=== PATIENT | female | born 1995 | race African-American/Black ===

== ENCOUNTER 2016-06-29 06:36 | Day surgery (SDC) | payer MEDICAID ==
[2016-06-29] MEDS ORDERED: Propofol 200 MG/20 ML SDV ONE (07:19)
[2016-06-29] MEDS ORDERED: Midazolam 1 MG/ML 2 ML SDV ONE (07:19)
[2016-06-29] MEDS: Lactated Ringers 1,000 ML IV SCH ×2 (07:19→08:48)
[2016-06-29] MEDS ORDERED: Dexamethasone 4 MG/ML 5 ML MDV ONE (07:19)
[2016-06-29] MEDS ORDERED: fentaNYL 100 MCG/2 ML SDV ONE (07:19)
[2016-06-29] MEDS ORDERED: Ondansetron 4 MG/2 ML SDV ONE (07:19)
--- NOTE | 2016-06-29 07:19 | PCM.PREANE ---
Preanesthetic Assessment - Anesthesia/Transfusion/Family Hx Anesthesia History: No Prior Anesthesia Family History of Anesthesia Reaction: No Transfusion History: No Prior Transfusion(s) - Review of Systems General: No Symptoms Pulmonary: No Symptoms Cardiovascular: No Symptoms Gastrointestinal: No symptoms Neurological: No Symptoms Other: Reports: None - Physical Assessment NPO Status Date: 06/28/16 Height: 1.6 m Weight: 57.153 kg ASA Class: 2 Mental Status: Alert & Oriented x3 Airway Class: Mallampati = 1 Dentition: Reports: Normal Dentition ROM/Head Extension: Full Lungs: Clear to auscultation, Normal respiratory effort Cardiovascular: Regular Rate, Regular Rhythm - Lab Values: Laboratory Last Values WBC 6.67 K/uL (4.0-11.0) 06/29/16 06:49 RBC 4.51 M/uL (4.30-5.90) 06/29/16 06:49 Hgb 13.4 g/dL (12.0-16.0) 06/29/16 06:49 Hct 38.4 % (36.0-46.0) 06/29/16 06:49 MCV 85.1 fL (80.0-98.0) 06/29/16 06:49 MCH 29.7 pg (27.0-32.0) 06/29/16 06:49 MCHC 34.9 g/dL (31.0-37.0) 06/29/16 06:49 RDW Std Deviation 38.3 fl (28.0-62.0) 06/29/16 06:49 RDW Coeff of Dionne 12 % (11.0-15.0) 06/29/16 06:49 Plt Count 194 K/uL (150-400) 06/29/16 06:49 MPV 10.40 fL (7.40-12.00) 06/29/16 06:49 Nucleated RBC % 0.0 /100WBC 06/29/16 06:49 Nucleated RBCs # 0 K/uL 06/29/16 06:49 - Allergies Allergies/Adverse Reactions: Allergies Allergy/AdvReac Type Severity Reaction Status Date / Time No Known Allergies Allergy Verified 12/28/15 18:56 - Anesthesia Plan Pre-Op Medication Ordered: None - Acknowledgements Anesthesia Type Planned: General Anesthesia Pt an Appropriate Candidate for the Planned Anesthesia: Yes Alternatives and Risks of Anesthesia Discussed w Pt/Guardian: Yes Pt/Guardian Understands and Agrees with Anesthesia Plan: Yes PreAnesthesia Questionnaire - Past Health History Medical/Surgical History: Denies Medical/Surgical History Gastrointestinal History: Reports: Other (see below) Other Gastrointestinal History: occasional heartburn LAB SUPPORT TECH History: Reports: Other (see below) Other OB/BYN History: missed AB at present Musculoskeletal History: Reports: Other (see below) Other Musculoskeletal History: scoliosis - Past Surgical History Head Surgeries/Procedures: Reports: None - SUBSTANCE USE Smoking Status *Q: Never Smoker Recreational Drug Use History: No - HOME MEDS Home Medications: Home Meds . [No Known Home Meds] 12/28/15 [History] - CURRENT (IN HOUSE) MEDS Current Meds: Current Medications Lactated Ringer's (Ringers, Lactated) 1,000 mls @ 125 mls/hr IV ASDIRECTED [facility] Preanesthetic Assessment - ANESTHESIA/TRANSFUSION/FAMILY HX Family History of Anesthesia Reaction: No - PHYSICAL ASSESSMENT Height: 1.6 m Weight: 57.153 kg - LAB Values: Laboratory Last Values WBC 6.67 K/uL (4.0-11.0) 06/29/16 06:49 RBC 4.51 M/uL (4.30-5.90) 06/29/16 06:49 Hgb 13.4 g/dL (12.0-16.0) 06/29/16 06:49 Hct 38.4 % (36.0-46.0) 06/29/16 06:49 MCV 85.1 fL (80.0-98.0) 06/29/16 06:49 MCH 29.7 pg (27.0-32.0) 06/29/16 06:49 MCHC 34.9 g/dL (31.0-37.0) 06/29/16 06:49 RDW Std Deviation 38.3 fl (28.0-62.0) 06/29/16 06:49 RDW Coeff of Dionne 12 % (11.0-15.0) 06/29/16 06:49 Plt Count 194 K/uL (150-400) 06/29/16 06:49 MPV 10.40 fL (7.40-12.00) 06/29/16 06:49 Nucleated RBC % 0.0 /100WBC 06/29/16 06:49 Nucleated RBCs # 0 K/uL 06/29/16 06:49 - ALLERGIES Allergies/Adverse Reactions: Allergies Allergy/AdvReac Type Severity Reaction Status Date / Time No Known Allergies Allergy Verified 12/28/15 18:56
[2016-06-29] MEDS ORDERED: Misoprostol 200 MCG Tab ONE (07:27)
[2016-06-29] MEDS ORDERED: Methylergonovine 0.2 MG/1 ML Amp ONE (08:14)
[2016-06-29] MEDS ORDERED: Ketorolac 30 MG/ML SDV ONE (08:21)
[2016-06-29] MEDS ORDERED: Acetaminophen/oxyCODONE 325-5 MG Tab PO PRN (08:29)
--- NOTE | 2016-06-29 08:36 | PCM.OPNOTE ---
- General Post-Op/Procedure Note Date of Surgery/Procedure: 06/29/16 Operative Procedure(s): Suction dilatiation and curettage Findings: 7 weeks sized anteverted uterus, mobile, cervix open with product of conception at external os, moderate bleeding. No adnexal masses. Pre Op Diagnosis: Missed Post-Op Diagnosis: Same Anesthesia Technique: General LMA Primary Surgeon: Leigha Caraballo Pathology: Products of conception Fluid Replacement, Intraop: 1,000 EBL in mLs: 50 Complications: None Condition: Good
--- NOTE | 2016-06-29 08:56 | PCM.POSTAN ---
POST ANESTHESIA ASSESSMENT - MENTAL STATUS Mental Status: oriented, somnolent - RESPIRATORY Respiratory Status: respiratory rate WNL, airway patent, O2 saturation stable - CARDIOVASCULAR CV Status: pulse rate WNL, blood pressure stable - GASTROINTESTINAL GI Status: no symptoms - POST OP HYDRATION Hydration Status: adequate & stable
--- NOTE | 2016-06-29 10:39 | PCM48HPAN ---
Post Anesthesia Note - EVALUATION WITHIN 48HRS OF ANESTHETIC Vital Signs in Normal Range: Yes Patient Participated in Evaluation: Yes Respiratory Function Stable: Yes Airway Patent: Yes Cardiovascular Function Stable: Yes Hydration Status Stable: Yes Pain Control Satisfactory: Yes Nausea and Vomiting Control Satisfactory: Yes Mental Status Recovered: Yes
[2016-06-29 12:04] VITALS: BP 106/68
--- NOTE | 2016-06-29 12:49 | OR ---
SURGEON: Leigha Caraballo MD DATE OF PROCEDURE: 06/29/2016 PREOPERATIVE DIAGNOSIS: Missed . POSTOPERATIVE DIAGNOSIS: Missed . PROCEDURE: Suction dilatation and curettage. ANESTHESIA: General LMA. ESTIMATED BLOOD LOSS: 100 mL. COMPLICATIONS: None. DISPOSITION: Stable to recovery room. PATHOLOGY: Products of conception. FINDINGS: Examination under anesthesia revealed an open cervical os with products of conception at the external os, Uterus, anteverted approximately 7-week size, mobile with no adnexal masses palpable. Moderate amount of bleeding. BRIEF HISTORY: The patient is a 21-year-old primigravida, who was diagnosed with missed on her initial OB visit 2 weeks ago. The patient opted to have a follow sonogram to confirm the diagnosis before making management decision, this was performed a week later confirming the diagnosis of a missed , gestational sac of approximately 7 weeks with no embryo. Management options were then discussed with the patient, and she opted to proceed with a surgical management. Risks were reviewed including, but not limited to infection, bleeding, uterine perforation, and possibility of Asherman syndrome. Understanding these risks, she signed the consent to proceed. She received 200 mcg of Cytotec orally last night to enable ease of cervical dilatation during the procedure. PROCEDURE IN DETAIL: The patient was taken to the operating room, where she received general anesthesia without difficulty. After adequate level of anesthesia, she was placed in the dorsal lithotomy position, prepped and draped in a normal sterile fashion. The bladder was emptied. Examination under anesthesia revealed the aforementioned findings. A bivalve speculum was placed into the vagina and the anterior lip of the cervix was grasped with an Allis clamp. Moderate amount of products of conception were removed from the cervical os with ovum forceps. The external cervical os was opened. Using a size 8 curved cannula, suction evacuation of the uterus was performed, with minimal amount of products of conception were retrieved. Thereafter, gentle sharp curettage were performed with a large curette until uterine grittiness was felt. After these procedures, the bleeding reduced drastically. Intraoperative sonogram was performed by ne and a thin endometrium lining was noted. The Allis clamp was removed from the anterior lip of the cervix. The area was found to be hemostatic. All the other instruments were removed from the vagina. Sponge, lap, and instrument counts were correct at the end of the procedure. The patient tolerated the procedure well and was taken to the recovery room in a stable condition. ADRY / CHA /[id number] ALLISON
== END 2016-06-29 10:20 | disposition home or self-care (01) ==
LOC: MW.SDS 06:36
PROVIDERS: ATTEND Obstetrics & Gynecology
DX: O02.1 Missed abortion (principal); Z79.899 Other long term (current) drug therapy
CPT/HCPCS: 36415; 59820; 85027; A9270; J1100; J1885; J2250; J2405; J3010; J7120; 01965; 88305; J2210; J2704

== ENCOUNTER 2017-01-30 22:56 | Observation (INO) | payer MEDICAID ==
[2017-01-30] MEDS ORDERED: Sodium Chloride 0.9% 1,000 ML IV ONE (23:00)
--- NOTE | 2017-01-30 23:02 | EDM.PDOC ---
ED HPI GENERAL MEDICAL PROBLEM - General Chief Complaint: ARTISTIC DIRECTOR Problem Stated Complaint: DIZZY Time Seen by Provider: 01/30/17 23:00 - History of Present Illness INITIAL COMMENTS - FREE TEXT/NARRATIVE: HISTORY AND PHYSICAL: History of present illness: Patient's 21-year-old female presents with a concern of menorrhagia she's had heavy menses with clots and felt slightly dizzy she's unsure of she's had no abdominal pain she does describe some mild cramping consistent with her menses she denies chest pain shortness breath or palpitations Review of systems: As per history of present illness and below otherwise all systems reviewed and negative. Past medical history: As per history of present illness and as reviewed below otherwise noncontributory. Surgical history: As per history of present illness and as reviewed below otherwise noncontributory. Social history: No reported history of drug or alcohol abuse. Family history: As per history of present illness and as reviewed below otherwise noncontributory. Physical exam: HEENT: Atraumatic, normocephalic, pupils reactive, negative for conjunctival pallor or scleral icterus, mucous membranes moist, throat clear, neck supple, nontender, trachea midline. Lungs: Clear to auscultation, breath sounds equal bilaterally, chest nontender. Heart: S1S2, regular, negative for clicks, rubs, or JVD. Abdomen: Soft, nondistended, nontender. Negative for masses or hepatosplenomegaly. Negative for costovertebral tenderness. Pelvis: Stable nontender. Genitourinary: Deferred. Rectal: Deferred. Extremities: Atraumatic, negative for cords or calf pain. Neurovascular unremarkable. Neuro: Awake, alert, oriented. Cranial nerves II through XII unremarkable. Cerebellum unremarkable. Motor and sensory unremarkable throughout. Exam nonfocal. Diagnostics: CBC CMP hCG Therapeutics: Normal saline 1 L bolus Impression: #1 Menorrhagia Definitive disposition and diagnosis as appropriate pending reevaluation and review of above. - Related Data Allergies Allergy/AdvReac Type Severity Reaction Status Date / Time No Known Allergies Allergy Verified 01/30/17 23:05 Home Meds: Home Meds . [No Known Home Meds] 12/28/15 [History] Past Medical History - Past Health History Medical/Surgical History: Denies Medical/Surgical History Gastrointestinal History: Reports: Other (See Below) Other Gastrointestinal History: occasional heartburn ARTISTIC DIRECTOR History: Reports: Other (See Below) Other OB/BYN History: missed AB at present Musculoskeletal History: Reports: Other (See Below) Other Musculoskeletal History: scoliosis - Past Surgical History Head Surgeries/Procedures: Reports: None Social & Family History - Tobacco Use Smoking Status *Q: Never Smoker - Caffeine Use Caffeine Use: Reports: Soda - Recreational Drug Use Recreational Drug Use: No ED ROS GENERAL - Review of Systems Review Of Systems: ROS reveals no pertinent complaints other than HPI. ED EXAM, GENERAL - Physical Exam Exam: See Below (See dictation) Course - Vital Signs Text/Narrative:: Case was discussed with MANAGER INTERFACE on-call who agrees to consult patient will be admitted to hospital as per ARTISTIC DIRECTOR a request case was discussed with Dr. Almanza who graciously accepted the patient will be admitted to telemetry with diagnosis of menorrhagia and symptomatic anemia Last Recorded V/S: Last Vital Signs Temp 36.0 C 01/30/17 23:00 Pulse 119 H 01/30/17 23:00 Resp 18 01/30/17 23:00 BP 124/87 01/30/17 23:00 Pulse Ox 100 01/30/17 23:00 - Orders/Labs/Meds Orders: Active Orders 24 hr Category Date Time Status INR,PT,PROTHROMBIN TIME [COAG] Stat Lab 01/31/17 00:24 Ordered TYPE AND SCREEN [BBK] Stat Lab 01/31/17 00:24 Ordered Labs: Laboratory Tests 01/30/17 01/30/17 01/30/17 Range/Units 23:05 23:05 23:05 WBC 6.58 (4.0-11.0) K/uL RBC 2.52 L (4.30-5.90) M/uL Hgb 6.6 L (12.0-16.0) g/dL Hct 19.9 L (36.0-46.0) % MCV 79.0 L (80.0-98.0) fL MCH 26.2 L (27.0-32.0) pg MCHC 33.2 (31.0-37.0) g/dL RDW Std Deviation 38.1 (28.0-62.0) fl RDW Coeff of Dionne 13 (11.0-15.0) % Plt Count 382 (150-400) K/uL MPV 9.90 (7.40-12.00) fL Neut % (Auto) 58.0 (48.0-80.0) % Lymph % (Auto) 32.4 (16.0-40.0) % [place] % (Auto) 8.8 (0.0-15.0) % Eos % (Auto) 0.3 (0.0-7.0) % Baso % (Auto) 0.5 (0.0-1.5) % Neut # (Auto) 3.8 (1.4-5.7) K/uL Lymph # (Auto) 2.1 (0.6-2.4) K/uL [place] # (Auto) 0.6 (0.0-0.8) K/uL Eos # (Auto) 0.0 (0.0-0.7) K/uL Baso # (Auto) 0.0 (0.0-0.1) K/uL Nucleated RBC % 0.0 /100WBC Nucleated RBCs # 0 K/uL Sodium 139 (136-146) mmol/L Potassium 3.8 (3.5-5.1) mmol/L Chloride 107 (98-110) mmol/L Carbon Dioxide 24 (21-31) mmol/L BUN 14 (6.0-23.0) mg/dL Creatinine 0.8 (0.6-1.5) mg/dL Est Cr Clr Drug Dosing 92.79 mL/min Estimated GFR (MDRD) > 60.0 ml/min Glucose 89 (60-110) mg/dL Calcium 9.1 (8.8-10.8) mg/dL Total Bilirubin 0.9 (0.1-1.5) mg/dL AST 15 (5-40) IU/L ALT 12 (8-54) IU/L Alkaline Phosphatase 33 L (40-150) Total Protein 6.9 (6.0-8.0) g/dL Albumin 4.2 (3.5-5.0) g/dL Globulin 2.7 (2.0-3.5) g/dL Albumin/Globulin Ratio 1.6 (1.3-2.8) HCG, Qual NEGATIVE (NEG) Meds: Medications Discontinued Medications Generic Name Dose Route Start Last Admin Trade Name Freq PRN Reason Stop Dose Admin Sodium Chloride 1,000 mls @ 999 mls/hr 01/30/17 23:00 01/30/17 23:08 Normal Saline IV 01/31/17 00:00 999 mls/hr .Bolus ONE Administration Departure - Departure Time of Disposition: 00:30 Disposition: Refer to Observation Condition: Fair Clinical Impression: Anemia, Menorrhagia - Discharge Information Forms: ED Department Discharge - My Orders Last 24 Hours: My Active Orders 01/31/17 00:24 INR,PT,PROTHROMBIN TIME [COAG] Stat TYPE AND SCREEN [BBK] Stat - Assessment/Plan Last 24 Hours: My Active Orders 01/31/17 00:24 INR,PT,PROTHROMBIN TIME [COAG] Stat TYPE AND SCREEN [BBK] Stat
[2017-01-30 23:33] LABS: CHLORIDE,CL 107 mmol/L (98-110); SODIUM,NA 139 mmol/L (136-146)
[2017-01-31] MEDS ORDERED: Docusate Sodium 100 MG Cap PO PRN (00:50)
[2017-01-31] MEDS ORDERED: Temazepam 15 MG Cap PO PRN (00:50)
[2017-01-31] MEDS ORDERED: Ondansetron 4 MG Tab.DIS PO PRN (00:50)
[2017-01-31] MEDS ORDERED: oxyCODONE 5 MG Tab PO PRN (00:50)
[2017-01-31] MEDS ORDERED: Morphine 2 MG/ML Syringe IVPUSH PRN (00:50)
[2017-01-31] MEDS ORDERED: diphenhydrAMINE 50 MG Cap PO ONE ×2 (01:28→01:45)
[2017-01-31] MEDS ORDERED: Tranexamic Acid 1,000 MG in Sodium Chloride 0.9% 100 ML IV ONE (02:46)
[2017-01-31] MEDS: Acetaminophen 325 MG Tab PO PRN ×2 (03:34→13:09)
--- NOTE | 2017-01-31 05:25 | PCM.CONS ---
H&P History of Present Illness - General Date of Service: 01/31/17 Admit Problem/Dx: Admission Diagnosis/Problem Admission Diagnosis/Problem Anemia due to chronic blood loss 21 yo P0 menometrorrhagia ,Symptomatic anemia Source of Information: Patient History Limitations: Reports: No Limitations - History of Present Illness Initial Comments - Free Text/Narative: 21 yo P0010 LMP 01/10 , complaining of heavy vaginal bleeding from december. she cannot quantify the amount of pads or tampoons. her bleeding is associated with passage of clots. She works as a TRAINING DEVELOPER in a senior living. she present to the ER with dizziness and fatigue. She gives a hx of irregular periods. she has not had a period 2 months prior to this period. test done in ER is negative. she denies cramping or lower abdominal pain. Patient had SAB in june which she did a D & C . PMH;- Nil PSH: D & C FSH ;- Non contributory , denies X 3 Allergy nil Lower Abdomen Pain Score (Numeric/FACES): 5 - Related Data Allergies/Adverse Reactions: Allergies Allergy/AdvReac Type Severity Reaction Status Date / Time No Known Allergies Allergy Verified 01/30/17 23:05 Home Medications: Home Meds . [No Known Home Meds] 12/28/15 [History] Past Medical History - Past Health History Medical/Surgical History: Denies Medical/Surgical History Gastrointestinal History: Reports: Other (See Below) Other Gastrointestinal History: occasional heartburn Genitourinary History: Reports: None SHEET LAYER History: Reports: Other (See Below) Other OB/BYN History: missed AB June 2016 Musculoskeletal History: Reports: Other (See Below) Other Musculoskeletal History: scoliosis - Infectious Disease History Infectious Disease History: Reports: None - Past Surgical History Head Surgeries/Procedures: Reports: None Female Surgical History: Reports: D&C Social & Family History - Family History Family Medical History: Noncontributory - Tobacco Use Smoking Status *Q: Never Smoker - Caffeine Use Caffeine Use: Reports: Coffee, Soda - Recreational Drug Use Recreational Drug Use: No H&P Review of Systems - Review of Systems: Review Of Systems: See Below General: Reports: No Symptoms, Malaise, Weakness, Fatigue HEENT: Reports: No Symptoms Pulmonary: Reports: No Symptoms Cardiovascular: Reports: No Symptoms Gastrointestinal: Reports: No Symptoms Genitourinary: Reports: No Symptoms Musculoskeletal: Reports: No Symptoms, Muscle Pain Skin: Reports: No Symptoms Psychiatric: Reports: No Symptoms Neurological: Reports: No Symptoms Hematologic/Lymphatic: Reports: No Symptoms Immunologic: Reports: No Symptoms Exam - Exam Exam: See Below - Vital Signs Vital Signs: Last Vital Signs Temp 36.6 C 01/31/17 04:09 Pulse 97 01/31/17 04:09 Resp 16 01/31/17 04:09 BP 108/58 L 01/31/17 04:09 Pulse Ox 100 01/31/17 04:09 Weight: 53 kg - Exam General: Alert, Oriented Neck: Supple Lungs: Clear to Auscultation Cardiovascular: Regular Rate, Regular Rhythm GI/Abdominal Exam: Normal Bowel Sounds (Female) Exam: Normal Speculum Exam (Normal external genitalia , normal urethra, minimal blood noted posterior fornix ) Rectal (Female) Exam: Normal Exam Back Exam: Normal Inspection - Patient Data Lab Results Last 24 hrs: Laboratory Results - last 24 hr 01/31/17 01/31/17 01/31/17 Range/Units 00:51 00:51 00:51 INR (0.86-1.11) APTT (18.6-31.3) SEC Fibrinogen (215-411) mg/dL Iron 12 L 12 L (50-170) ug/dL TIBC 484 H (273-456) ug/dL % Saturation 2.48 L (20-55) % Blood Type A POSITIVE Antibody Screen NEGATIVE Crossmatch See Detail 01/31/17 01/31/17 01/31/17 Range/Units 03:11 03:11 03:11 INR 1.23 H (0.86-1.11) APTT 23.1 (18.6-31.3) SEC Fibrinogen 155 L (215-411) mg/dL Iron (50-170) ug/dL TIBC (273-456) ug/dL % Saturation (20-55) % Blood Type Antibody Screen Crossmatch Result Diagrams: 01/30/17 23:05 01/30/17 23:05 Consult PN Assessment/Plan Procedures: Procedures ASSAY OF AMYLASE (12/28/15) ASSAY OF LIPASE (12/28/15) BLOOD TYPING SEROLOGIC ABO (06/11/16) BLOOD TYPING SEROLOGIC RH(D) (06/11/16) CARE OF MISCARRIAGE (06/29/16) CHORIONIC GONADOTROPIN ASSAY (12/28/15) CHORIONIC GONADOTROPIN TEST (06/21/16) COMPLETE CBC AUTOMATED (06/29/16) COMPLETE CBC W/AUTO DIFF WBC (12/28/15) COMPREHEN METABOLIC PANEL (12/28/15) CT ABD & PELVIS W/O CONTRAST (12/28/15) EMERGENCY DEPT VISIT (12/28/15) RBC ANTIBODY SCREEN (06/11/16) ROUTINE VENIPUNCTURE (06/29/16) URINALYSIS AUTO W/SCOPE (12/28/15) URINE CULTURE/COLONY COUNT (06/04/16) (1) Menorrhagia SNOMED Code(s): 175971419 Code(s): N92.0 - EXCESSIVE AND FREQUENT MENSTRUATION WITH REGULAR CYCLE Current Visit: Yes Qualifiers: Menorrahagia type: with irregular cycle Qualified Code(s): N92.1 - Excessive and frequent menstruation with irregular cycle Problem List Initiated/Reviewed/Updated: Yes My Orders Last 24 Hours: My Active Orders 01/31/17 03:11 VON [facility] FACTOR ACTIVITY Stat Plan: Labs reviewed. Severe aneamia , with Increased INR , Low Fibrinogen Assessment; 21 Yo P0 with Menometrorrhagia , Severe Anemia and Derranged coagulation panel Plan Agree with Blood transfusion ( recommend at least 3 units) IV transexamic acid 1000mg given Pelvic sonogram VWF factor, coags - jenny ling Recommend OCPs to regulate period Follow up with Dr Caraballo [facility] in 1 week to discuss treatment options
[2017-01-31] MEDS ORDERED: Furosemide 20 MG/2 ML VIAL IVPUSH ONE (06:39)
[2017-01-31] MEDS: Sodium Chloride 0.9% 1,000 ML IV SCH (07:43)
[2017-01-31 08:05] LABS: CHLORIDE,CL 110 mmol/L (98-110); SODIUM,NA 138 mmol/L (136-146)
--- NOTE | 2017-01-31 11:36 | PCM.HP ---
<Keanu Araujo - Last Filed: 01/31/17 11:30> H&P History of Present Illness - General Date of Service: 01/31/17 Admit Problem/Dx: Admission Diagnosis/Problem Admission Diagnosis/Problem Anemia due to chronic blood loss 21 yo P0 menometrorrhagia ,Symptomatic anemia Source of Information: Patient History Limitations: Reports: No Limitations - History of Present Illness Initial Comments - Free Text/Narative: This is a 21-year-old female with a history of spontaneous , , that presents to the emergency room complaining of lightheadedness and mild nausea. As per the patient, she has been having heavy periods for the past 3 weeks now and is also passing clots. She says that her dizziness has been progressing. She denies any fevers, chills, chest pain or shortness of breath. ER course: CBC indicates a significant anemia with a hemoglobin of 6.6 Beta hCG obtained which was negative Patient was mildly hypotensive Admitted for observation and blood transfusion. MANAGER WILLOW consult was placed IV normal saline bolus 1 Lower Abdomen Pain Score (Numeric/FACES): 0 - Related Data Allergies/Adverse Reactions: Allergies Allergy/AdvReac Type Severity Reaction Status Date / Time No Known Allergies Allergy Verified 01/30/17 23:05 Home Medications: Home Meds . [No Known Home Meds] 12/28/15 [History] Past Medical History - Past Health History Medical/Surgical History: Denies Medical/Surgical History Gastrointestinal History: Reports: Other (See Below) Other Gastrointestinal History: occasional heartburn Genitourinary History: Reports: None MANAGER WILLOW History: Reports: Other (See Below) Other OB/BYN History: missed AB June 2016 Musculoskeletal History: Reports: Other (See Below) Other Musculoskeletal History: scoliosis - Infectious Disease History Infectious Disease History: Reports: None - Past Surgical History Head Surgeries/Procedures: Reports: None Female Surgical History: Reports: D&C Social & Family History - Family History Family Medical History: Noncontributory - Tobacco Use Smoking Status *Q: Never Smoker - Caffeine Use Caffeine Use: Reports: Coffee, Soda - Recreational Drug Use Recreational Drug Use: No H&P Review of Systems - Review of Systems: Review Of Systems: See Below General: Reports: Weakness, Fatigue HEENT: Reports: No Symptoms Pulmonary: Reports: No Symptoms Cardiovascular: Reports: Lightheadedness. Denies: Syncope Gastrointestinal: Reports: No Symptoms Genitourinary: Reports: Abnormal Menses, Dysmenorrhea Musculoskeletal: Reports: No Symptoms Skin: Reports: No Symptoms Psychiatric: Reports: No Symptoms Neurological: Reports: No Symptoms Hematologic/Lymphatic: Reports: Anemia Immunologic: Reports: No Symptoms Exam - Exam Exam: See Below - Vital Signs Vital Signs: Last Vital Signs Temp 36.8 C 01/31/17 11:28 Pulse 97 01/31/17 11:28 Resp 16 01/31/17 11:28 BP 91/53 L 01/31/17 11:28 Pulse Ox 99 01/31/17 11:28 Weight: 53 kg - Exam Quality Assessment: DVT Prophylaxis General: Alert, Oriented HEENT: Conjunctiva Clear Neck: Supple, Trachea Midline, JVD Lungs: Clear to Auscultation, Normal Respiratory Effort Cardiovascular: Regular Rate, Regular Rhythm, Normal S1, Normal S2 GI/Abdominal Exam: Normal Bowel Sounds, Soft, Non-Tender, No Organomegaly Rectal (Female) Exam: Normal Exam, Normal Rectal Tone Back Exam: Normal Inspection, Full Range of Motion. No: CVA Tenderness (L), CVA Tenderness (R) Extremities: Normal Inspection, No Pedal Edema, Normal Capillary Refill Neuro Extensive - Motor, Sensory, Reflexes: CN II-XII Intact - Patient Data Lab Results Last 24 hrs: Laboratory Results - last 24 hr 01/31/17 01/31/17 01/31/17 Range/Units 00:51 00:51 00:51 WBC (4.0-11.0) K/uL RBC (4.30-5.90) M/uL Hgb (12.0-16.0) g/dL Hct (36.0-46.0) % MCV (80.0-98.0) fL MCH (27.0-32.0) pg MCHC (31.0-37.0) g/dL RDW Std Deviation (28.0-62.0) fl RDW Coeff of Dionne (11.0-15.0) % Plt Count (150-400) K/uL MPV (7.40-12.00) fL Neut % (Auto) (48.0-80.0) % Lymph % (Auto) (16.0-40.0) % [place] % (Auto) (0.0-15.0) % Eos % (Auto) (0.0-7.0) % Baso % (Auto) (0.0-1.5) % Neut # (Auto) (1.4-5.7) K/uL Lymph # (Auto) (0.6-2.4) K/uL [place] # (Auto) (0.0-0.8) K/uL Eos # (Auto) (0.0-0.7) K/uL Baso # (Auto) (0.0-0.1) K/uL Nucleated RBC % /100WBC Nucleated RBCs # K/uL INR (0.86-1.11) APTT (18.6-31.3) SEC Fibrinogen (215-411) mg/dL Sodium (136-146) mmol/L Potassium (3.5-5.1) mmol/L Chloride (98-110) mmol/L Carbon Dioxide (21-31) mmol/L BUN (6.0-23.0) mg/dL Creatinine (0.6-1.5) mg/dL Est Cr Clr Drug Dosing mL/min Estimated GFR (MDRD) ml/min Glucose (60-110) mg/dL Calcium (8.8-10.8) mg/dL Iron 12 L 12 L (50-170) ug/dL TIBC 484 H (273-456) ug/dL % Saturation 2.48 L (20-55) % Total Bilirubin (0.1-1.5) mg/dL AST (5-40) IU/L ALT (8-54) IU/L Alkaline Phosphatase (40-150) Total Protein (6.0-8.0) g/dL Albumin (3.5-5.0) g/dL Globulin (2.0-3.5) g/dL Albumin/Globulin Ratio (1.3-2.8) Blood Type A POSITIVE Antibody Screen NEGATIVE Crossmatch See Detail 01/31/17 01/31/17 01/31/17 Range/Units 03:11 03:11 03:11 WBC (4.0-11.0) K/uL RBC (4.30-5.90) M/uL Hgb (12.0-16.0) g/dL Hct (36.0-46.0) % MCV (80.0-98.0) fL MCH (27.0-32.0) pg MCHC (31.0-37.0) g/dL RDW Std Deviation (28.0-62.0) fl RDW Coeff of Dionne (11.0-15.0) % Plt Count (150-400) K/uL MPV (7.40-12.00) fL Neut % (Auto) (48.0-80.0) % Lymph % (Auto) (16.0-40.0) % [place] % (Auto) (0.0-15.0) % Eos % (Auto) (0.0-7.0) % Baso % (Auto) (0.0-1.5) % Neut # (Auto) (1.4-5.7) K/uL Lymph # (Auto) (0.6-2.4) K/uL [place] # (Auto) (0.0-0.8) K/uL Eos # (Auto) (0.0-0.7) K/uL Baso # (Auto) (0.0-0.1) K/uL Nucleated RBC % /100WBC Nucleated RBCs # K/uL INR 1.23 H (0.86-1.11) APTT 23.1 (18.6-31.3) SEC Fibrinogen 155 L (215-411) mg/dL Sodium (136-146) mmol/L Potassium (3.5-5.1) mmol/L Chloride (98-110) mmol/L Carbon Dioxide (21-31) mmol/L BUN (6.0-23.0) mg/dL Creatinine (0.6-1.5) mg/dL Est Cr Clr Drug Dosing mL/min Estimated GFR (MDRD) ml/min Glucose (60-110) mg/dL Calcium (8.8-10.8) mg/dL Iron (50-170) ug/dL TIBC (273-456) ug/dL % Saturation (20-55) % Total Bilirubin (0.1-1.5) mg/dL AST (5-40) IU/L ALT (8-54) IU/L Alkaline Phosphatase (40-150) Total Protein (6.0-8.0) g/dL Albumin (3.5-5.0) g/dL Globulin (2.0-3.5) g/dL Albumin/Globulin Ratio (1.3-2.8) Blood Type Antibody Screen Crossmatch 01/31/17 01/31/17 Range/Units 07:35 07:35 WBC 5.31 (4.0-11.0) K/uL RBC 2.79 L (4.30-5.90) M/uL Hgb 7.4 L (12.0-16.0) g/dL Hct 22.3 L (36.0-46.0) % MCV 79.9 L (80.0-98.0) fL MCH 26.5 L (27.0-32.0) pg MCHC 33.2 (31.0-37.0) g/dL RDW Std Deviation 38.4 (28.0-62.0) fl RDW Coeff of Dionne 13 (11.0-15.0) % Plt Count 273 (150-400) K/uL MPV 9.50 (7.40-12.00) fL Neut % (Auto) 41.7 L (48.0-80.0) % Lymph % (Auto) 45.2 H (16.0-40.0) % [place] % (Auto) 12.1 (0.0-15.0) % Eos % (Auto) 0.4 (0.0-7.0) % Baso % (Auto) 0.6 (0.0-1.5) % Neut # (Auto) 2.2 (1.4-5.7) K/uL Lymph # (Auto) 2.4 (0.6-2.4) K/uL [place] # (Auto) 0.6 (0.0-0.8) K/uL Eos # (Auto) 0.0 (0.0-0.7) K/uL Baso # (Auto) 0.0 (0.0-0.1) K/uL Nucleated RBC % 0.0 /100WBC Nucleated RBCs # 0 K/uL INR (0.86-1.11) APTT (18.6-31.3) SEC Fibrinogen (215-411) mg/dL Sodium 138 (136-146) mmol/L Potassium 3.4 L (3.5-5.1) mmol/L Chloride 110 (98-110) mmol/L Carbon Dioxide 23 (21-31) mmol/L BUN 11 (6.0-23.0) mg/dL Creatinine 0.7 (0.6-1.5) mg/dL Est Cr Clr Drug Dosing 106.01 mL/min Estimated GFR (MDRD) > 60.0 ml/min Glucose 93 (60-110) mg/dL Calcium 8.2 L (8.8-10.8) mg/dL Iron (50-170) ug/dL TIBC (273-456) ug/dL % Saturation (20-55) % Total Bilirubin 1.1 (0.1-1.5) mg/dL AST 12 (5-40) IU/L ALT 9 (8-54) IU/L Alkaline Phosphatase 28 L (40-150) Total Protein 5.3 L (6.0-8.0) g/dL Albumin 3.3 L (3.5-5.0) g/dL Globulin 2.0 (2.0-3.5) g/dL Albumin/Globulin Ratio 1.7 (1.3-2.8) Blood Type Antibody Screen Crossmatch Result Diagrams: 01/31/17 07:35 01/31/17 07:35 *Q Meaningful Use (ADM) - VTE *Q VTE Criteria *Q: VTE Pharmacological Contraindications *Q: Patient has Severe Anemia - Stroke *Q Stroke Criteria *Q: - AMI *Q AMI Criteria *Q: Problem List Initiated/Reviewed/Updated: Yes Orders Last 24hrs: Active Orders 24 hr Category Date Time Status Patient Status [ADT] Routine ADT 01/31/17 00:50 Active Ambulate [RC] ASDIRECTED Care 01/31/17 00:50 Active Antiembolic Devices [RC] PER UNIT ROUTINE Care 01/31/17 00:54 Active Cardiac Monitoring [RC] Q8H Care 01/31/17 00:52 Active Notify Provider Consults [RC] ASDIRECTED Care 01/31/17 00:56 Active Oxygen Therapy [RC] PRN Care 01/31/17 00:50 Active Telemetry Monitoring [Cardiac Monitoring] [RC] . Care 01/31/17 00:48 Active DIRECTED Up ad Jessica [RC] ASDIRECTED Care 01/31/17 00:50 Active VTE/DVT Education [RC] PER UNIT ROUTINE Care 01/31/17 00:50 Active Verify Patient Consent Obtain [RC] ASDIRECTED Care 01/31/17 01:01 Active Vital Signs [RC] Q4H Care 01/31/17 00:50 Active Consult to Physician [CONS] Routine Cons 01/31/17 00:50 Active Regular Diet [DIET] Diet 01/31/17 Breakfast Active Pelvis Non OB Comp [US] Routine Exams 01/31/17 11:27 Ordered CBC WITH AUTO DIFF [HEME] AM Lab 02/01/17 05:11 Ordered FERRITIN [REF] Routine Lab 01/31/17 00:51 Received RED BLOOD CELLS LP [BBK] Stat Lab 01/31/17 00:51 Results VON WILLEBRAND FACTOR ACTIVITY Stat Lab 01/31/17 03:11 Received Acetaminophen [Tylenol] Med 01/31/17 00:50 Active 650 mg PO Q4H PRN Docusate Sodium [Colace] Med 01/31/17 00:50 Active 100 mg PO BID PRN Furosemide [Lasix] Med 01/31/17 09:56 Active 20 mg IV ASDIRECTED PRN Morphine Med 01/31/17 00:50 Active 2 mg IVPUSH Q2H PRN Ondansetron [Zofran ODT] Med 01/31/17 00:50 Active 4 mg PO Q6H PRN Sodium Chloride 0.9% [Normal Saline] 1,000 ml Med 01/31/17 01:00 Active IV ASDIRECTED Temazepam [Restoril] Med 01/31/17 00:50 Active 15 mg PO BEDTIME PRN oxyCODONE Med 01/31/17 00:50 Active 5 mg PO Q4H PRN Sequential Compression Device [OM.PC] Per Unit Routine Oth 01/31/17 00:53 Ordered Transfuse Red Blood Cells [COMM] Stat Oth 01/31/17 00:57 Ordered VTE Pharmacological Contraindications [AST] Per Unit Oth 01/31/17 00:50 Ordered Routine Resuscitation Status Routine Resus Stat 01/31/17 00:50 Ordered Medication Orders Acetaminophen (Tylenol) 650 mg PO Q4H PRN PRN Reason: Pain (Mild 1-3)/fever Last Admin: 01/31/17 03:34 Dose: 650 mg Docusate Sodium (Colace) 100 mg PO BID PRN PRN Reason: Constipation Furosemide (Lasix) 20 mg IV ASDIRECTED PRN PRN Reason: IN BETWEEN EACH UNIT OF BLOOD Sodium Chloride (Normal Saline) 1,000 mls @ 75 mls/hr IV ASDIRECTED JOSI Last Admin: 01/31/17 07:43 Dose: 75 mls/hr Morphine Sulfate (Morphine) 2 mg IVPUSH Q2H PRN PRN Reason: Pain (severe 7-10) Stop: 02/01/17 00:55 Ondansetron HCl (Zofran Odt) 4 mg PO Q6H PRN PRN Reason: nausea, able to take PO Oxycodone HCl (Oxycodone) 5 mg PO Q4H PRN PRN Reason: Pain (moderate 4-6) Temazepam (Restoril) 15 mg PO BEDTIME PRN PRN Reason: Sleep Assessment/Plan Comment:: Assessment #1. Severe anemia secondary to likely menorrhagia 2. Elevated INR, low fibrinogen #2. History of menorrhagia, D&C secondary to an Plan #1. Admit to the floor for observation #2. 4 units of packed red blood cells. Will recheck CBC in the evening and again tomorrow morning. Von Willebrand factor level ordered #3. Pelvic ultrasound as per MANAGER WILLOW recommendations. We appreciate the recommendations. #4. Lasix in between transfusion <Marin Almanza - Last Filed: 01/31/17 15:45> H&P History of Present Illness - General Admit Problem/Dx: Admission Diagnosis/Problem Admission Diagnosis/Problem Anemia due to chronic blood loss I performed a history and physical examination of the patient and I have discussed the management with the resident. I have reviewed the residents note and agree with the documented findings and plan of care Exam - Vital Signs Vital Signs: Last Vital Signs Temp 36.3 C 01/31/17 13:05 Pulse 99 01/31/17 13:05 Resp 17 01/31/17 13:05 BP 107/72 01/31/17 13:05 Pulse Ox 99 01/31/17 13:05 - Patient Data Lab Results Last 24 hrs: Laboratory Results - last 24 hr 01/31/17 01/31/17 01/31/17 Range/Units 00:51 00:51 00:51 WBC (4.0-11.0) K/uL RBC (4.30-5.90) M/uL Hgb (12.0-16.0) g/dL Hct (36.0-46.0) % MCV (80.0-98.0) fL MCH (27.0-32.0) pg MCHC (31.0-37.0) g/dL RDW Std Deviation (28.0-62.0) fl RDW Coeff of Dionne (11.0-15.0) % Plt Count (150-400) K/uL MPV (7.40-12.00) fL Neut % (Auto) (48.0-80.0) % Lymph % (Auto) (16.0-40.0) % [place] % (Auto) (0.0-15.0) % Eos % (Auto) (0.0-7.0) % Baso % (Auto) (0.0-1.5) % Neut # (Auto) (1.4-5.7) K/uL Lymph # (Auto) (0.6-2.4) K/uL [place] # (Auto) (0.0-0.8) K/uL Eos # (Auto) (0.0-0.7) K/uL Baso # (Auto) (0.0-0.1) K/uL Nucleated RBC % /100WBC Nucleated RBCs # K/uL INR (0.86-1.11) APTT (18.6-31.3) SEC Fibrinogen (215-411) mg/dL Sodium (136-146) mmol/L Potassium (3.5-5.1) mmol/L Chloride (98-110) mmol/L Carbon Dioxide (21-31) mmol/L BUN (6.0-23.0) mg/dL Creatinine (0.6-1.5) mg/dL Est Cr Clr Drug Dosing mL/min Estimated GFR (MDRD) ml/min Glucose (60-110) mg/dL Calcium (8.8-10.8) mg/dL Iron 12 L 12 L (50-170) ug/dL TIBC 484 H (273-456) ug/dL % Saturation 2.48 L (20-55) % Total Bilirubin (0.1-1.5) mg/dL AST (5-40) IU/L ALT (8-54) IU/L Alkaline Phosphatase (40-150) Total Protein (6.0-8.0) g/dL Albumin (3.5-5.0) g/dL Globulin (2.0-3.5) g/dL Albumin/Globulin Ratio (1.3-2.8) Blood Type A POSITIVE Antibody Screen NEGATIVE Crossmatch See Detail 01/31/17 01/31/17 01/31/17 Range/Units 03:11 03:11 03:11 WBC (4.0-11.0) K/uL RBC (4.30-5.90) M/uL Hgb (12.0-16.0) g/dL Hct (36.0-46.0) % MCV (80.0-98.0) fL MCH (27.0-32.0) pg MCHC (31.0-37.0) g/dL RDW Std Deviation (28.0-62.0) fl RDW Coeff of Dionne (11.0-15.0) % Plt Count (150-400) K/uL MPV (7.40-12.00) fL Neut % (Auto) (48.0-80.0) % Lymph % (Auto) (16.0-40.0) % [place] % (Auto) (0.0-15.0) % Eos % (Auto) (0.0-7.0) % Baso % (Auto) (0.0-1.5) % Neut # (Auto) (1.4-5.7) K/uL Lymph # (Auto) (0.6-2.4) K/uL [place] # (Auto) (0.0-0.8) K/uL Eos # (Auto) (0.0-0.7) K/uL Baso # (Auto) (0.0-0.1) K/uL Nucleated RBC % /100WBC Nucleated RBCs # K/uL INR 1.23 H (0.86-1.11) APTT 23.1 (18.6-31.3) SEC Fibrinogen 155 L (215-411) mg/dL Sodium (136-146) mmol/L Potassium (3.5-5.1) mmol/L Chloride (98-110) mmol/L Carbon Dioxide (21-31) mmol/L BUN (6.0-23.0) mg/dL Creatinine (0.6-1.5) mg/dL Est Cr Clr Drug Dosing mL/min Estimated GFR (MDRD) ml/min Glucose (60-110) mg/dL Calcium (8.8-10.8) mg/dL Iron (50-170) ug/dL TIBC (273-456) ug/dL % Saturation (20-55) % Total Bilirubin (0.1-1.5) mg/dL AST (5-40) IU/L ALT (8-54) IU/L Alkaline Phosphatase (40-150) Total Protein (6.0-8.0) g/dL Albumin (3.5-5.0) g/dL Globulin (2.0-3.5) g/dL Albumin/Globulin Ratio (1.3-2.8) Blood Type Antibody Screen Crossmatch 01/31/17 01/31/17 Range/Units 07:35 07:35 WBC 5.31 (4.0-11.0) K/uL RBC 2.79 L (4.30-5.90) M/uL Hgb 7.4 L (12.0-16.0) g/dL Hct 22.3 L (36.0-46.0) % MCV 79.9 L (80.0-98.0) fL MCH 26.5 L (27.0-32.0) pg MCHC 33.2 (31.0-37.0) g/dL RDW Std Deviation 38.4 (28.0-62.0) fl RDW Coeff of Dionne 13 (11.0-15.0) % Plt Count 273 (150-400) K/uL MPV 9.50 (7.40-12.00) fL Neut % (Auto) 41.7 L (48.0-80.0) % Lymph % (Auto) 45.2 H (16.0-40.0) % [place] % (Auto) 12.1 (0.0-15.0) % Eos % (Auto) 0.4 (0.0-7.0) % Baso % (Auto) 0.6 (0.0-1.5) % Neut # (Auto) 2.2 (1.4-5.7) K/uL Lymph # (Auto) 2.4 (0.6-2.4) K/uL [place] # (Auto) 0.6 (0.0-0.8) K/uL Eos # (Auto) 0.0 (0.0-0.7) K/uL Baso # (Auto) 0.0 (0.0-0.1) K/uL Nucleated RBC % 0.0 /100WBC Nucleated RBCs # 0 K/uL INR (0.86-1.11) APTT (18.6-31.3) SEC Fibrinogen (215-411) mg/dL Sodium 138 (136-146) mmol/L Potassium 3.4 L (3.5-5.1) mmol/L Chloride 110 (98-110) mmol/L Carbon Dioxide 23 (21-31) mmol/L BUN 11 (6.0-23.0) mg/dL Creatinine 0.7 (0.6-1.5) mg/dL Est Cr Clr Drug Dosing 106.01 mL/min Estimated GFR (MDRD) > 60.0 ml/min Glucose 93 (60-110) mg/dL Calcium 8.2 L (8.8-10.8) mg/dL Iron (50-170) ug/dL TIBC (273-456) ug/dL % Saturation (20-55) % Total Bilirubin 1.1 (0.1-1.5) mg/dL AST 12 (5-40) IU/L ALT 9 (8-54) IU/L Alkaline Phosphatase 28 L (40-150) Total Protein 5.3 L (6.0-8.0) g/dL Albumin 3.3 L (3.5-5.0) g/dL Globulin 2.0 (2.0-3.5) g/dL Albumin/Globulin Ratio 1.7 (1.3-2.8) Blood Type Antibody Screen Crossmatch Result Diagrams: 01/31/17 07:35 01/31/17 07:35 *Q Meaningful Use (ADM) - VTE *Q VTE Criteria *Q: - Stroke *Q Stroke Criteria *Q: - AMI *Q AMI Criteria *Q: Orders Last 24hrs: Active Orders 24 hr Category Date Time Status Patient Status [ADT] Routine ADT 01/31/17 00:50 Active Ambulate [RC] ASDIRECTED Care 01/31/17 00:50 Active Antiembolic Devices [RC] PER UNIT ROUTINE Care 01/31/17 00:54 Active Cardiac Monitoring [RC] Q8H Care 01/31/17 00:52 Active Notify Provider Consults [RC] ASDIRECTED Care 01/31/17 00:56 Active Oxygen Therapy [RC] PRN Care 01/31/17 00:50 Active Telemetry Monitoring [Cardiac Monitoring] [RC] . Care 01/31/17 00:48 Active DIRECTED Up ad Jessica [RC] ASDIRECTED Care 01/31/17 00:50 Active VTE/DVT Education [RC] PER UNIT ROUTINE Care 01/31/17 00:50 Active Verify Patient Consent Obtain [RC] ASDIRECTED Care 01/31/17 01:01 Active Vital Signs [RC] Q4H Care 01/31/17 00:50 Active Consult to Physician [CONS] Routine Cons 01/31/17 00:50 Active Regular Diet [DIET] Diet 01/31/17 Breakfast Active Pelvis Non OB Comp [US] Routine Exams 01/31/17 11:27 Ordered CBC WITH AUTO DIFF [HEME] AM Lab 02/01/17 05:11 Ordered FERRITIN [REF] Routine Lab 01/31/17 00:51 Received RED BLOOD CELLS LP [BBK] Stat Lab 01/31/17 00:51 Results VON WILLEBRAND FACTOR ACTIVITY Stat Lab 01/31/17 03:11 Received Acetaminophen [Tylenol] Med 01/31/17 00:50 Active 650 mg PO Q4H PRN Docusate Sodium [Colace] Med 01/31/17 00:50 Active 100 mg PO BID PRN Furosemide [Lasix] Med 01/31/17 09:56 Active 20 mg IV ASDIRECTED PRN Morphine Med 01/31/17 00:50 Active 2 mg IVPUSH Q2H PRN Ondansetron [Zofran ODT] Med 01/31/17 00:50 Active 4 mg PO Q6H PRN Sodium Chloride 0.9% [Normal Saline] 1,000 ml Med 01/31/17 01:00 Active IV ASDIRECTED Temazepam [Restoril] Med 01/31/17 00:50 Active 15 mg PO BEDTIME PRN oxyCODONE Med 01/31/17 00:50 Active 5 mg PO Q4H PRN Sequential Compression Device [OM.PC] Per Unit Routine Oth 01/31/17 00:53 Ordered Transfuse Red Blood Cells [COMM] Stat Oth 01/31/17 00:57 Ordered VTE Pharmacological Contraindications [AST] Per Unit Oth 01/31/17 00:50 Ordered Routine Resuscitation Status Routine Resus Stat 01/31/17 00:50 Ordered Medication Orders Acetaminophen (Tylenol) 650 mg PO Q4H PRN PRN Reason: Pain (Mild 1-3)/fever Last Admin: 01/31/17 13:09 Dose: 650 mg Admin: 01/31/17 03:34 Dose: 650 mg Docusate Sodium (Colace) 100 mg PO BID PRN PRN Reason: Constipation Furosemide (Lasix) 20 mg IV ASDIRECTED PRN PRN Reason: IN BETWEEN EACH UNIT OF BLOOD Last Admin: 01/31/17 11:58 Dose: 20 mg Sodium Chloride (Normal Saline) 1,000 mls @ 75 mls/hr IV ASDIRECTED JOSI Last Admin: 01/31/17 07:43 Dose: 75 mls/hr Morphine Sulfate (Morphine) 2 mg IVPUSH Q2H PRN PRN Reason: Pain (severe 7-10) Stop: 02/01/17 00:55 Ondansetron HCl (Zofran Odt) 4 mg PO Q6H PRN PRN Reason: nausea, able to take PO Oxycodone HCl (Oxycodone) 5 mg PO Q4H PRN PRN Reason: Pain (moderate 4-6) Temazepam (Restoril) 15 mg PO BEDTIME PRN PRN Reason: Sleep
[2017-01-31] MEDS: Furosemide 20 MG/2 ML VIAL IV PRN ×3 (11:58→20:42)
[2017-01-31] MEDS: Ferrous Sulfate 325 MG Tab PO SCH (18:46)
[2017-02-01] MEDS: Acetaminophen 325 MG Tab PO PRN ×2 (02:22→09:05)
[2017-02-01 08:51] VITALS: BP 140/85
[2017-02-01] MEDS: Ferrous Sulfate 325 MG Tab PO SCH ×2 (09:03→11:11)
[2017-02-01] MEDS: Sodium Chloride 0.9% 1,000 ML IV SCH (09:07)
--- NOTE | 2017-02-01 10:14 | US ---
EXAMINATION: Transabdominal and transvaginal pelvic ultrasound HISTORY: Menorrhagia COMPARISON: None TECHNIQUE: Grayscale, color Doppler, spectral Doppler images obtained transabdominally and transvagin ally. FINDINGS: The uterus is normal in size, contour, and echogenicity without a focal uterine mass. Endom etrial stripe thickness is normal at 1.1 cm. No significant free pelvic fluid. Both the left and right ovaries are grossly normal in size, contour, and echogenicity containing mult iple small peripheral follicles. No adnexal masses. IMPRESSION: 1. Multiple peripheral follicles within the ovaries bilaterally, correlate for PCOS. 2. Otherwise unremarkable pelvic ultrasound.
[2017-02-01] MEDS ORDERED: Potassium Chloride 20 MEQ Tab.ER PO ONE (10:21)
--- NOTE | 2017-02-01 11:07 | PCM.DCSUM1 ---
Discharge Summary - Hospital Course Free Text/Narrative:: Admission date January 31, 2017 Discharge date February 01, 2017 Admission diagnosis #1. Severe anemia #2. Menorrhagia #3. History of D&C Discharge diagnosis #1. Anemia improved #2. PCOS as per pelvic ultrasound #3. Iron deficiency anemia Hospital course: This is a 21-year-old female, who presented to the emergency room on 10 February complaining of lightheadedness and dizziness. As per the patient, she' s been having her period for the past 3 weeks which was heavy with clots. In the emergency room, CBC indicated a hemoglobin of 6.6, she was mildly hypotensive. She was then admitted to observation for transfusion for packed red blood cells and an OB consult was placed. She is given 4 units of packed red blood cells without any complications. Recheck for her hemoglobin prior to discharge was 14.4. As per the OB recommendations, a pelvic ultrasound was done which indicated PCOS. Was also advised to start this patient on a form of oral contraceptive. As per the patient, the next morning when evaluated she did feel a lot better but it complaining of lightheadedness when she stood up. Physical therapy evaluation was completed, who deemed this patient able to ambulate. Orthostatic vital signs were obtained which were unremarkable. Follow-up: Primary care provider, Dr. Araujo along with Dr. Caraballo, AIR BR[employer] DECORATOR Discharge medications: #1. Ortho Tri-Cyclen No. 28 tabs, 1 tab by mouth daily. #2. Ferrous sulfate 325 mg by mouth 3 times a day with meals #90 times, 30 days. Disposition: To home - Discharge Data Discharge Date: 02/01/17 Discharge Disposition: Home, Self-Care 01 Condition: Fair - Patient Summary/Data Consults: Consultations 01/31/17 00:50 Consult to Physician [CONS] Routine 02/01/17 08:47 Consult to Physical Therapy [PT Evaluation and Treatment] [CONS] Routine - Patient Instructions Diet: Regular Diet as Tolerated Activity: As Tolerated Driving: Do Not Drive Showering/Bathing: May Shower Notify Provider of: Fever, Increased Pain Other/Special Instructions: dizziness, nausea, excessive bleeding - Discharge Plan Prescriptions/Med Rec: Ferrous Sulfate 325 mg PO TIDMEALS 30 Days #90 tablet Norgestimate-Ethinyl Estradiol [Ortho Tri-Cyclen 28 Tablet] 1 each PO DAILY 30 Days #30 tablet Home Medications: Home Meds Ferrous Sulfate 325 mg PO TIDMEALS 30 Days #90 tablet 02/01/17 [Rx] Norgestimate-Ethinyl Estradiol [Ortho Tri-Cyclen 28 Tablet] 1 each PO DAILY 30 Days #30 tablet 02/01/17 [Rx] Forms: ED Department Discharge Referrals: Leigha Caraballo MD [Physician] - 02/13/17 9:45 am Keanu Araujo MD [Resident] - - Discharge Summary/Plan Comment DC Time >30 min.: No Discharge Summary/Plan Comment: Admission date January 31, 2017 Discharge date February 01, 2017 Admission diagnosis #1. Severe anemia #2. Menorrhagia #3. History of D&C Discharge diagnosis #1. Anemia improved #2. PCOS as per pelvic ultrasound #3. Iron deficiency anemia Hospital course: This is a 21-year-old female, who presented to the emergency room on 10 February complaining of lightheadedness and dizziness. As per the patient, she' s been having her period for the past 3 weeks which was heavy with clots. In the emergency room, CBC indicated a hemoglobin of 6.6, she was mildly hypotensive. She was then admitted to observation for transfusion for packed red blood cells and an OB consult was placed. She is given 4 units of packed red blood cells without any complications. Recheck for her hemoglobin prior to discharge was 14.4. As per the OB recommendations, a pelvic ultrasound was done which indicated PCOS. Was also advised to start this patient on a form of oral contraceptive. As per the patient, the next morning when evaluated she did feel a lot better but it complaining of lightheadedness when she stood up. Physical therapy evaluation was completed, who deemed this patient able to ambulate. Orthostatic vital signs were obtained which were unremarkable. Follow-up: Primary care provider, Dr. Araujo along with Dr. Caraballo, AIR BRUSH DECORATOR Discharge medications: #1. Ortho Tri-Cyclen No. 28 tabs, 1 tab by mouth daily. #2. Ferrous sulfate 325 mg by mouth 3 times a day with meals #90 times, 30 days. Disposition: To home - Patient Data Vitals - Most Recent: Last Vital Signs Temp 36.7 C 02/01/17 08:35 Pulse 94 02/01/17 08:35 Resp 16 02/01/17 08:35 BP 140/85 02/01/17 08:35 Pulse Ox 100 02/01/17 08:35 Weight - Most Recent: 53 kg I&O - Last 24 hours: Intake & Output 01/31/17 02/01/17 02/01/17 22:59 06:59 14:59 Intake Total 2173 1186 Output Total 3100 1999 Balance -617 -625 Lab Results - Last 24 hrs: Laboratory Results - last 24 hr 01/31/17 01/31/17 02/01/17 Range/Units 00:51 00:51 00:17 WBC (4.0-11.0) K/uL RBC (4.30-5.90) M/uL Hgb 14.2 (12.0-16.0) g/dL Hct 40.2 (36.0-46.0) % MCV (80.0-98.0) fL MCH (27.0-32.0) pg MCHC (31.0-37.0) g/dL RDW Std Deviation (28.0-62.0) fl RDW Coeff of Dionne (11.0-15.0) % Plt Count (150-400) K/uL MPV (7.40-12.00) fL Neut % (Auto) (48.0-80.0) % Lymph % (Auto) (16.0-40.0) % [place] % (Auto) (0.0-15.0) % Eos % (Auto) (0.0-7.0) % Baso % (Auto) (0.0-1.5) % Neut # (Auto) (1.4-5.7) K/uL Lymph # (Auto) (0.6-2.4) K/uL [place] # (Auto) (0.0-0.8) K/uL Eos # (Auto) (0.0-0.7) K/uL Baso # (Auto) (0.0-0.1) K/uL Nucleated RBC % /100WBC Nucleated RBCs # K/uL Ferritin 2 L (11-307) ng/mL Blood Type A POSITIVE Antibody Screen NEGATIVE Crossmatch See Detail 02/01/17 Range/Units 05:21 WBC 6.15 (4.0-11.0) K/uL RBC 4.93 (4.30-5.90) M/uL Hgb 14.1 (12.0-16.0) g/dL Hct 40.2 (36.0-46.0) % MCV 81.5 (80.0-98.0) fL MCH 28.6 (27.0-32.0) pg MCHC 35.1 (31.0-37.0) g/dL RDW Std Deviation 40.9 (28.0-62.0) fl RDW Coeff of Dionne 14 (11.0-15.0) % Plt Count 254 (150-400) K/uL MPV 9.90 (7.40-12.00) fL Neut % (Auto) 52.7 (48.0-80.0) % Lymph % (Auto) 33.2 (16.0-40.0) % [place] % (Auto) 12.7 (0.0-15.0) % Eos % (Auto) 0.7 (0.0-7.0) % Baso % (Auto) 0.7 (0.0-1.5) % Neut # (Auto) 3.3 (1.4-5.7) K/uL Lymph # (Auto) 2.0 (0.6-2.4) K/uL [place] # (Auto) 0.8 (0.0-0.8) K/uL Eos # (Auto) 0.0 (0.0-0.7) K/uL Baso # (Auto) 0.0 (0.0-0.1) K/uL Nucleated RBC % 0.0 /100WBC Nucleated RBCs # 0 K/uL Ferritin (11-307) ng/mL Blood Type Antibody Screen Crossmatch Med Orders - Current: Current Medications Acetaminophen (Tylenol) 650 mg PO Q4H PRN PRN Reason: Pain (Mild 1-3)/fever Last Admin: 02/01/17 09:05 Dose: 650 mg Docusate Sodium (Colace) 100 mg PO BID PRN PRN Reason: Constipation Last Admin: 02/01/17 03:07 Dose: 100 mg Ferrous Sulfate (Ferrous Sulfate) 325 mg PO TIDMEALS JOSI Last Admin: 02/01/17 09:03 Dose: 325 mg Sodium Chloride (Normal Saline) 1,000 mls @ 75 mls/hr IV ASDIRECTED JOSI Last Admin: 02/01/17 09:07 Dose: 75 mls/hr Ondansetron HCl (Zofran Odt) 4 mg PO Q6H PRN PRN Reason: nausea, able to take PO Oxycodone HCl (Oxycodone) 5 mg PO Q4H PRN PRN Reason: Pain (moderate 4-6) Temazepam (Restoril) 15 mg PO BEDTIME PRN PRN Reason: Sleep Discontinued Medications Diphenhydramine HCl (Benadryl) 50 mg PO Q4H ONE Stop: 01/31/17 01:29 Last Admin: 01/31/17 06:33 Dose: Not Given Diphenhydramine HCl (Benadryl) 50 mg PO ONETIME ONE Stop: 01/31/17 01:46 Last Admin: 01/31/17 03:35 Dose: 50 mg Furosemide (Lasix) 20 mg IVPUSH ONETIME ONE Stop: 01/31/17 06:40 Last Admin: 01/31/17 07:38 Dose: 20 mg Furosemide (Lasix) 20 mg IV ASDIRECTED PRN PRN Reason: IN BETWEEN EACH UNIT OF BLOOD Last Admin: 01/31/17 20:42 Dose: 20 mg Sodium Chloride (Normal Saline) 1,000 mls @ 999 mls/hr IV .Bolus ONE Stop: 01/31/17 00:00 Last Admin: 01/30/17 23:08 Dose: 999 mls/hr Tranexamic Acid 1,000 mg/ (Sodium Chloride) 110 mls @ 600 mls/hr IV ONETIME ONE Stop: 01/31/17 02:56 Last Admin: 01/31/17 03:18 Dose: 600 mls/hr Morphine Sulfate (Morphine) 2 mg IVPUSH Q2H PRN PRN Reason: Pain (severe 7-10) Stop: 02/01/17 00:55 Potassium Chloride (Klor-Con M20) 40 meq PO ONETIME ONE Stop: 02/01/17 10:22 *Q Meaningful Use (DIS) - VTE *Q VTE Criteria *Q: VTE Pharmacological Contraindications *Q: Patient has Severe Anemia - Stroke *Q Stroke Criteria *Q: - AMI *Q AMI Criteria *Q:
== END 2017-02-01 12:40 | disposition home or self-care (01) ==
LOC: MW.ED 22:56 → MW.MS 01-31 00:31
PROVIDERS: ADMIT Internal Medicine; ATTEND Internal Medicine
DX: D64.9 Anemia, unspecified (principal); D50.9 Iron deficiency anemia, unspecified; E28.2 Polycystic ovarian syndrome; R79.1 Abnormal coagulation profile; Z79.899 Other long term (current) drug therapy; Z87.42 Personal history of other diseases of the female genital tract
CPT/HCPCS: 36415; 76856; 80053; 82728; 82962; 83540; 83550; 84703; 85014; 85018; 85025; 85245; 85384; 85610; 85730; 86850; 86900; 86901; 86920; 86921; 86922; 96360; 96361; 97161; 99284; A9270; J7030; J7040; P9016; 36430; 96374; 99282; G0378

== ENCOUNTER 2017-02-02 07:27 | Emergency (ER) | payer MEDICAID ==
--- NOTE | 2017-02-02 07:37 | EDM.PDOC ---
ED HPI GENERAL MEDICAL PROBLEM - General Chief Complaint: Abdominal Pain Stated Complaint: ABDOMINAL PAIN Time Seen by Provider: 02/02/17 07:40 - History of Present Illness INITIAL COMMENTS - FREE TEXT/NARRATIVE: HISTORY AND PHYSICAL: History of present illness: The patient is a 21-year-old female who was just discharged from our hospital yesterday late morning after being admitted for a low hemoglobin and heavy vaginal bleeding. The patient presented on January 30 with complaints of heavy vaginal bleeding that started from December and was continuous and had a hemoglobin of 6.6 on arrival in the ER. She had had a miscarriage with D&C back in June of this year. On that admission she received 4 units of packed red blood cells and her hemoglobin kike to 14.4. She ultrasound which was consistent with PCO S and she had a gynecology consult which I have reviewed. She was started on oral control. She was also given IV transexamic acid. She had labs performed including coags which I reviewed. She also had von Willebrand factor ordered but the results are not available. According to that admission the patient had initially presented with lightheadedness nausea and some abdominal cramping but not severe abdominal pain. She described her cramping at that time like her menstrual cycle. When she was discharged she was stable and had no abdominal cramping. She presented to the ER this morning complaining of diffuse bilateral pelvic pain and cramping which started at 6 AM. Patient said she did not have this last night and she saying that she still having vaginal bleeding for total of 3 pads since she was discharged. She says that she did not start her oral contraceptive pills that were prescribed to her. Patient also tells me she did not take any [id number] medications for cramping and pain. She feels nauseated. She says the lower abdominal/pelvic pain does not localize right or left she has no dysuria diarrhea or upper respiratory symptoms. She has not had any fevers or chills. Review of systems: As per history of present illness and below otherwise all systems reviewed and negative. Past medical history: As per history of present illness and as reviewed below otherwise noncontributory. Surgical history: As per history of present illness and as reviewed below otherwise noncontributory. Social history: No reported history of drug or alcohol abuse. Family history: As per history of present illness and as reviewed below otherwise noncontributory. Physical exam: Gen.: Well-developed well-nourished thin female who is tearful in the room and very slow to move but somewhat exaggerated with her exam. Vital signs were noted by me HEENT: Atraumatic, normocephalic, pupils reactive, negative for conjunctival pallor or scleral icterus, mucous membranes moist, throat clear, neck supple, nontender, trachea midline. Lungs: Clear to auscultation, breath sounds equal bilaterally, chest nontender. Heart: S1S2, regular rate and rhythm no overt murmurs Abdomen: Soft, nondistended, some mild tenderness on deep palpation in the suprapubic area and lower quadrants but does not localize right or left, there is no upper abdominal pain or periumbilical tenderness on palpation, there is no rebound or guarding. Bowel sounds are hypoactive. Negative for masses or hepatosplenomegaly. Negative for costovertebral tenderness. Pelvis: Stable nontender. Genitourinary: External genitalia are within normal limits, there is some thick dark blood in the vault but the cervix is nulliparous appearing and closed with merely a trickle per os of blood. The uterus is small bulky and tender with palpation but there is no adnexal tenderness or masses appreciated. Rectal: Deferred. Extremities: Atraumatic, negative for cords or calf pain. Neurovascular unremarkable. Neuro: Awake, alert, oriented. Cranial nerves II through XII unremarkable. Cerebellum unremarkable. Motor and sensory unremarkable throughout. Exam nonfocal. Diagnostics: CBC CMP hCG UA CT scan of the abdomen and pelvis Therapeutics: IV fluids Zofran Toradol 0907: Case was discussed with Dr. Berry; she says at the patient merits or if the pain does not improve to perform a CT scan of the abdomen and pelvis and that she can be discharged home on nonsteroidals or leg pain medication as indicated by her clinical condition to me. I will go ahead and order the CT scan although it seems very pelvic and gynecologic in etiology without localization. Patient says pain has improved with the Toradol but is not completely gone CT scan results do not correlate with the patient's clinical findings and she has no right upper quadrant tenderness. I discussed all testing results with the patient and will plan on discharge home. She has follow-up scheduled with gynecology. Impression: Pelvic pain with metromenorrhagia Stable, constipation Definitive disposition and diagnosis as appropriate pending reevaluation and review of above. lower abdominal Pain Score (Numeric/FACES): 10 - Related Data Allergies Allergy/AdvReac Type Severity Reaction Status Date / Time No Known Allergies Allergy Verified 02/02/17 07:34 Home Meds: Home Meds Ferrous Sulfate 325 mg PO TIDMEALS 30 Days #90 tablet 02/01/17 [Rx] Norgestimate-Ethinyl Estradiol [Ortho Tri-Cyclen 28 Tablet] 1 each PO DAILY 30 Days #30 tablet 02/01/17 [Rx] Past Medical History - Past Health History Medical/Surgical History: Denies Medical/Surgical History Gastrointestinal History: Reports: Other (See Below) Other Gastrointestinal History: occasional heartburn Genitourinary History: Reports: None PROFESSOR OF ENVIRONMENTAL ENGINEERING History: Reports: Other (See Below) Other OB/BYN History: missed AB June 2016 Musculoskeletal History: Reports: Other (See Below) Other Musculoskeletal History: scoliosis - Infectious Disease History Infectious Disease History: Reports: None - Past Surgical History Head Surgeries/Procedures: Reports: None Female Surgical History: Reports: D&C Social & Family History - Family History Family Medical History: Noncontributory - Tobacco Use Smoking Status *Q: Never Smoker - Caffeine Use Caffeine Use: Reports: Coffee, Soda - Recreational Drug Use Recreational Drug Use: No ED ROS GENERAL - Review of Systems Review Of Systems: ROS reveals no pertinent complaints other than HPI. ED EXAM, GENERAL - Physical Exam Exam: See Below (See dictation) Course - Vital Signs Last Recorded V/S: Last Vital Signs Temp 36.9 C 02/02/17 07:31 Pulse 95 02/02/17 07:31 Resp 20 02/02/17 07:31 BP 104/62 02/02/17 07:31 Pulse Ox 98 02/02/17 07:31 Orthostatic Blood Pressure [ 101/69 Standing] Orthostatic Blood Pressure [ 97/62 Sitting] Orthostatic Blood Pressure [ 100/66 Supine] - Orders/Labs/Meds Orders: Active Orders 24 hr Category Date Time Status Orthostatic Vital Signs [RC] ASDIRECTED Care 02/02/17 07:49 Active Abdomen Pelvis w Cont [CT] Stat Exams 02/02/17 09:15 Taken Sodium Chloride 0.9% [Saline Flush] Med 02/02/17 07:45 Active 10 ml FLUSH ASDIRECTED PRN Sodium Chloride 0.9% [Saline Flush] Med 02/02/17 07:45 Active 2.5 ml FLUSH ASDIRECTED PRN Saline Lock Insert [OM.PC] Stat Oth 02/02/17 07:45 Ordered Medication Orders Sodium Chloride (Saline Flush) 10 ml FLUSH ASDIRECTED PRN PRN Reason: Keep Vein Open Sodium Chloride (Saline Flush) 2.5 ml FLUSH ASDIRECTED PRN PRN Reason: Keep Vein Open Labs: Laboratory Tests 02/02/17 02/02/17 02/02/17 Range/Units 08:00 08:00 08:00 WBC 6.84 (4.0-11.0) K/uL RBC 5.12 (4.30-5.90) M/uL Hgb 14.6 (12.0-16.0) g/dL Hct 42.4 (36.0-46.0) % MCV 82.8 (80.0-98.0) fL MCH 28.5 (27.0-32.0) pg MCHC 34.4 (31.0-37.0) g/dL RDW Std Deviation 41.8 (28.0-62.0) fl RDW Coeff of Dionne 14 (11.0-15.0) % Plt Count 267 (150-400) K/uL MPV 9.80 (7.40-12.00) fL Neut % (Auto) 54.4 (48.0-80.0) % Lymph % (Auto) 31.0 (16.0-40.0) % [place] % (Auto) 13.0 (0.0-15.0) % Eos % (Auto) 1.0 (0.0-7.0) % Baso % (Auto) 0.6 (0.0-1.5) % Neut # (Auto) 3.7 (1.4-5.7) K/uL Lymph # (Auto) 2.1 (0.6-2.4) K/uL [place] # (Auto) 0.9 H (0.0-0.8) K/uL Eos # (Auto) 0.1 (0.0-0.7) K/uL Baso # (Auto) 0.0 (0.0-0.1) K/uL Nucleated RBC % 0.0 /100WBC Nucleated RBCs # 0 K/uL Sodium 140 (136-146) mmol/L Potassium 3.9 (3.5-5.1) mmol/L Chloride 107 (98-110) mmol/L Carbon Dioxide 28 (21-31) mmol/L BUN 7 (6.0-23.0) mg/dL Creatinine 0.8 (0.6-1.5) mg/dL Est Cr Clr Drug Dosing 92.79 mL/min Estimated GFR (MDRD) > 60.0 ml/min Glucose 88 (60-110) mg/dL Calcium 9.2 (8.8-10.8) mg/dL Total Bilirubin 1.3 (0.1-1.5) mg/dL AST 14 (5-40) IU/L ALT 13 (8-54) IU/L Alkaline Phosphatase 35 L (40-150) Total Protein 6.8 (6.0-8.0) g/dL Albumin 4.1 (3.5-5.0) g/dL Globulin 2.7 (2.0-3.5) g/dL Albumin/Globulin Ratio 1.5 (1.3-2.8) HCG, Qual NEGATIVE (NEG) Urine Color Urine Appearance Urine pH (5.0-8.0) Ur Specific [place] (1.001-1.035) Urine Protein (NEGATIVE) mg/dL Urine Glucose (UA) (NEGATIVE) mg/dL Urine Ketones (NEGATIVE) mg/dL Urine Occult Blood (NEGATIVE) Urine Nitrite (NEGATIVE) Urine Bilirubin (NEGATIVE) Urine Urobilinogen (<2.0) EU/dL Ur Leukocyte Esterase (NEGATIVE) Urine RBC (0-2/HPF) Urine WBC (0-5/HPF) Ur Epithelial Cells (NONE-FEW) Urine Bacteria (NEGATIVE) Urine Mucus (NONE-MOD) 02/02/17 Range/Units 09:29 WBC (4.0-11.0) K/uL RBC (4.30-5.90) M/uL Hgb (12.0-16.0) g/dL Hct (36.0-46.0) % MCV (80.0-98.0) fL MCH (27.0-32.0) pg MCHC (31.0-37.0) g/dL RDW Std Deviation (28.0-62.0) fl RDW Coeff of Dionne (11.0-15.0) % Plt Count (150-400) K/uL MPV (7.40-12.00) fL Neut % (Auto) (48.0-80.0) % Lymph % (Auto) (16.0-40.0) % [place] % (Auto) (0.0-15.0) % Eos % (Auto) (0.0-7.0) % Baso % (Auto) (0.0-1.5) % Neut # (Auto) (1.4-5.7) K/uL Lymph # (Auto) (0.6-2.4) K/uL [place] # (Auto) (0.0-0.8) K/uL Eos # (Auto) (0.0-0.7) K/uL Baso # (Auto) (0.0-0.1) K/uL Nucleated RBC % /100WBC Nucleated RBCs # K/uL Sodium (136-146) mmol/L Potassium (3.5-5.1) mmol/L Chloride (98-110) mmol/L Carbon Dioxide (21-31) mmol/L BUN (6.0-23.0) mg/dL Creatinine (0.6-1.5) mg/dL Est Cr Clr Drug Dosing mL/min Estimated GFR (MDRD) ml/min Glucose (60-110) mg/dL Calcium (8.8-10.8) mg/dL Total Bilirubin (0.1-1.5) mg/dL AST (5-40) IU/L ALT (8-54) IU/L Alkaline Phosphatase (40-150) Total Protein (6.0-8.0) g/dL Albumin (3.5-5.0) g/dL Globulin (2.0-3.5) g/dL Albumin/Globulin Ratio (1.3-2.8) HCG, Qual (NEG) Urine Color YELLOW Urine Appearance CLEAR Urine pH 5.5 (5.0-8.0) Ur Specific [place] >= 1.030 (1.001-1.035) Urine Protein NEGATIVE (NEGATIVE) mg/dL Urine Glucose (UA) NEGATIVE (NEGATIVE) mg/dL Urine Ketones NEGATIVE (NEGATIVE) mg/dL Urine Occult Blood LARGE H (NEGATIVE) Urine Nitrite NEGATIVE (NEGATIVE) Urine Bilirubin NEGATIVE (NEGATIVE) Urine Urobilinogen 0.2 (<2.0) EU/dL Ur Leukocyte Esterase NEGATIVE (NEGATIVE) Urine RBC 65-70 (0-2/HPF) Urine WBC 3-5 (0-5/HPF) Ur Epithelial Cells RARE (NONE-FEW) Urine Bacteria FEW (NEGATIVE) Urine Mucus HEAVY (NONE-MOD) Meds: Medications Generic Name Dose Route Start Last Admin Trade Name Freq PRN Reason Stop Dose Admin Sodium Chloride 10 ml 02/02/17 07:45 Saline Flush FLUSH ASDIRECTED PRN Keep Vein Open Sodium Chloride 2.5 ml 02/02/17 07:45 Saline Flush FLUSH ASDIRECTED PRN Keep Vein Open Discontinued Medications Generic Name Dose Route Start Last Admin Trade Name Freq PRN Reason Stop Dose Admin Sodium Chloride 1,000 mls @ 999 mls/hr 02/02/17 07:45 02/02/17 08:06 Normal Saline IV 02/02/17 08:45 999 mls/hr STAT ONE Administration Iopamidol 66 ml 02/02/17 09:28 02/02/17 09:33 Isovue Multipack-370 (76%) IVPUSH 02/02/17 09:29 66 ml ONETIME STA Administration Ketorolac Tromethamine 30 mg 02/02/17 07:45 02/02/17 08:05 Toradol IVPUSH 02/02/17 07:46 30 mg ONETIME ONE Administration Ondansetron HCl 4 mg 02/02/17 07:45 02/02/17 08:05 Zofran IVPUSH 02/02/17 07:46 4 mg ONETIME ONE Administration Departure - Departure Time of Disposition: 10:28 Disposition: Home, Self-Care 01 Condition: Good Clinical Impression: Pelvic pain, Metrorrhagia Constipation Qualifiers: Constipation type: unspecified constipation type Qualified Code(s): K59.00 - Constipation, unspecified - Discharge Information Referrals: PCP,None [Primary Care Provider] - Forms: ED Department Discharge Additional Instructions: The following information is given to patients seen in the emergency department who are being discharged to home. This information is to outline your options for follow-up care. We provide all patients seen in our emergency department with a follow-up referral. The need for follow-up, as well as the timing and circumstances, are variable depending upon the specifics of your emergency department visit. If you don't have a primary care physician on staff, we will provide you with a referral. We always advise you to contact your personal physician following an emergency department visit to inform them of the circumstance of the visit and for follow-up with them and/or the need for any referrals to a consulting specialist. The emergency department will also refer you to a specialist when appropriate. This referral assures that you have the opportunity for followup care with a specialist. All of these measure are taken in an effort to provide you with optimal care, which includes your followup. Under all circumstances we always encourage you to contact your private physician who remains a resource for coordinating your care. When calling for followup care, please make the office aware that this follow-up is from your recent emergency room visit. If for any reason you are refused follow-up, please contact the [facility] emergency department at and ask to speak to the emergency department charge nurse. [facility] [address] [address] Please start your control pills that you have been prescribed by the bonded structures repairer and also fill and use pain medications as prescribed. Please keep all appointments that you have scheduled for follow-up and return to ER as needed and as discussed. Please take an [id number] stool softener and try to increase fiber in your diet as you have some component of constipation on your CAT scan - My Orders Last 24 Hours: My Active Orders 02/02/17 07:45 Sodium Chloride 0.9% [Saline Flush] 10 ml FLUSH ASDIRECTED PRN Sodium Chloride 0.9% [Saline Flush] 2.5 ml FLUSH ASDIRECTED PRN Saline Lock Insert [OM.PC] Stat 02/02/17 07:49 Orthostatic Vital Signs [RC] ASDIRECTED 02/02/17 09:15 Abdomen Pelvis w Cont [CT] Stat - Assessment/Plan Last 24 Hours: My Active Orders 02/02/17 07:45 Sodium Chloride 0.9% [Saline Flush] 10 ml FLUSH ASDIRECTED PRN Sodium Chloride 0.9% [Saline Flush] 2.5 ml FLUSH ASDIRECTED PRN Saline Lock Insert [OM.PC] Stat 02/02/17 07:49 Orthostatic Vital Signs [RC] ASDIRECTED 02/02/17 09:15 Abdomen Pelvis w Cont [CT] Stat
[2017-02-02] MEDS ORDERED: Ketorolac 30 MG/ML SDV IVPUSH ONE (07:45)
[2017-02-02] MEDS ORDERED: Sodium Chloride 0.9% 2.5 ML Syringe FLUSH PRN (07:45)
[2017-02-02] MEDS ORDERED: Sodium Chloride 0.9% 1,000 ML IV ONE (07:45)
[2017-02-02] MEDS ORDERED: Ondansetron 4 MG/2 ML SDV IVPUSH ONE (07:45)
[2017-02-02] MEDS ORDERED: Sodium Chloride 0.9% 10 ML Syringe FLUSH PRN (07:45)
[2017-02-02 08:24] LABS: CHLORIDE,CL 107 mmol/L (98-110); SODIUM,NA 140 mmol/L (136-146)
[2017-02-02] MEDS ORDERED: Iopamidol 755 MG/ML 500 ML Multipack Bottle IVPUSH STA (09:28)
[2017-02-02 10:55] VITALS: BP 100/70
--- NOTE | 2017-02-04 11:36 | CT ---
EXAM DATE: 02/02/17 PATIENT'S AGE: 21 Patient: LUCILLE LEBLANC Facility: [place], [place] : 1995 Study: CT Abdomen/Pelvis w cont [id number] 9:47:08 AM Ordering Physician: Keyur Jones Final Report: Pain vaginal bleeding Technique contrast-enhanced CT abdomen pelvis with coronal sagittal re- formatted images obtained. 66 mL [id number]. Comparison: No comparison studies are available. Findings: Heart size is normal. There is no pericardial effusion. There is no pleural effusion. The lung bases appear clear. Periportal edema which could be related to hydration status. The spleen pancreas adrenal glands are unremarkable. Possible minimal fluid around the gallbladder versus wall thickening. Bilateral nonobstructing renal calculi. No hydronephrosis. Symmetric enhancement of both kidneys. Abundant stool in the colon. Normal appendix. Bowel is otherwise unremarkable. Heterogeneity of the uterus. Impression: 1. No acute findings in abdomen and pelvis. 2. Mild periportal edema which was may related to hydration status. Possible minimal amount of fluid around the gallbladder or gallbladder wall thickening. This can be correlated to clinical exam . If there is concern for cholecystitis right upper quadrant ultrasound could be performed. Please note that all CT scans at this facility use dose modulation, iterative reconstruction, and/or weight-based dosing when appropriate to reduce radiation dose to as low as reasonably achievable. Dictated by Reny Carr MD @ Feb 02 2017 9:54AM (Electronic Signature) Report S[facility] Proxy. [facility]
== END 2017-02-02 10:45 | disposition home or self-care (01) ==
LOC: MW.ED 07:27
DX: N92.1 Excessive and frequent menstruation with irregular cycle (principal); K59.00 Constipation, unspecified
CPT/HCPCS: 36415; 74177; 80053; 81001; 84703; 85025; 96361; 96374; 96375; 99284; J1885; J2405; J7040; Q9967; 99282

== ENCOUNTER 2017-03-20 19:32 | Emergency (ER) | payer MEDICAID ==
[2017-03-20] MEDS ORDERED: Sodium Chloride 0.9% 1,000 ML IV ONE (20:31)
[2017-03-20 21:04] LABS: CHLORIDE,CL 105 mmol/L (98-110); SODIUM,NA 138 mmol/L (136-146)
--- NOTE | 2017-03-20 21:10 | EDM.PDOC ---
ED HPI GENERAL MEDICAL PROBLEM - General Chief Complaint: Abdominal Pain Stated Complaint: ABDOMINAL PAIN/NAUSEA/VOMITING Time Seen by Provider: 03/20/17 20:40 Source of Information: Reports: Patient History Limitations: Reports: No Limitations - History of Present Illness INITIAL COMMENTS - FREE TEXT/NARRATIVE: History of present illness: 21-year-old female comes in complaining of right upper quadrant pain. Patient indicates that the pain has become so severe that it is affecting her ability to perform her ADLs and has made her nauseous and she has vomited twice today. Review of systems: As per history of present illness and below otherwise all systems reviewed and negative. Past medical history: As per history of present illness and as reviewed below otherwise noncontributory. Surgical history: As per history of present illness and as reviewed below otherwise noncontributory. Social history: No reported history of drug or alcohol abuse. Family history: As per history of present illness and as reviewed below otherwise noncontributory. Physical exam: HEENT: Atraumatic, normocephalic, pupils reactive, negative for conjunctival pallor or scleral icterus, mucous membranes moist, throat clear, neck supple, nontender, trachea midline. Lungs: Clear to auscultation, breath sounds equal bilaterally, chest nontender. Heart: S1S2, regular, negative for clicks, rubs, or JVD. Abdomen: Soft, diffuse upper quadrant tenderness more notably over the right with radiation to left. Negative for masses or hepatosplenomegaly. Negative for costovertebral tenderness. Pelvis: Stable nontender. Genitourinary: Deferred. Rectal: Deferred. Extremities: Atraumatic, negative for cords or calf pain. Neurovascular unremarkable. Neuro: Awake, alert, oriented. Cranial nerves II through XII unremarkable. Cerebellum unremarkable. Motor and sensory unremarkable throughout. Exam nonfocal. CT shows some amount of fluid-filled loops of bowel potential slowing Diagnostics: [CBC, CMP, urine hCG, UA, CT of abdomen] Therapeutics: [IV fluid] Impression: [#1 gastroenteritis] Plan: [Reglan] Definitive disposition and diagnosis as appropriate pending reevaluation and review of above. Abdominal Pain Score (Numeric/FACES): 8 - Related Data Allergies Allergy/AdvReac Type Severity Reaction Status Date / Time No Known Allergies Allergy Verified 03/20/17 19:42 Home Meds: Home Meds Ferrous Sulfate 325 mg PO TIDMEALS 30 Days #90 tablet 02/01/17 [Rx] Norgestimate-Ethinyl Estradiol [Ortho Tri-Cyclen 28 Tablet] 1 each PO DAILY 30 Days #30 tablet 02/01/17 [Rx] Metoclopramide [Reglan] 10 mg PO Q6H #30 tablet 03/20/17 [Rx] Past Medical History - Past Health History Medical/Surgical History: Denies Medical/Surgical History Gastrointestinal History: Reports: Other (See Below) Other Gastrointestinal History: occasional heartburn Genitourinary History: Reports: None 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 (See Below) Other OB/BYN History: missed AB June 2016 Musculoskeletal History: Reports: Other (See Below) Other Musculoskeletal History: scoliosis Hematologic History: Reports: Anemia - Infectious Disease History Infectious Disease History: Reports: None - Past Surgical History Head Surgeries/Procedures: Reports: None Female Surgical History: Reports: D&C Social & Family History - Family History Family Medical History: Noncontributory - Tobacco Use Smoking Status *Q: Never Smoker Second Hand Smoke Exposure: No - Caffeine Use Caffeine Use: Reports: Soda - Recreational Drug Use Recreational Drug Use: No ED ROS GENERAL - Review of Systems Review Of Systems: See Below (See history of present illness) ED EXAM, GENERAL - Physical Exam Exam: See Below (See history of present illness) Course - Vital Signs Last Recorded V/S: Last Vital Signs Temp 36.6 C 03/20/17 19:42 Pulse 94 03/20/17 19:42 Resp 18 03/20/17 19:42 BP 104/65 03/20/17 19:42 Pulse Ox 100 03/20/17 19:42 - Orders/Labs/Meds Orders: Active Orders 24 hr Category Date Time Status Abdomen Pelvis w Cont [CT] Stat Exams 03/20/17 21:08 Taken Labs: Laboratory Tests 03/20/17 03/20/17 03/20/17 Range/Units 19:44 19:44 20:34 WBC 8.04 (4.0-11.0) K/uL RBC 5.11 (4.30-5.90) M/uL Hgb 14.5 (12.0-16.0) g/dL Hct 42.6 (36.0-46.0) % MCV 83.4 (80.0-98.0) fL MCH 28.4 (27.0-32.0) pg MCHC 34.0 (31.0-37.0) g/dL RDW Std Deviation 43.0 (28.0-62.0) fl RDW Coeff of Dionne 14 (11.0-15.0) % Plt Count 192 (150-400) K/uL MPV 10.50 (7.40-12.00) fL Neut % (Auto) 82.1 H (48.0-80.0) % Lymph % (Auto) 9.8 L (16.0-40.0) % Putnam % (Auto) 7.8 (0.0-15.0) % Eos % (Auto) 0.2 (0.0-7.0) % Baso % (Auto) 0.1 (0.0-1.5) % Neut # (Auto) 6.6 H (1.4-5.7) K/uL Lymph # (Auto) 0.8 (0.6-2.4) K/uL Putnam # (Auto) 0.6 (0.0-0.8) K/uL Eos # (Auto) 0.0 (0.0-0.7) K/uL Baso # (Auto) 0.0 (0.0-0.1) K/uL Nucleated RBC % 0.0 /100WBC Nucleated RBCs # 0 K/uL Sodium (136-146) mmol/L Potassium (3.5-5.1) mmol/L Chloride (98-110) mmol/L Carbon Dioxide (21-31) mmol/L BUN (6.0-23.0) mg/dL Creatinine (0.6-1.5) mg/dL Est Cr Clr Drug Dosing Estimated GFR (MDRD) ml/min Glucose (60-110) mg/dL Calcium (8.8-10.8) mg/dL Total Bilirubin (0.1-1.5) mg/dL AST (5-40) IU/L ALT (8-54) IU/L Alkaline Phosphatase (40-150) Total Protein (6.0-8.0) g/dL Albumin (3.5-5.0) g/dL Globulin (2.0-3.5) g/dL Albumin/Globulin Ratio (1.3-2.8) Urine Color YELLOW Urine Appearance SLT CLOUDY Urine pH 5.5 (5.0-8.0) Ur Specific Ohlman >= 1.030 (1.001-1.035) Urine Protein NEGATIVE (NEGATIVE) mg/dL Urine Glucose (UA) NEGATIVE (NEGATIVE) mg/dL Urine Ketones 15 H (NEGATIVE) mg/dL Urine Occult Blood TRACE-INTACT (NEGATIVE) Urine Nitrite NEGATIVE (NEGATIVE) Urine Bilirubin SMALL H (NEGATIVE) Urine Ictotest NEGATIVE Urine Urobilinogen 1.0 (<2.0) EU/dL Ur Leukocyte Esterase NEGATIVE (NEGATIVE) Urine RBC 0-2 (0-2/HPF) Urine WBC 1-3 (0-5/HPF) Ur Epithelial Cells MODERATE (NONE-FEW) Urine Bacteria 1+ H (NEGATIVE) Urine Mucus MANY (NONE-MOD) Urine HCG, Qual NEGATIVE (NEGATIVE) 03/20/17 Range/Units 20:34 WBC (4.0-11.0) K/uL RBC (4.30-5.90) M/uL Hgb (12.0-16.0) g/dL Hct (36.0-46.0) % MCV (80.0-98.0) fL MCH (27.0-32.0) pg MCHC (31.0-37.0) g/dL RDW Std Deviation (28.0-62.0) fl RDW Coeff of Dionne (11.0-15.0) % Plt Count (150-400) K/uL MPV (7.40-12.00) fL Neut % (Auto) (48.0-80.0) % Lymph % (Auto) (16.0-40.0) % Putnam % (Auto) (0.0-15.0) % Eos % (Auto) (0.0-7.0) % Baso % (Auto) (0.0-1.5) % Neut # (Auto) (1.4-5.7) K/uL Lymph # (Auto) (0.6-2.4) K/uL Putnam # (Auto) (0.0-0.8) K/uL Eos # (Auto) (0.0-0.7) K/uL Baso # (Auto) (0.0-0.1) K/uL Nucleated RBC % /100WBC Nucleated RBCs # K/uL Sodium 138 (136-146) mmol/L Potassium 4.6 (3.5-5.1) mmol/L Chloride 105 (98-110) mmol/L Carbon Dioxide 23 (21-31) mmol/L BUN 12 (6.0-23.0) mg/dL Creatinine 0.8 (0.6-1.5) mg/dL Est Cr Clr Drug Dosing TNP Estimated GFR (MDRD) > 60.0 ml/min Glucose 76 (60-110) mg/dL Calcium 9.5 (8.8-10.8) mg/dL Total Bilirubin 1.8 H (0.1-1.5) mg/dL AST 15 (5-40) IU/L ALT 11 (8-54) IU/L Alkaline Phosphatase 30 L (40-150) Total Protein 7.6 (6.0-8.0) g/dL Albumin 4.2 (3.5-5.0) g/dL Globulin 3.4 (2.0-3.5) g/dL Albumin/Globulin Ratio 1.2 L (1.3-2.8) Urine Color Urine Appearance Urine pH (5.0-8.0) Ur Specific Ohlman (1.001-1.035) Urine Protein (NEGATIVE) mg/dL Urine Glucose (UA) (NEGATIVE) mg/dL Urine Ketones (NEGATIVE) mg/dL Urine Occult Blood (NEGATIVE) Urine Nitrite (NEGATIVE) Urine Bilirubin (NEGATIVE) Urine Ictotest Urine Urobilinogen (<2.0) EU/dL Ur Leukocyte Esterase (NEGATIVE) Urine RBC (0-2/HPF) Urine WBC (0-5/HPF) Ur Epithelial Cells (NONE-FEW) Urine Bacteria (NEGATIVE) Urine Mucus (NONE-MOD) Urine HCG, Qual (NEGATIVE) Meds: Medications Discontinued Medications Generic Name Dose Route Start Last Admin Trade Name Freq PRN Reason Stop Dose Admin Sodium Chloride 1,000 mls @ 999 mls/hr 03/20/17 20:31 03/20/17 21:14 Normal Saline IV 03/20/17 21:31 999 mls/hr STAT ONE Administration Departure - Departure Time of Disposition: 22:25 Disposition: Home, Self-Care 01 Condition: Good Clinical Impression: Gastroenteritis - Discharge Information Instructions: Viral Gastroenteritis, Adult, [id number] Referrals: PCP,None [Primary Care Provider] - Forms: ED Department Discharge Additional Instructions: The following information is given to patients seen in the emergency department who are being discharged to home. This information is to outline your options for follow-up care. We provide all patients seen in our emergency department with a follow-up referral. The need for follow-up, as well as the timing and circumstances, are variable depending upon the specifics of your emergency department visit. If you don't have a primary care physician on staff, we will provide you with a referral. We always advise you to contact your personal physician following an emergency department visit to inform them of the circumstance of the visit and for follow-up with them and/or the need for any referrals to a consulting specialist. The emergency department will also refer you to a specialist when appropriate. This referral assures that you have the opportunity for follow-up care with a specialist. All of these measure are taken in an effort to provide you with optimal care, which includes your follow-up. Under all circumstances we always encourage you to contact your private physician who remains a resource for coordinating your care. When calling for follow-up care, please make the office aware that this follow-up is from your recent emergency room visit. If for any reason you are refused follow-up, please contact the [facility] Emergency Department at and asked to speak to the emergency department charge nurse. Take medication as directed Follow-up with primary care provider one to 2 days Return to ED as needed as discussed - My Orders Last 24 Hours: My Active Orders 03/20/17 21:08 Abdomen Pelvis w Cont [CT] Stat - Assessment/Plan Last 24 Hours: My Active Orders 03/20/17 21:08 Abdomen Pelvis w Cont [CT] Stat
[2017-03-20] MEDS ORDERED: Metoclopramide 10 MG/2 ML SDV IV ONE (22:23)
[2017-03-20 22:50] VITALS: BP 108/56
[2017-03-20] MEDS ORDERED: Iopamidol 755 MG/ML 500 ML Multipack Bottle IVPUSH STA (23:58)
--- NOTE | 2017-03-21 09:38 | CT ---
EXAM DATE: 03/20/17 PATIENT'S AGE: 21 Patient: LUCILLE LEBLANC Facility: [place], [place] Site . Site : 1995 Study: CT Abdomen/Pelvis [id number] 9:45:55 PM Ordering Physician: Doctor Juares Final Report: INDICATION: Abdominal pain TECHNIQUE: CT abdomen and pelvis acquired with IV contrast. COMPARISON: 02/02/2017. FINDINGS: Lower chest: Unremarkable. Liver: Unremarkable. Spleen: Unremarkable. Pancreas: Unremarkable. Gallbladder and bile ducts: Unremarkable. Adrenal glands: Unremarkable. Kidneys: No hydronephrosis. A subcentimeter left renal low-density lesion again seen, likely a small cyst. GI tract: Multiple fluid-filled small bowel segments which are not abnormally distended. Portions of a normal appendix seen without right lower quadrant inflammatory changes. No significant pericolonic changes. Vascular structures: Unremarkable. Lymph nodes: Unremarkable. Miscellaneous: Small free fluid in the cul-de-sac. No free air. Pelvic Organs: Unremarkable. Bones: Unremarkable for age. IMPRESSION: Multiple fluid-filled small bowel segments are nonspecific. Correlate for enteritis with associated ileus. No evidence of appendicitis or diverticulitis. Small pelvic free fluid which could be physiologic. Dictated by Byron Weiner MD @ 03/20/2017 10:05:23 PM Dictated by: Byron Weiner MD @ 03/20/2017 22:05:33 (Electronic Signature) Report Signed by Proxy. [facility]
== END 2017-03-20 22:50 | disposition home or self-care (01) ==
LOC: MW.ED 19:32
DX: K52.9 Noninfective gastroenteritis and colitis, unspecified (principal); Z79.899 Other long term (current) drug therapy
CPT/HCPCS: 36415; 74177; 80053; 81001; 81025; 85025; 96361; 96374; 99284; J2765; J7040; Q9967

== ENCOUNTER 2017-06-30 01:34 | Emergency (ER) | payer MEDICAID | END 2017-06-30 01:42 | disposition left against medical advice (07) | LOC: MW.ED 01:34 | DX: Z53.21 Procedure and treatment not carried out due to patient leaving prior to being seen by health care provider (principal) ==

== ENCOUNTER 2017-07-21 19:16 | Emergency (ER) | payer MEDICAID ==
[2017-07-21] MEDS ORDERED: Ondansetron 4 MG Tab.DIS PO ONE (21:36)
--- NOTE | 2017-07-21 21:38 | EDM.PDOC ---
ED HPI GENERAL MEDICAL PROBLEM - General Chief Complaint: Neuro Symptoms/Deficits Stated Complaint: MEDICAL CLEARANCE Time Seen by Provider: 07/21/17 21:34 - History of Present Illness INITIAL COMMENTS - FREE TEXT/NARRATIVE: HISTORY AND PHYSICAL: History of present illness: Patient 22-year-old female presents impulsive on forced him for medical clearance she reported vomiting earlier today seems to resolve on arrival she denies any chance of she denies trauma fever chills chest pain shortness of breath. Review of systems: As per history of present illness and below otherwise all systems reviewed and negative. Past medical history: As per history of present illness and as reviewed below otherwise noncontributory. Surgical history: As per history of present illness and as reviewed below otherwise noncontributory. Social history: No reported history of drug or alcohol abuse. Family history: As per history of present illness and as reviewed below otherwise noncontributory. Physical exam: HEENT: Atraumatic, normocephalic, pupils reactive, negative for conjunctival pallor or scleral icterus, mucous membranes moist, throat clear, neck supple, nontender, trachea midline. Lungs: Clear to auscultation, breath sounds equal bilaterally, chest nontender. Heart: S1S2, regular, negative for clicks, rubs, or JVD. Abdomen: Soft, nondistended, nontender. Negative for masses or hepatosplenomegaly. Negative for costovertebral tenderness. Pelvis: Stable nontender. Genitourinary: Deferred. Rectal: Deferred. Extremities: Atraumatic, negative for cords or calf pain. Neurovascular unremarkable. Neuro: Awake, alert, oriented. Cranial nerves II through XII unremarkable. Cerebellum unremarkable. Motor and sensory unremarkable throughout. Exam nonfocal. Diagnostics: None Therapeutics: Zofran 4 mg ODT Impression: #1 history of vomiting #2 medically clear for incarceration Definitive disposition and diagnosis as appropriate pending reevaluation and review of above. 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 (See Below) Other OB/BYN History: missed AB June 2016 Musculoskeletal History: Reports: Other (See Below) Other Musculoskeletal History: scoliosis Hematologic History: Reports: Anemia - Infectious Disease History Infectious Disease History: Reports: None - Past Surgical History Head Surgeries/Procedures: Reports: None Female Surgical History: Reports: D&C Social & Family History - Family History Family Medical History: Noncontributory - Tobacco Use Smoking Status *Q: Never Smoker Second Hand Smoke Exposure: No - Caffeine Use Caffeine Use: Reports: None - Recreational Drug Use Recreational Drug Use: Yes Drug Use in Last 12 Months: Yes Recreational Drug Type: Reports: Marijuana/Hashish Recreational Drug Use Frequency: Not Used In Over 2 Months ED ROS GENERAL - Review of Systems Review Of Systems: ROS reveals no pertinent complaints other than HPI. ED EXAM, GENERAL - Physical Exam Exam: See Below (See dictation) Course - Vital Signs Last Recorded V/S: Last Vital Signs Temp 35.8 C 07/21/17 20:49 Pulse 93 07/21/17 20:49 Resp 12 07/21/17 20:49 BP 117/67 07/21/17 20:49 Pulse Ox 97 07/21/17 20:49 - Orders/Labs/Meds Orders: Active Orders 24 hr Category Date Time Status Ondansetron [Zofran ODT] Med 07/21/17 21:36 Once 4 mg PO ONETIME ONE Medication Orders Ondansetron HCl (Zofran Odt) 4 mg PO ONETIME ONE Stop: 07/21/17 21:37 Meds: Medications Generic Name Dose Route Start Last Admin Trade Name Freq PRN Reason Stop Dose Admin Ondansetron HCl 4 mg 07/21/17 21:36 Zofran Odt PO 07/21/17 21:37 ONETIME ONE Departure - Departure Time of Disposition: 21:37 Disposition: Home, Self-Care 01 Condition: Good Clinical Impression: History of vomiting, Medical clearance for incarceration - Discharge Information Referrals: PCP,None [Primary Care Provider] - Additional Instructions: The following information is given to patients seen in the emergency department who are being discharged to home. This information is to outline your options for follow-up care. We provide all patients seen in our emergency department with a follow-up referral. The need for follow-up, as well as the timing and circumstances, are variable depending upon the specifics of your emergency department visit. If you don't have a primary care physician on staff, we will provide you with a referral. We always advise you to contact your personal physician following an emergency department visit to inform them of the circumstance of the visit and for follow-up with them and/or the need for any referrals to a consulting specialist. The emergency department will also refer you to a specialist when appropriate. This referral assures that you have the opportunity for followup care with a specialist. All of these measure are taken in an effort to provide you with optimal care, which includes your followup. Under all circumstances we always encourage you to contact your private physician who remains a resource for coordinating your care. When calling for followup care, please make the office aware that this follow-up is from your recent emergency room visit. If for any reason you are refused follow-up, please contact the [facility] emergency department at and asked to speak to the emergency department charge nurse. Clear liquids 12 hours follow-up medical doctor as needed as discussed and return as needed as discussed - My Orders Last 24 Hours: My Active Orders 07/21/17 21:36 Ondansetron [Zofran ODT] 4 mg PO ONETIME ONE - Assessment/Plan Last 24 Hours: My Active Orders 07/21/17 21:36 Ondansetron [Zofran ODT] 4 mg PO ONETIME ONE
[2017-07-22 04:33] VITALS: BP 111/74
== END 2017-07-21 22:21 | disposition home or self-care (01) ==
LOC: MW.ED 19:16
DX: Z02.89 Encounter for other administrative examinations (principal)
CPT/HCPCS: 99282; A9270

== ENCOUNTER 2017-09-29 10:25 | Emergency (ER) | payer MEDICAID ==
[2017-09-29] MEDS ORDERED: Sodium Chloride 0.9% 10 ML Syringe FLUSH PRN (10:46)
[2017-09-29] MEDS ORDERED: Ondansetron 4 MG/2 ML SDV IVPUSH ONE (10:46)
[2017-09-29] MEDS ORDERED: Sodium Chloride 0.9% 2.5 ML Syringe FLUSH PRN (10:46)
[2017-09-29] MEDS ORDERED: Sodium Chloride 0.9% 1,000 ML IV ONE (10:46)
[2017-09-29] MEDS ORDERED: Morphine 2 MG/ML Syringe IVPUSH ONE (10:47)
--- NOTE | 2017-09-29 10:50 | EDM.PDOC ---
ED HPI GENERAL MEDICAL PROBLEM - General Chief Complaint: Abdominal Pain Stated Complaint: ABDOMINAL PAIN Time Seen by Provider: 09/29/17 10:33 - History of Present Illness INITIAL COMMENTS - FREE TEXT/NARRATIVE: HISTORY AND PHYSICAL: History of present illness: The patient is a 22-year-old female who has a history of a miscarriage with D&C in the past and had an IUD in place which was removed in June and presents with right lower abdominal pain and missing her menstrual cycle By 2-3 weeks. The patient says she missed her menstrual cycle and did do a home test which was negative but she has had the right lower abdominal pain on-and- off for the last one week but it worsened today. She did not take any medications today but did take [id number] Tylenol through the week. She has not had issues with nausea and vomiting but is nauseated today. She's had no diarrhea or bowel movement issues and no urinary complaints of flank pain. She has no upper respiratory symptoms or fever. She has no vaginal bleeding. She describes the pain as dull and crampy and says it is the entire lower abdomen but more on the right side. Patient is not having any vaginal bleeding or discharge. Review of systems: As per history of present illness and below otherwise all systems reviewed and negative. Past medical history: As per history of present illness and as reviewed below otherwise noncontributory. Surgical history: As per history of present illness and as reviewed below otherwise noncontributory. Social history: No reported history of drug or alcohol abuse. Family history: As per history of present illness and as reviewed below otherwise noncontributory. Physical exam: General: Well-developed thin female who is nontoxic and vital signs have been reviewed by me. She moves easily in the ED without distress HEENT: Atraumatic, normocephalic, pupils reactive, negative for conjunctival pallor or scleral icterus, mucous membranes moist, throat clear, neck supple, nontender, trachea midline. Lungs: Clear to auscultation, breath sounds equal bilaterally, chest nontender. Heart: S1S2, regular rhythm no overt murmurs Abdomen: Soft, nondistended, bowel sounds are normoactive and there is diffuse lower abdominal tenderness more in the right lower quadrant without rebound or guarding. Negative for masses or hepatosplenomegaly. Negative for costovertebral tenderness. Pelvis: Stable nontender. Genitourinary: Deferred. Rectal: Deferred. Extremities: Atraumatic, negative for cords or calf pain. Neurovascular unremarkable. Neuro: Awake, alert, oriented. Cranial nerves II through XII unremarkable. Cerebellum unremarkable. Motor and sensory unremarkable throughout. Exam nonfocal. Diagnostics: CBC CMP UA quantitative hCG CT scan of the abdomen and pelvis Therapeutics: IV fluids Zofran and morphine Toradol Patient looks much improved in the ED and she is aware of all testing results including the negative CAT scan for right lower quadrant pain. Her LFTs are within normal limits and she has no right upper quadrant pain so the CT scan findings of some periportal edema are nondiagnostic. She is aware that she needs follow-up as her menstrual cycle is delayed and she may need further evaluation and care. Impression: Lower abdominal pain subacute stable etiology unclear Definitive disposition and diagnosis as appropriate pending reevaluation and review of above. Lower Ab Pain Score (Numeric/FACES): 8 - Related Data Allergies Allergy/AdvReac Type Severity Reaction Status Date / Time No Known Allergies Allergy Verified 09/29/17 10:35 Home Meds: Home Meds . 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 MAINTENANCE History: missed AB June 2016 Musculoskeletal History: Reports: Other (See Below) Other Musculoskeletal History: scoliosis Hematologic History: Reports: Anemia - Infectious Disease History Infectious Disease History: Reports: None - Past Surgical History Head Surgeries/Procedures: Reports: None Female Surgical History: Reports: D&C Social & Family History - Family History Family Medical History: Noncontributory - Tobacco Use Smoking Status *Q: Never Smoker - Caffeine Use Caffeine Use: Reports: None - Recreational Drug Use Recreational Drug Use: No ED ROS GENERAL - Review of Systems Review Of Systems: ROS reveals no pertinent complaints other than HPI. ED EXAM, GENERAL - Physical Exam Exam: See Below (See dictation) Course - Vital Signs Last Recorded V/S: Last Vital Signs Temp 36.6 C 09/29/17 13:38 Pulse 88 09/29/17 13:38 Resp 18 09/29/17 13:38 BP 118/58 L 09/29/17 13:38 Pulse Ox 99 09/29/17 13:38 - Orders/Labs/Meds Orders: Active Orders 24 hr Category Date Time Status Abdomen Pelvis w Cont [CT] Stat Exams 09/29/17 12:09 Taken UA W/MICROSCOPIC [URIN] Stat Lab 09/29/17 10:30 Ordered Sodium Chloride 0.9% [Saline Flush] Med 09/29/17 10:46 Active 10 ml FLUSH ASDIRECTED PRN Sodium Chloride 0.9% [Saline Flush] Med 09/29/17 10:46 Active 2.5 ml FLUSH ASDIRECTED PRN Saline Lock Insert [OM.PC] Stat Oth 09/29/17 10:46 Ordered Medication Orders Sodium Chloride (Saline Flush) 10 ml FLUSH ASDIRECTED PRN PRN Reason: Keep Vein Open Sodium Chloride (Saline Flush) 2.5 ml FLUSH ASDIRECTED PRN PRN Reason: Keep Vein Open Labs: Laboratory Tests 09/29/17 09/29/17 09/29/17 Range/Units 10:30 11:01 11:01 WBC 4.75 (4.0-11.0) K/uL RBC 4.65 (4.30-5.90) M/uL Hgb 14.1 (12.0-16.0) g/dL Hct 39.7 (36.0-46.0) % MCV 85.4 (80.0-98.0) fL MCH 30.3 (27.0-32.0) pg MCHC 35.5 (31.0-37.0) g/dL RDW Std Deviation 36.9 (28.0-62.0) fl RDW Coeff of Dionne 12 (11.0-15.0) % Plt Count 206 (150-400) K/uL MPV 11.10 (7.40-12.00) fL Neut % (Auto) 44.9 L (48.0-80.0) % Lymph % (Auto) 41.5 H (16.0-40.0) % [place] % (Auto) 12.8 (0.0-15.0) % Eos % (Auto) 0.4 (0.0-7.0) % Baso % (Auto) 0.4 (0.0-1.5) % Neut # (Auto) 2.1 (1.4-5.7) K/uL Lymph # (Auto) 2.0 (0.6-2.4) K/uL [place] # (Auto) 0.6 (0.0-0.8) K/uL Eos # (Auto) 0.0 (0.0-0.7) K/uL Baso # (Auto) 0.0 (0.0-0.1) K/uL Nucleated RBC % 0.0 /100WBC Nucleated RBCs # 0 K/uL Sodium 141 (136-145) mmol/L Potassium 4.9 (3.5-5.1) mmol/L Chloride 106 (98-107) mmol/L Carbon Dioxide 30.0 (21.0-32.0) mmol/L BUN 7 (7.0-18.0) mg/dL Creatinine 0.9 (0.6-1.0) mg/dL Est Cr Clr Drug Dosing 81.17 mL/min Estimated GFR (MDRD) > 60.0 ml/min Glucose 88 (74-106) mg/dL Calcium 9.1 (8.5-10.1) mg/dL Total Bilirubin 1.9 H (0.2-1.0) mg/dL AST 12 L (15-37) IU/L ALT 18 (14-63) IU/L Alkaline Phosphatase 40 L (46-116) U/L Total Protein 7.6 (6.4-8.2) g/dL Albumin 4.2 (3.4-5.0) g/dL Globulin 3.4 (2.0-3.5) g/dL Albumin/Globulin Ratio 1.2 L (1.3-2.8) HCG, Quant mIU/mL Urine Color YELLOW Urine Appearance CLEAR Urine pH 8.0 (5.0-8.0) Ur Specific [place] 1.015 (1.001-1.035) Urine Protein 100 (NEGATIVE) mg/dL Urine Glucose (UA) NEGATIVE (NEGATIVE) mg/dL Urine Ketones NEGATIVE (NEGATIVE) mg/dL Urine Occult Blood NEGATIVE (NEGATIVE) Urine Nitrite NEGATIVE (NEGATIVE) Urine Bilirubin NEGATIVE (NEGATIVE) Urine Urobilinogen 1.0 (<2.0) EU/dL Ur Leukocyte Esterase NEGATIVE (NEGATIVE) Urine RBC 0-2 (0-2/HPF) Urine WBC 5-10 (0-5/HPF) Ur Epithelial Cells MODERATE (NONE-FEW) Urine Bacteria FEW (NEGATIVE) Urine Mucus LIGHT (NONE-MOD) 09/29/17 Range/Units 11:01 WBC (4.0-11.0) K/uL RBC (4.30-5.90) M/uL Hgb (12.0-16.0) g/dL Hct (36.0-46.0) % MCV (80.0-98.0) fL MCH (27.0-32.0) pg MCHC (31.0-37.0) g/dL RDW Std Deviation (28.0-62.0) fl RDW Coeff of Dionne (11.0-15.0) % Plt Count (150-400) K/uL MPV (7.40-12.00) fL Neut % (Auto) (48.0-80.0) % Lymph % (Auto) (16.0-40.0) % [place] % (Auto) (0.0-15.0) % Eos % (Auto) (0.0-7.0) % Baso % (Auto) (0.0-1.5) % Neut # (Auto) (1.4-5.7) K/uL Lymph # (Auto) (0.6-2.4) K/uL [place] # (Auto) (0.0-0.8) K/uL Eos # (Auto) (0.0-0.7) K/uL Baso # (Auto) (0.0-0.1) K/uL Nucleated RBC % /100WBC Nucleated RBCs # K/uL Sodium (136-145) mmol/L Potassium (3.5-5.1) mmol/L Chloride (98-107) mmol/L Carbon Dioxide (21.0-32.0) mmol/L BUN (7.0-18.0) mg/dL Creatinine (0.6-1.0) mg/dL Est Cr Clr Drug Dosing mL/min Estimated GFR (MDRD) ml/min Glucose (74-106) mg/dL Calcium (8.5-10.1) mg/dL Total Bilirubin (0.2-1.0) mg/dL AST (15-37) IU/L ALT (14-63) IU/L Alkaline Phosphatase (46-116) U/L Total Protein (6.4-8.2) g/dL Albumin (3.4-5.0) g/dL Globulin (2.0-3.5) g/dL Albumin/Globulin Ratio (1.3-2.8) HCG, Quant 1.0 mIU/mL Urine Color Urine Appearance Urine pH (5.0-8.0) Ur Specific [place] (1.001-1.035) Urine Protein (NEGATIVE) mg/dL Urine Glucose (UA) (NEGATIVE) mg/dL Urine Ketones (NEGATIVE) mg/dL Urine Occult Blood (NEGATIVE) Urine Nitrite (NEGATIVE) Urine Bilirubin (NEGATIVE) Urine Urobilinogen (<2.0) EU/dL Ur Leukocyte Esterase (NEGATIVE) Urine RBC (0-2/HPF) Urine WBC (0-5/HPF) Ur Epithelial Cells (NONE-FEW) Urine Bacteria (NEGATIVE) Urine Mucus (NONE-MOD) Meds: Medications Generic Name Dose Route Start Last Admin Trade Name Freq PRN Reason Stop Dose Admin Sodium Chloride 10 ml 09/29/17 10:46 Saline Flush FLUSH ASDIRECTED PRN Keep Vein Open Sodium Chloride 2.5 ml 09/29/17 10:46 Saline Flush FLUSH ASDIRECTED PRN Keep Vein Open Discontinued Medications Generic Name Dose Route Start Last Admin Trade Name Freq PRN Reason Stop Dose Admin Sodium Chloride 1,000 mls @ 999 mls/hr 09/29/17 10:46 09/29/17 11:27 Normal Saline IV 09/29/17 11:46 999 mls/hr STAT ONE Administration Iopamidol 100 ml 09/29/17 13:20 09/29/17 13:43 Isovue-370 (76%) IVPUSH 09/29/17 13:21 100 ml ONETIME ONE Administration Ketorolac Tromethamine 30 mg 09/29/17 12:09 09/29/17 13:36 Toradol IVPUSH 09/29/17 12:10 30 mg ONETIME ONE Administration Morphine Sulfate 2 mg 09/29/17 10:47 09/29/17 11:32 Morphine IVPUSH 09/29/17 10:48 2 mg ONETIME ONE Administration Ondansetron HCl 4 mg 09/29/17 10:46 09/29/17 11:30 Zofran IVPUSH 09/29/17 10:47 4 mg ONETIME ONE Administration Departure - Departure Time of Disposition: 13:54 Disposition: Home, Self-Care 01 Condition: Good Clinical Impression: Abdominal pain Qualifiers: Abdominal location: right lower quadrant Qualified Code(s): R10.31 - Right lower quadrant pain - Discharge Information Referrals: PCP,None [Primary Care Provider] - Forms: ED Department Discharge Additional Instructions: The following information is given to patients seen in the emergency department who are being discharged to home. This information is to outline your options for follow-up care. We provide all patients seen in our emergency department with a follow-up referral. The need for follow-up, as well as the timing and circumstances, are variable depending upon the specifics of your emergency department visit. If you don't have a primary care physician on staff, we will provide you with a referral. We always advise you to contact your personal physician following an emergency department visit to inform them of the circumstance of the visit and for follow-up with them and/or the need for any referrals to a consulting specialist. The emergency department will also refer you to a specialist when appropriate. This referral assures that you have the opportunity for followup care with a specialist. All of these measure are taken in an effort to provide you with optimal care, which includes your followup. Under all circumstances we always encourage you to contact your private physician who remains a resource for coordinating your care. When calling for followup care, please make the office aware that this follow-up is from your recent emergency room visit. If for any reason you are refused follow-up, please contact the [facility] emergency department at and ask to speak to the emergency department charge nurse. [facility]- Internal Medicine and Family [facility] [address] [facility] Primary care-Women's Health [address] [place] [id number] Please contact our clinic for follow-up appointments regarding your delay of menstrual cycle and your lower abdominal pain. Please push hydration rest and use medications as prescribed for discomfort. Return to ER as needed and as discussed. - My Orders Last 24 Hours: My Active Orders 09/29/17 10:46 Sodium Chloride 0.9% [Saline Flush] 10 ml FLUSH ASDIRECTED PRN Sodium Chloride 0.9% [Saline Flush] 2.5 ml FLUSH ASDIRECTED PRN Saline Lock Insert [OM.PC] Stat 09/29/17 12:09 Abdomen Pelvis w Cont [CT] Stat - Assessment/Plan Last 24 Hours: My Active Orders 09/29/17 10:46 Sodium Chloride 0.9% [Saline Flush] 10 ml FLUSH ASDIRECTED PRN Sodium Chloride 0.9% [Saline Flush] 2.5 ml FLUSH ASDIRECTED PRN Saline Lock Insert [OM.PC] Stat 09/29/17 12:09 Abdomen Pelvis w Cont [CT] Stat
[2017-09-29 11:38] LABS: CHLORIDE,CL 106 mmol/L (98-107); SODIUM,NA 141 mmol/L (136-145)
[2017-09-29] MEDS ORDERED: Ketorolac 30 MG/ML SDV IVPUSH ONE (12:09)
[2017-09-29] MEDS ORDERED: Iopamidol 755 Mg/ML 100 ML Bottle IVPUSH ONE (13:20)
[2017-09-29 13:39] VITALS: BP 118/58
--- NOTE | 2017-09-30 20:54 | CT ---
EXAM DATE: 09/29/17 PATIENT'S AGE: 22 Patient: LUCILLE LEBLANC Facility: [place], [place] Site . Site : 1996 Study: CT Abdomen/Pelvis [id number] 1:28:06 PM Ordering Physician: Keyur Jones Final Report: HISTORY: Abdominal pain and nausea. TECHNIQUE: Intravenous contrast enhanced CT of the abdomen and pelvis. 70 mL of his in May 1969 contrast administered. COMPARISON: 03/20/2016. FINDINGS: There is no focal liver lesion. New mild periportal edema is noted. Recommend correlation with LFTs. No biliary ductal dilatation. Gallbladder does not appear overly distended. The spleen size is within normal limits. The adrenal glands are normal. There is no focal pancreatic abnormality or peripancreatic inflammatory change. Symmetric nephrograms. No hydronephrosis. Probable tiny cyst at the posterolateral aspect of the mid left kidney, unchanged. Urinary bladder is nondistended. - No small bowel obstruction. No appendicitis. No diverticulitis or definite colitis. No adenopathy. No aortic aneurysm. No free air. - No acute bony abnormality. - No infiltrate within the lung bases or pleural effusion. IMPRESSION: 1. New mild periportal edema involving the liver. This represents a nonspecific finding but can be seen with hepatitis. Recommend correlation with LFTs. 2. No appendicitis, bowel obstruction or diverticulitis. Dictated by Mika Vu MD @ 09/29/2017 1:44:10 PM Please note that all CT scans at this facility use dose modulation, iterative reconstruction, and/or weight-based dosing when appropriate to reduce radiation dose to as low as reasonably achievable. Dictated by: Mika Vu MD @ 09/29/2017 13:44:37 (Electronic Signature) Report Signed by Proxy. [facility]
== END 2017-09-29 14:19 | disposition home or self-care (01) ==
LOC: MW.ED 10:25
DX: R10.31 Right lower quadrant pain (principal)
CPT/HCPCS: 36415; 74177; 80053; 81001; 84702; 85025; 96361; 96374; 96375; 99284; J1885; J2270; J2405; J7040; Q9967

== ENCOUNTER 2018-05-19 18:13 | Emergency (ER) | payer SELFPAY ==
--- NOTE | 2018-05-19 18:19 | EDM.PDOC ---
ED HPI GENERAL MEDICAL PROBLEM - General Chief Complaint: PIN STICKER Problem Stated Complaint: AND SPOTTING Time Seen by Provider: 05/19/18 18:19 Source of Information: Reports: Patient History Limitations: Reports: No Limitations - History of Present Illness INITIAL COMMENTS - FREE TEXT/NARRATIVE: HISTORY AND PHYSICAL: History of present illness: Patient 22-year-old female here with vaginal bleeding in . LMP approximately 5 weeks gestation. She states she took 2 positive home tests last week. She has had light spotting and pelvic cramping. Not passing any clots or soaking pads. Review of systems: As per history of present illness and below otherwise all systems reviewed and negative. Past medical history: As per history of present illness and as reviewed below otherwise noncontributory. Surgical history: As per history of present illness and as reviewed below otherwise noncontributory. Social history: No reported history of drug or alcohol abuse. Family history: As per history of present illness and as reviewed below otherwise noncontributory. Physical exam: General: Patient sitting comfortably in no acute distress and nontoxic appearing HEENT: Atraumatic, normocephalic, pupils reactive, negative for conjunctival pallor or scleral icterus, mucous membranes moist, throat clear, neck supple, nontender, trachea midline. No meningeal signs. Lungs: Clear to auscultation, breath sounds equal bilaterally, chest nontender. Heart: S1S2, regular, negative for clicks, rubs, or overt murmur. Abdomen: Soft, nondistended, nontender. Negative for masses or hepatosplenomegaly. Negative for costovertebral tenderness. Pelvis: Stable nontender. Genitourinary: Deferred. Rectal: Deferred. Extremities: Atraumatic, negative for cords or calf pain. Neurovascular unremarkable. Neuro: Awake, alert, oriented. Cranial nerves II through XII unremarkable. Cerebellum unremarkable. Motor and sensory unremarkable throughout. Exam nonfocal. Notes: Diagnostics: CBC, ABO/Rh, hcg quant, OB US Therapeutics: None Prescriptions: none Impression: Threatened Plan: 1. Pelvic rest as instructed 2. Follow up with cigarette vendor, please call the number provided to schedule an appointment 3. Return to ED as needed as discussed Definitive disposition and diagnosis as appropriate pending reevaluation and review of above. abd cramping Pain Score (Numeric/FACES): 5 - Related Data Allergies Allergy/AdvReac Type Severity Reaction Status Date / Time No Known Allergies Allergy Verified 12/01/17 20:42 Home Meds: Home Meds . [No Known Home Meds] 09/29/17 [History] Past Medical History - Past Health History Medical/Surgical History: Denies Medical/Surgical History Gastrointestinal History: Reports: Other (See Below) Other Gastrointestinal History: occasional heartburn Genitourinary History: Reports: None PIN STICKER History: Reports: Other (See Below) Other PIN STICKER History: missed AB June 2016 Musculoskeletal History: Reports: Other (See Below) Other Musculoskeletal History: scoliosis Hematologic History: Reports: Anemia, Blood Transfusion(s) - Infectious Disease History Infectious Disease History: Reports: None - Past Surgical History Head Surgeries/Procedures: Reports: None Female Surgical History: Reports: D&C Musculoskeletal Surgical History: Reports: None Social & Family History - Family History Family Medical History: Noncontributory - Caffeine Use Caffeine Use: Reports: Coffee ED ROS GENERAL - Review of Systems Review Of Systems: ROS reveals no pertinent complaints other than HPI. ED EXAM - Physical Exam Exam: See Below (see dictation) Course - Vital Signs Last Recorded V/S: Last Vital Signs Temp 97.6 F 05/19/18 18:25 Pulse 88 05/19/18 18:25 Resp 16 05/19/18 18:25 BP 113/53 L 05/19/18 18:25 Pulse Ox 99 05/19/18 18:25 - Orders/Labs/Meds Labs: Laboratory Tests 05/19/18 05/19/18 05/19/18 Range/Units 18:31 18:31 18:31 WBC 5.97 (4.0-11.0) K/uL RBC 4.18 L (4.30-5.90) M/uL Hgb 11.9 L (12.0-16.0) g/dL Hct 34.7 L (36.0-46.0) % MCV 83.0 (80.0-98.0) fL MCH 28.5 (27.0-32.0) pg MCHC 34.3 (31.0-37.0) g/dL RDW Std Deviation 41.1 (28.0-62.0) fl RDW Coeff of Dionne 14 (11.0-15.0) % Plt Count 243 (150-400) K/uL MPV 10.40 (7.40-12.00) fL Neut % (Auto) 54.1 (48.0-80.0) % Lymph % (Auto) 34.7 (16.0-40.0) % [place] % (Auto) 10.4 (0.0-15.0) % Eos % (Auto) 0.5 (0.0-7.0) % Baso % (Auto) 0.3 (0.0-1.5) % Neut # (Auto) 3.2 (1.4-5.7) K/uL Lymph # (Auto) 2.1 (0.6-2.4) K/uL [place] # (Auto) 0.6 (0.0-0.8) K/uL Eos # (Auto) 0.0 (0.0-0.7) K/uL Baso # (Auto) 0.0 (0.0-0.1) K/uL Nucleated RBC % 0.0 /100WBC Nucleated RBCs # 0 K/uL HCG, Quant 1829.0 mIU/mL Blood Type A POSITIVE Departure - Departure Time of Disposition: 20:51 Disposition: Home, Self-Care 01 Condition: Good Clinical Impression: Threatened - Discharge Information Referrals: PCP,None [Primary Care Provider] - Forms: ED Department Discharge Additional Instructions: The following information is given to patients seen in the emergency department who are being discharged to home. This information is to outline your options for follow-up care. We provide all patients seen in our emergency department with a follow-up referral. The need for follow-up, as well as the timing and circumstances, are variable depending upon the specifics of your emergency department visit. If you don't have a primary care physician on staff, we will provide you with a referral. We always advise you to contact your personal physician following an emergency department visit to inform them of the circumstance of the visit and for follow-up with them and/or the need for any referrals to a consulting specialist. The emergency department will also refer you to a specialist when appropriate. This referral assures that you have the opportunity for follow-up care with a specialist. All of these measure are taken in an effort to provide you with optimal care, which includes your follow-up. Under all circumstances we always encourage you to contact your private physician who remains a resource for coordinating your care. When calling for follow-up care, please make the office aware that this follow-up is from your recent emergency room visit. If for any reason you are refused follow-up, please contact the [facility] Emergency Department at and asked to speak to the emergency department charge nurse. [facility] [address] [place] [id number] 1. Pelvic rest as instructed 2. Follow up with cigarette vendor, please call the number provided to schedule an appointment 3. Return to ED as needed as discussed
--- NOTE | 2018-05-19 20:43 | US ---
HISTORY: Abdominal pain and spotting. Beta HCG 1800 COMPARISON: None available of this gestation. TECHNIQUE: Transvaginal ultrasound examination of the early was performed. FINDINGS: A single small intrauterine gestational sac is seen without an identifiable a pole. The mean sac diameter measurement of 0.3 cm gives an estimated gestational age of 5 weeks 1 day with an estimated date of delivery of 01/18/2019. This correlates well with the LMP of 04/10/2018 which gives a clinical age of 5 weeks 4 days. There is a tiny fluid collection located superior to the gestational sac in the uterine cavity measuring up to 0.3 centimeters in diameter, probably a small implantation hemorrhage. There is no sign of free fluid in the pelvis. The ovaries are normal in appearance. IMPRESSION: Single intrauterine gestational sac with estimated age of 5 weeks 1 day, correlating well with the LMP. A pole cannot be identified at this time so cardiac activity cannot be identified. Tiny implantation hemorrhage located superior to the gestational sac. Dictated by Luís Mejia MD @ May 19 2018 8:36PM Signed by Dr. Luís Mejia @ May 19 2018 8:41PM
[2018-05-19 21:09] VITALS: BP 109/66
== END 2018-05-19 21:08 | disposition home or self-care (01) ==
LOC: MW.ED 18:13
DX: O20.0 Threatened abortion (principal); Z3A.01 Less than 8 weeks gestation of pregnancy
CPT/HCPCS: 36415; 76801; 76801-26; 84702; 85025; 86900; 86901; 99283; 99284-25

== ENCOUNTER 2018-05-30 07:51 | Emergency (ER) | payer SELFPAY ==
[2018-05-30] MEDS ORDERED: Sodium Chloride 0.9% 2.5 ML Syringe FLUSH PRN (08:11)
[2018-05-30] MEDS ORDERED: Ondansetron 4 MG/2 ML SDV IVPUSH ONE (08:11)
[2018-05-30] MEDS ORDERED: Sodium Chloride 0.9% 1,000 ML IV ONE ×3 (08:11→11:07)
[2018-05-30] MEDS ORDERED: Sodium Chloride 0.9% 10 ML Syringe FLUSH PRN (08:11)
[2018-05-30 09:20] LABS: CHLORIDE,CL 103 mmol/L (98-107); SODIUM,NA 139 mmol/L (136-145)
--- NOTE | 2018-05-30 10:10 | EDM.PDOC ---
ED HPI GENERAL MEDICAL PROBLEM - General Chief Complaint: Abdominal Pain Stated Complaint: THROWING UP BLOOD Time Seen by Provider: 05/30/18 08:04 Source of Information: Reports: Patient History Limitations: Reports: No Limitations - History of Present Illness INITIAL COMMENTS - FREE TEXT/NARRATIVE: History of present illness: [Patient is 7 weeks and complaining of nausea and vomiting throughout the night. She states she's had 3-4 episodes of emesis throughout the night and the last episode was bloody. She denies any belly pain, vaginal discharge or vaginal bleeding. Review of systems: As per history of present illness and below otherwise all systems reviewed and negative. Past medical history: As per history of present illness and as reviewed below otherwise noncontributory. Surgical history: As per history of present illness and as reviewed below otherwise noncontributory. Social history: No reported history of drug or alcohol abuse. Family history: As per history of present illness and as reviewed below otherwise noncontributory. Physical exam: General: Well developed, well nourished in NAD HEENT: Atraumatic, normocephalic, pupils reactive, negative for conjunctival pallor or scleral icterus, mucous membranes moist, throat clear, neck supple, nontender, trachea midline. Lungs: Clear to auscultation, breath sounds equal bilaterally, chest nontender. Heart: S1S2, regular, negative for clicks, rubs, or JVD. Abdomen: NABS, Soft, nondistended, nontender. Negative for masses or hepatosplenomegaly. Negative for costovertebral tenderness. Pelvis: Stable nontender. Genitourinary: Deferred. Rectal: Deferred. Extremities: Atraumatic, negative for cords or calf pain. Neurovascular unremarkable. Neuro: Awake, alert, oriented. Cranial nerves II through XII unremarkable. Cerebellum unremarkable. Motor and sensory unremarkable throughout. Exam nonfocal. Skin:warm and dry Diagnostics: CBC, hCG Quant, chemistry Therapeutics: IV hydrated with 3 L normal saline, Zofran ED Course: Remained stable Impression: Early with vomiting Prescriptions: Zofran Plan: Increase fluids, follow-up with OB/primary care use Zofran as directed for nausea and vomiting. Definitive disposition and diagnosis as appropriate pending reevaluation and review of above. Lower Abdomen Pain Score (Numeric/FACES): 8 - Related Data Allergies Allergy/AdvReac Type Severity Reaction Status Date / Time No Known Allergies Allergy Verified 05/30/18 08:03 Home Meds: Home Meds Ondansetron [Zofran ODT] 4 mg PO Q6H PRN #12 tab.dis 05/30/18 [Rx] Past Medical History - Past Health History Medical/Surgical History: Denies Medical/Surgical History Gastrointestinal History: Reports: Other (See Below) Other Gastrointestinal History: occasional heartburn Genitourinary History: Reports: None MEDIA COORDINATOR History: Reports: Other (See Below) Other MEDIA COORDINATOR History: missed AB June 2016 Musculoskeletal History: Reports: Other (See Below) Other Musculoskeletal History: scoliosis Hematologic History: Reports: Anemia, Blood Transfusion(s) - Infectious Disease History Infectious Disease History: Reports: None - Past Surgical History Head Surgeries/Procedures: Reports: None Female Surgical History: Reports: D&C Musculoskeletal Surgical History: Reports: None Social & Family History - Family History Family Medical History: Noncontributory - Tobacco Use Smoking Status *Q: Never Smoker Second Hand Smoke Exposure: No - Caffeine Use Caffeine Use: Reports: None - Recreational Drug Use Recreational Drug Use: No ED ROS GENERAL - Review of Systems Review Of Systems: ROS reveals no pertinent complaints other than HPI. ED EXAM - Physical Exam Exam: See Below (See history of present illness) Course - Vital Signs Last Recorded V/S: Last Vital Signs Temp 97.1 F 05/30/18 08:03 Pulse 89 05/30/18 09:45 Resp 16 05/30/18 09:45 BP 99/42 L 05/30/18 09:45 Pulse Ox 99 05/30/18 09:45 - Orders/Labs/Meds Orders: Active Orders 24 hr Category Date Time Status Sodium Chloride 0.9% [Saline Flush] Med 05/30/18 08:11 Active 10 ml FLUSH ASDIRECTED PRN Sodium Chloride 0.9% [Saline Flush] Med 05/30/18 08:11 Active 2.5 ml FLUSH ASDIRECTED PRN Saline Lock Insert [OM.PC] Stat Oth 05/30/18 08:11 Ordered Medication Orders Sodium Chloride (Saline Flush) 10 ml FLUSH ASDIRECTED PRN PRN Reason: Keep Vein Open Sodium Chloride (Saline Flush) 2.5 ml FLUSH ASDIRECTED PRN PRN Reason: Keep Vein Open Labs: Laboratory Tests 05/30/18 05/30/18 05/30/18 Range/Units 08:25 08:25 08:25 WBC 5.67 (4.0-11.0) K/uL RBC 4.62 (4.30-5.90) M/uL Hgb 13.4 (12.0-16.0) g/dL Hct 38.3 (36.0-46.0) % MCV 82.9 (80.0-98.0) fL MCH 29.0 (27.0-32.0) pg MCHC 35.0 (31.0-37.0) g/dL RDW Std Deviation 40.9 (28.0-62.0) fl RDW Coeff of Dionne 14 (11.0-15.0) % Plt Count 235 (150-400) K/uL MPV 10.40 (7.40-12.00) fL Neut % (Auto) 52.7 (48.0-80.0) % Lymph % (Auto) 36.7 (16.0-40.0) % [place] % (Auto) 9.0 (0.0-15.0) % Eos % (Auto) 1.1 (0.0-7.0) % Baso % (Auto) 0.5 (0.0-1.5) % Neut # (Auto) 3.0 (1.4-5.7) K/uL Lymph # (Auto) 2.1 (0.6-2.4) K/uL [place] # (Auto) 0.5 (0.0-0.8) K/uL Eos # (Auto) 0.1 (0.0-0.7) K/uL Baso # (Auto) 0.0 (0.0-0.1) K/uL Nucleated RBC % 0.0 /100WBC Nucleated RBCs # 0 K/uL Sodium 139 (136-145) mmol/L Potassium 3.5 (3.5-5.1) mmol/L Chloride 103 (98-107) mmol/L Carbon Dioxide 26.3 (21.0-32.0) mmol/L BUN 8 (7.0-18.0) mg/dL Creatinine 0.8 (0.6-1.0) mg/dL Est Cr Clr Drug Dosing 92.02 mL/min Estimated GFR (MDRD) > 60.0 ml/min Glucose 91 (74-106) mg/dL Calcium 9.1 (8.5-10.1) mg/dL Total Bilirubin 0.7 (0.2-1.0) mg/dL AST 14 L (15-37) IU/L ALT 19 (14-63) IU/L Alkaline Phosphatase 43 L (46-116) U/L Total Protein 8.0 (6.4-8.2) g/dL Albumin 4.1 (3.4-5.0) g/dL Globulin 3.9 (2.6-4.0) g/dL Albumin/Globulin Ratio 1.1 (0.9-1.6) HCG, Quant 52342.0 mIU/mL Urine Color Urine Appearance Urine pH (5.0-8.0) Ur Specific [place] (1.001-1.035) Urine Protein (NEGATIVE) mg/dL Urine Glucose (UA) (NEGATIVE) mg/dL Urine Ketones (NEGATIVE) mg/dL Urine Occult Blood (NEGATIVE) Urine Nitrite (NEGATIVE) Urine Bilirubin (NEGATIVE) Urine Urobilinogen (<2.0) EU/dL Ur Leukocyte Esterase (NEGATIVE) Urine RBC (0-2/HPF) Urine WBC (0-5/HPF) Ur Epithelial Cells (NONE-FEW) Urine Bacteria (NEGATIVE) 05/30/18 Range/Units 11:39 WBC (4.0-11.0) K/uL RBC (4.30-5.90) M/uL Hgb (12.0-16.0) g/dL Hct (36.0-46.0) % MCV (80.0-98.0) fL MCH (27.0-32.0) pg MCHC (31.0-37.0) g/dL RDW Std Deviation (28.0-62.0) fl RDW Coeff of Dionne (11.0-15.0) % Plt Count (150-400) K/uL MPV (7.40-12.00) fL Neut % (Auto) (48.0-80.0) % Lymph % (Auto) (16.0-40.0) % [place] % (Auto) (0.0-15.0) % Eos % (Auto) (0.0-7.0) % Baso % (Auto) (0.0-1.5) % Neut # (Auto) (1.4-5.7) K/uL Lymph # (Auto) (0.6-2.4) K/uL [place] # (Auto) (0.0-0.8) K/uL Eos # (Auto) (0.0-0.7) K/uL Baso # (Auto) (0.0-0.1) K/uL Nucleated RBC % /100WBC Nucleated RBCs # K/uL Sodium (136-145) mmol/L Potassium (3.5-5.1) mmol/L Chloride (98-107) mmol/L Carbon Dioxide (21.0-32.0) mmol/L BUN (7.0-18.0) mg/dL Creatinine (0.6-1.0) mg/dL Est Cr Clr Drug Dosing mL/min Estimated GFR (MDRD) ml/min Glucose (74-106) mg/dL Calcium (8.5-10.1) mg/dL Total Bilirubin (0.2-1.0) mg/dL AST (15-37) IU/L ALT (14-63) IU/L Alkaline Phosphatase (46-116) U/L Total Protein (6.4-8.2) g/dL Albumin (3.4-5.0) g/dL Globulin (2.6-4.0) g/dL Albumin/Globulin Ratio (0.9-1.6) HCG, Quant mIU/mL Urine Color YELLOW Urine Appearance CLEAR Urine pH 6.5 (5.0-8.0) Ur Specific [place] 1.015 (1.001-1.035) Urine Protein NEGATIVE (NEGATIVE) mg/dL Urine Glucose (UA) NEGATIVE (NEGATIVE) mg/dL Urine Ketones NEGATIVE (NEGATIVE) mg/dL Urine Occult Blood NEGATIVE (NEGATIVE) Urine Nitrite NEGATIVE (NEGATIVE) Urine Bilirubin NEGATIVE (NEGATIVE) Urine Urobilinogen 0.2 (<2.0) EU/dL Ur Leukocyte Esterase NEGATIVE (NEGATIVE) Urine RBC NONE SEEN (0-2/HPF) Urine WBC 0-1 (0-5/HPF) Ur Epithelial Cells MODERATE (NONE-FEW) Urine Bacteria FEW (NEGATIVE) Meds: Medications Generic Name Dose Route Start Last Admin Trade Name Freq PRN Reason Stop Dose Admin Sodium Chloride 10 ml 05/30/18 08:11 Saline Flush FLUSH ASDIRECTED PRN Keep Vein Open Sodium Chloride 2.5 ml 05/30/18 08:11 Saline Flush FLUSH ASDIRECTED PRN Keep Vein Open Discontinued Medications Generic Name Dose Route Start Last Admin Trade Name Manjit PRN Reason Stop Dose Admin Sodium Chloride 1,000 mls @ 999 mls/hr 05/30/18 08:11 05/30/18 08:32 Normal Saline IV 05/30/18 09:11 999 mls/hr .Bolus ONE Administration Sodium Chloride 1,000 mls @ 999 mls/hr 05/30/18 09:46 05/30/18 09:50 Normal Saline IV 05/30/18 10:46 999 mls/hr .Bolus ONE Administration Sodium Chloride 1,000 mls @ 999 mls/hr 05/30/18 11:07 05/30/18 11:11 Normal Saline IV 05/30/18 12:07 999 mls/hr .Bolus ONE Administration Ondansetron HCl 4 mg 05/30/18 08:11 05/30/18 08:32 Zofran IVPUSH 05/30/18 08:12 4 mg ONETIME ONE Administration Departure - Departure Time of Disposition: 12:16 Disposition: Home, Self-Care 01 Condition: Good Clinical Impression: Nausea & vomiting Qualifiers: Vomiting type: unspecified Vomiting Intractability: non-intractable Qualified Code(s): R11.2 - Nausea with vomiting, unspecified - Discharge Information *PRESCRIPTION DRUG MONITORING PROGRAM REVIEWED*: No *COPY OF PRESCRIPTION DRUG MONITORING REPORT IN PATIENT KEY: No Prescriptions: Ondansetron [Zofran ODT] 4 mg PO Q6H PRN #12 tab.dis PRN Reason: Nausea Referrals: PCP,None [Primary Care Provider] - Forms: ED Department Discharge Additional Instructions: The following information is given to patients seen in the emergency department who are being discharged to home. This information is to outline your options for follow-up care. We provide all patients seen in our emergency department with a follow-up referral. The need for follow-up, as well as the timing and circumstances, are variable depending upon the specifics of your emergency department visit. If you don't have a primary care physician on staff, we will provide you with a referral. We always advise you to contact your personal physician following an emergency department visit to inform them of the circumstance of the visit and for follow-up with them and/or the need for any referrals to a consulting specialist. The emergency department will also refer you to a specialist when appropriate. This referral assures that you have the opportunity for follow-up care with a specialist. All of these measure are taken in an effort to provide you with optimal care, which includes your follow-up. Under all circumstances we always encourage you to contact your private physician who remains a resource for coordinating your care. When calling for follow-up care, please make the office aware that this follow-up is from your recent emergency room visit. If for any reason you are refused follow-up, please contact the [facility] Emergency Department at and asked to speak to the emergency department charge nurse. Take meds as directed, follow up with your primary care physician, return to ER if symptoms worsen or change. [facility] [address] [place] [id number] [facility] - [facility] [address] [place] [id number] - My Orders Last 24 Hours: My Active Orders 05/30/18 08:11 Sodium Chloride 0.9% [Saline Flush] 10 ml FLUSH ASDIRECTED PRN Sodium Chloride 0.9% [Saline Flush] 2.5 ml FLUSH ASDIRECTED PRN Saline Lock Insert [OM.PC] Stat - Assessment/Plan Last 24 Hours: My Active Orders 05/30/18 08:11 Sodium Chloride 0.9% [Saline Flush] 10 ml FLUSH ASDIRECTED PRN Sodium Chloride 0.9% [Saline Flush] 2.5 ml FLUSH ASDIRECTED PRN Saline Lock Insert [OM.PC] Stat
[2018-05-30 12:36] VITALS: BP 96/61
== END 2018-05-30 12:35 | disposition home or self-care (01) ==
LOC: MW.ED 07:51
DX: O21.9 Vomiting of pregnancy, unspecified (principal); Z3A.01 Less than 8 weeks gestation of pregnancy
CPT/HCPCS: 36415; 80053; 81001; 84702; 85025; 96361; 96374; 99284; J2405; J7040; 99283

== ENCOUNTER 2018-07-01 13:54 | Emergency (ER) | payer MEDICAID ==
--- NOTE | 2018-07-01 14:38 | EDM.PDOC ---
ED HPI GENERAL MEDICAL PROBLEM - General Chief Complaint: Abdominal Pain Stated Complaint: PAIN AND BLEEDING WITH 10 WKS Time Seen by Provider: 07/01/18 13:59 Source of Information: Reports: Patient History Limitations: Reports: No Limitations - History of Present Illness INITIAL COMMENTS - FREE TEXT/NARRATIVE: Presents to the emergency room reporting abdominal pain. She states that the "stomachache" started last night. It is mostly in the epigastric area and on the left side. Not a cramping pain. She has been nauseated and had one bile emesis this morning. She is 10 weeks 4 days LMP April 10, 2018. She has been seen at [facility] currently taking metronidazole for vaginitis. Denies vaginal bleeding, fever, dysuria, constipation, diarrhea. She had a brown formed stool at 1:00 this afternoon. She has been eating and drinking okay. She does report a sore throat as well. abd Pain Score (Numeric/FACES): 9 - Related Data Allergies Allergy/AdvReac Type Severity Reaction Status Date / Time No Known Allergies Allergy Verified 05/30/18 08:03 Home Meds: Home Meds . [No Known Home Meds] 07/01/18 [History] Past Medical History - Past Health History Medical/Surgical History: Denies Medical/Surgical History Gastrointestinal History: Reports: Other (See Below) Other Gastrointestinal History: occasional heartburn Genitourinary History: Reports: None PHARMACIST IN CHARGE History: Reports: Other (See Below) Other PHARMACIST IN CHARGE History: missed AB June 2016 Musculoskeletal History: Reports: Other (See Below) Other Musculoskeletal History: scoliosis Hematologic History: Reports: Anemia, Blood Transfusion(s) - Infectious Disease History Infectious Disease History: Reports: None - Past Surgical History Head Surgeries/Procedures: Reports: None Female Surgical History: Reports: D&C Musculoskeletal Surgical History: Reports: None Social & Family History - Family History Family Medical History: Noncontributory - Tobacco Use Smoking Status *Q: Never Smoker - Caffeine Use Caffeine Use: Reports: Coffee, Tea - Recreational Drug Use Recreational Drug Use: No ED ROS GENERAL - Review of Systems Review Of Systems: ROS reveals no pertinent complaints other than HPI. ED EXAM, GI/ABD - Physical Exam Exam: See Below Exam Limited By: No Limitations General Appearance: Alert, No Apparent Distress Course - Vital Signs Last Recorded V/S: Last Vital Signs Temp 36.6 C 07/01/18 14:03 Pulse 90 07/01/18 14:03 Resp 16 07/01/18 14:03 BP 121/67 07/01/18 14:03 Pulse Ox 100 07/01/18 14:03 - Orders/Labs/Meds Orders: Active Orders 24 hr Category Date Time Status CULTURE STREP A CONFIRMATION [RM] Stat Lab 07/01/18 14:20 Results STREP SCRN A RAPID W CULT CONF [RM] Stat Lab 07/01/18 14:20 Results Labs: Laboratory Tests 07/01/18 07/01/18 07/01/18 Range/Units 14:25 14:35 14:35 WBC 5.11 (4.0-11.0) K/uL RBC 3.96 L (4.30-5.90) M/uL Hgb 11.5 L (12.0-16.0) g/dL Hct 32.5 L (36.0-46.0) % MCV 82.1 (80.0-98.0) fL MCH 29.0 (27.0-32.0) pg MCHC 35.4 (31.0-37.0) g/dL RDW Std Deviation 41.7 (28.0-62.0) fl RDW Coeff of Dionne 14 (11.0-15.0) % Plt Count 232 (150-400) K/uL MPV 9.80 (7.40-12.00) fL Neut % (Auto) 57.9 (48.0-80.0) % Lymph % (Auto) 33.9 (16.0-40.0) % [place] % (Auto) 7.8 (0.0-15.0) % Eos % (Auto) 0.2 (0.0-7.0) % Baso % (Auto) 0.2 (0.0-1.5) % Neut # (Auto) 3.0 (1.4-5.7) K/uL Lymph # (Auto) 1.7 (0.6-2.4) K/uL [place] # (Auto) 0.4 (0.0-0.8) K/uL Eos # (Auto) 0.0 (0.0-0.7) K/uL Baso # (Auto) 0.0 (0.0-0.1) K/uL Nucleated RBC % 0.0 /100WBC Nucleated RBCs # 0 K/uL Sodium 136 (136-145) mmol/L Potassium 3.9 (3.5-5.1) mmol/L Chloride 103 (98-107) mmol/L Carbon Dioxide 26.2 (21.0-32.0) mmol/L BUN 6 L (7.0-18.0) mg/dL Creatinine 0.6 (0.6-1.0) mg/dL Est Cr Clr Drug Dosing 123.05 mL/min Estimated GFR (MDRD) > 60.0 ml/min Glucose 96 (74-106) mg/dL Calcium 8.8 (8.5-10.1) mg/dL Total Bilirubin 0.4 (0.2-1.0) mg/dL AST 13 L (15-37) IU/L ALT 12 L (14-63) IU/L Alkaline Phosphatase 25 L (46-116) U/L Total Protein 7.1 (6.4-8.2) g/dL Albumin 3.3 L (3.4-5.0) g/dL Globulin 3.8 (2.6-4.0) g/dL Albumin/Globulin Ratio 0.9 (0.9-1.6) Lipase (73-393) U/L HCG, Quant mIU/mL Urine Color YELLOW Urine Appearance CLEAR Urine pH 6.5 (5.0-8.0) Ur Specific [place] 1.020 (1.001-1.035) Urine Protein NEGATIVE (NEGATIVE) mg/dL Urine Glucose (UA) NEGATIVE (NEGATIVE) mg/dL Urine Ketones NEGATIVE (NEGATIVE) mg/dL Urine Occult Blood NEGATIVE (NEGATIVE) Urine Nitrite NEGATIVE (NEGATIVE) Urine Bilirubin NEGATIVE (NEGATIVE) Urine Urobilinogen 0.2 (<2.0) EU/dL Ur Leukocyte Esterase NEGATIVE (NEGATIVE) Urine RBC 0-1 (0-2/HPF) Urine WBC 0-1 (0-5/HPF) Ur Epithelial Cells FEW (NONE-FEW) Urine Bacteria RARE (NEGATIVE) 07/01/18 07/01/18 Range/Units 14:35 14:35 WBC (4.0-11.0) K/uL RBC (4.30-5.90) M/uL Hgb (12.0-16.0) g/dL Hct (36.0-46.0) % MCV (80.0-98.0) fL MCH (27.0-32.0) pg MCHC (31.0-37.0) g/dL RDW Std Deviation (28.0-62.0) fl RDW Coeff of Dionne (11.0-15.0) % Plt Count (150-400) K/uL MPV (7.40-12.00) fL Neut % (Auto) (48.0-80.0) % Lymph % (Auto) (16.0-40.0) % [place] % (Auto) (0.0-15.0) % Eos % (Auto) (0.0-7.0) % Baso % (Auto) (0.0-1.5) % Neut # (Auto) (1.4-5.7) K/uL Lymph # (Auto) (0.6-2.4) K/uL [place] # (Auto) (0.0-0.8) K/uL Eos # (Auto) (0.0-0.7) K/uL Baso # (Auto) (0.0-0.1) K/uL Nucleated RBC % /100WBC Nucleated RBCs # K/uL Sodium (136-145) mmol/L Potassium (3.5-5.1) mmol/L Chloride (98-107) mmol/L Carbon Dioxide (21.0-32.0) mmol/L BUN (7.0-18.0) mg/dL Creatinine (0.6-1.0) mg/dL Est Cr Clr Drug Dosing mL/min Estimated GFR (MDRD) ml/min Glucose (74-106) mg/dL Calcium (8.5-10.1) mg/dL Total Bilirubin (0.2-1.0) mg/dL AST (15-37) IU/L ALT (14-63) IU/L Alkaline Phosphatase (46-116) U/L Total Protein (6.4-8.2) g/dL Albumin (3.4-5.0) g/dL Globulin (2.6-4.0) g/dL Albumin/Globulin Ratio (0.9-1.6) Lipase 112 (73-393) U/L HCG, Quant 570752.0 mIU/mL Urine Color Urine Appearance Urine pH (5.0-8.0) Ur Specific [place] (1.001-1.035) Urine Protein (NEGATIVE) mg/dL Urine Glucose (UA) (NEGATIVE) mg/dL Urine Ketones (NEGATIVE) mg/dL Urine Occult Blood (NEGATIVE) Urine Nitrite (NEGATIVE) Urine Bilirubin (NEGATIVE) Urine Urobilinogen (<2.0) EU/dL Ur Leukocyte Esterase (NEGATIVE) Urine RBC (0-2/HPF) Urine WBC (0-5/HPF) Ur Epithelial Cells (NONE-FEW) Urine Bacteria (NEGATIVE) - Re-Assessments/Exams Free Text/Narrative Re-Assessment/Exam: 07/01/18 17:13 The patient is wondering if her pain might 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 She has to do a lot of activity she isn't used to. She has a first OB visit scheduled on Saturday. Departure - Departure Time of Disposition: 17:14 Disposition: Home, Self-Care 01 Condition: Good Clinical Impression: Abdominal pain Qualifiers: Abdominal location: epigastric Qualified Code(s): R10.13 - Epigastric pain - Discharge Information Instructions: First Trimester of , [id number] Referrals: PCP,None [Primary Care Provider] - [facility] [Outside] Forms: ED Department Discharge Additional Instructions: 1. Drink plenty of fluids and rest. 2. Follow up with your OB on Saturday as previously scheduled. - My Orders Last 24 Hours: My Active Orders 07/01/18 14:20 CULTURE STREP A CONFIRMATION [RM] Stat STREP SCRN A RAPID W CULT CONF [] Stat - Assessment/Plan Last 24 Hours: My Active Orders 07/01/18 14:20 CULTURE STREP A CONFIRMATION [RM] Stat STREP SCRN A RAPID W CULT CONF [RM] Stat
[2018-07-01 15:19] LABS: CHLORIDE,CL 103 mmol/L (98-107); SODIUM,NA 136 mmol/L (136-145)
--- NOTE | 2018-07-01 17:04 | US ---
INDICATION: Left lower quadrant pain with bleeding TECHNIQUE: Ultrasound OB pelvis transvaginal. Real time mckeon scale imaging of the pelvis was performed. COMPARISON: 05/19/2018 FINDINGS: LMP: 04/10/2018 Gestational age by LMP: 11 weeks 5 days Estimated due date by LMP: 01/15/2019 Sonographic imaging demonstrates a single living intrauterine gestation. The embryo demonstrates a regular cardiac rate measuring 159 beats per minute. The embryo`s crown rump length measurement of 3.91 cm corresponds to a gestational age of 10 weeks 6 days with a sonographic due date of 01/21/2019. There is a normal appearing yolk sac. There are no gross abnormalities noted within the embryo at this early state of development. The placenta has not yet developed. The gestational sac has a normal appearance and there is no evidence of a perigestational hemorrhage. The amount of fluid within the sac appears appropriate for gestational age. The cervix is closed. The myometrium appears normal. The ovaries are of normal size. There are no suspicious fluid collections noted in the cul-de-sac. IMPRESSION: Viable intrauterine . Gestational age calculated at 10 weeks 6 days with a sonographic due date of 01/21/2019. No abnormalities seen. Dictated by Donnell Arnold MD @ 07/01/2018 5:02:03 PM Dictated by: Donnell Arnold MD @ 07/01/2018 17:02:08 (Electronically Signed)
[2018-07-01 17:34] VITALS: BP 115/69
== END 2018-07-01 17:30 | disposition home or self-care (01) ==
LOC: MW.ED 13:54
DX: O99.89 Other specified diseases and conditions complicating pregnancy, childbirth and the puerperium (principal); R10.13 Epigastric pain; O21.9 Vomiting of pregnancy, unspecified; Z3A.10 10 weeks gestation of pregnancy
CPT/HCPCS: 36415; 76801; 76801-26; 80053; 81001; 83690; 84702; 85025; 87081; 87880-QW; 99284-25

== ENCOUNTER 2018-07-08 23:25 | Emergency (ER) | payer MEDICAID ==
[2018-07-08 23:37] VITALS: BP 127/75
--- NOTE | 2018-07-08 23:38 | EDM.PDOC ---
ED HPI GENERAL MEDICAL PROBLEM - General Chief Complaint: General Stated Complaint: MEDICAL CLEARANCE Time Seen by Provider: 07/08/18 23:34 - History of Present Illness INITIAL COMMENTS - FREE TEXT/NARRATIVE: HISTORY AND PHYSICAL: History of present illness: Patient's 23-year-old female who presents in custody of law enforcement for medical clearance patient has no complaints Review of systems: As per history of present illness and below otherwise all systems reviewed and negative. Past medical history: As per history of present illness and as reviewed below otherwise noncontributory. Surgical history: As per history of present illness and as reviewed below otherwise noncontributory. Social history: No reported history of drug or alcohol abuse. Family history: As per history of present illness and as reviewed below otherwise noncontributory. Physical exam: HEENT: Atraumatic, normocephalic, pupils reactive, negative for conjunctival pallor or scleral icterus, mucous membranes moist, throat clear, neck supple, nontender, trachea midline. Lungs: Clear to auscultation, breath sounds equal bilaterally, chest nontender. Heart: S1S2, regular, negative for clicks, rubs, or JVD. Abdomen: Soft, nondistended, nontender. Negative for masses or hepatosplenomegaly. Negative for costovertebral tenderness. Pelvis: Stable nontender. Genitourinary: Deferred. Rectal: Deferred. Extremities: Atraumatic, negative for cords or calf pain. Neurovascular unremarkable. Neuro: Awake, alert, oriented. Cranial nerves II through XII unremarkable. Cerebellum unremarkable. Motor and sensory unremarkable throughout. Exam nonfocal. Diagnostics: None Therapeutics: None Impression: #1 medically clear for incarceration Definitive disposition and diagnosis as appropriate pending reevaluation and review of above. - Related Data Allergies Allergy/AdvReac Type Severity Reaction Status Date / Time No Known Allergies Allergy Verified 05/30/18 08:03 Home Meds: Home Meds . [No Known Home Meds] 07/01/18 [History] Past Medical History - Past Health History Medical/Surgical History: Denies Medical/Surgical History Gastrointestinal History: Reports: Other (See Below) Other Gastrointestinal History: occasional heartburn Genitourinary History: Reports: None POST SECONDARY PROFESSIONAL History: Reports: Other (See Below) Other POST SECONDARY PROFESSIONAL History: missed AB June 2016 Musculoskeletal History: Reports: Other (See Below) Other Musculoskeletal History: scoliosis Hematologic History: Reports: Anemia, Blood Transfusion(s) - Infectious Disease History Infectious Disease History: Reports: None - Past Surgical History Head Surgeries/Procedures: Reports: None Female Surgical History: Reports: D&C Musculoskeletal Surgical History: Reports: None Social & Family History - Family History Family Medical History: Noncontributory - Caffeine Use Caffeine Use: Reports: Coffee, Tea ED ROS GENERAL - Review of Systems Review Of Systems: ROS reveals no pertinent complaints other than HPI. ED EXAM, GENERAL - Physical Exam Exam: See Below (See dictation) Course - Orders/Labs/Meds Labs: Laboratory Tests 07/08/18 Range/Units 23:33 POC Glucose 117 H (60-110) mg/dL Departure - Departure Time of Disposition: 23:37 Disposition: Home, Self-Care 01 Condition: Good Clinical Impression: Medical clearance for incarceration - Discharge Information Referrals: PCP,None [Primary Care Provider] - Additional Instructions: The following information is given to patients seen in the emergency department who are being discharged to home. This information is to outline your options for follow-up care. We provide all patients seen in our emergency department with a follow-up referral. The need for follow-up, as well as the timing and circumstances, are variable depending upon the specifics of your emergency department visit. If you don't have a primary care physician on staff, we will provide you with a referral. We always advise you to contact your personal physician following an emergency department visit to inform them of the circumstance of the visit and for follow-up with them and/or the need for any referrals to a consulting specialist. The emergency department will also refer you to a specialist when appropriate. This referral assures that you have the opportunity for followup care with a specialist. All of these measure are taken in an effort to provide you with optimal care, which includes your followup. Under all circumstances we always encourage you to contact your private physician who remains a resource for coordinating your care. When calling for followup care, please make the office aware that this follow-up is from your recent emergency room visit. If for any reason you are refused follow-up, please contact the [facility] emergency department at and asked to speak to the emergency department charge nurse. Follow-up primary medical doctor as needed as discussed return as needed as discussed
== END 2018-07-08 23:47 ==
LOC: MW.ED 23:25
DX: Z02.89 Encounter for other administrative examinations (principal)
CPT/HCPCS: 82962; 99282; 99283

== ENCOUNTER 2018-08-10 14:59 | Emergency (ER) | payer MEDICAID ==
--- NOTE | 2018-08-10 15:10 | EDM.PDOC ---
ED HPI GENERAL MEDICAL PROBLEM - General Chief Complaint: Headache Stated Complaint: PREG. DIZZY Time Seen by Provider: 08/10/18 15:04 - History of Present Illness INITIAL COMMENTS - FREE TEXT/NARRATIVE: HISTORY AND PHYSICAL: History of present illness: Patient is 23-year-old female 16 weeks presents with a concern of dizziness and headache she denies trauma denies nausea vomiting numbness weakness or other complaints. He has had care in a documented intrauterine Review of systems: As per history of present illness and below otherwise all systems reviewed and negative. Past medical history: As per history of present illness and as reviewed below otherwise noncontributory. Surgical history: As per history of present illness and as reviewed below otherwise noncontributory. Social history: No reported history of drug or alcohol abuse. Family history: As per history of present illness and as reviewed below otherwise noncontributory. Physical exam: HEENT: Atraumatic, normocephalic, pupils reactive, negative for conjunctival pallor or scleral icterus, mucous membranes moist, throat clear, neck supple, nontender, trachea midline. Lungs: Clear to auscultation, breath sounds equal bilaterally, chest nontender. Heart: S1S2, regular, negative for clicks, rubs, or JVD. Abdomen: Soft, nondistended, nontender. Negative for masses or hepatosplenomegaly. Negative for costovertebral tenderness. Pelvis: Stable nontender. Genitourinary: Deferred. Rectal: Deferred. Extremities: Atraumatic, negative for cords or calf pain. Neurovascular unremarkable. Neuro: Awake, alert, oriented. Cranial nerves II through XII unremarkable. Cerebellum unremarkable. Motor and sensory unremarkable throughout. Exam nonfocal. Diagnostics: CBC CMP UA Therapeutics: Saline 1 L bolus Impression: #1 16 week intrauterine #2 medical screening exam #3 cephalgia #4 dizziness Definitive disposition and diagnosis as appropriate pending reevaluation and review of above. headache Pain Score (Numeric/FACES): 7 - Related Data Allergies Allergy/AdvReac Type Severity Reaction Status Date / Time No Known Allergies Allergy Verified 08/10/18 15:05 Home Meds: Home Meds . [No Known Home Meds] 07/01/18 [History] Past Medical History - Past Health History Medical/Surgical History: Denies Medical/Surgical History Gastrointestinal History: Reports: Other (See Below) Other Gastrointestinal History: occasional heartburn Genitourinary History: Reports: None BOOKSTORE MANAGER History: Reports: Other (See Below) Other BOOKSTORE MANAGER History: missed AB June 2016 Musculoskeletal History: Reports: Other (See Below) Other Musculoskeletal History: scoliosis Hematologic History: Reports: Anemia, Blood Transfusion(s) - Infectious Disease History Infectious Disease History: Reports: None - Past Surgical History Head Surgeries/Procedures: Reports: None Female Surgical History: Reports: D&C Musculoskeletal Surgical History: Reports: None Social & Family History - Family History Family Medical History: Noncontributory - Caffeine Use Caffeine Use: Reports: Coffee, Tea ED ROS GENERAL - Review of Systems Review Of Systems: ROS reveals no pertinent complaints other than HPI. ED EXAM, GENERAL - Physical Exam Exam: See Below (The dictation) Course - Vital Signs Last Recorded V/S: Last Vital Signs Temp 35.7 C 08/10/18 15:04 Pulse 99 08/10/18 15:04 Resp 18 08/10/18 15:04 BP 117/63 08/10/18 15:04 Pulse Ox 100 08/10/18 15:04 - Orders/Labs/Meds Labs: Laboratory Tests 08/10/18 08/10/18 08/10/18 Range/Units 15:10 15:10 15:12 WBC 6.57 (4.0-11.0) K/uL RBC 3.70 L (4.30-5.90) M/uL Hgb 10.5 L (12.0-16.0) g/dL Hct 31.6 L (36.0-46.0) % MCV 85.4 (80.0-98.0) fL MCH 28.4 (27.0-32.0) pg MCHC 33.2 (31.0-37.0) g/dL RDW Std Deviation 42.5 (28.0-62.0) fl RDW Coeff of Dionne 14 (11.0-15.0) % Plt Count 197 (150-400) K/uL MPV 10.60 (7.40-12.00) fL Neut % (Auto) 63.7 (48.0-80.0) % Lymph % (Auto) 27.1 (16.0-40.0) % Roberts % (Auto) 8.7 (0.0-15.0) % Eos % (Auto) 0.3 (0.0-7.0) % Baso % (Auto) 0.2 (0.0-1.5) % Neut # (Auto) 4.2 (1.4-5.7) K/uL Lymph # (Auto) 1.8 (0.6-2.4) K/uL Roberts # (Auto) 0.6 (0.0-0.8) K/uL Eos # (Auto) 0.0 (0.0-0.7) K/uL Baso # (Auto) 0.0 (0.0-0.1) K/uL Nucleated RBC % 0.0 /100WBC Nucleated RBCs # 0 K/uL Sodium 137 (136-145) mmol/L Potassium 3.4 L (3.5-5.1) mmol/L Chloride 104 (98-107) mmol/L Carbon Dioxide 24.6 (21.0-32.0) mmol/L BUN 7 (7.0-18.0) mg/dL Creatinine 0.7 (0.6-1.0) mg/dL Est Cr Clr Drug Dosing 104.28 mL/min Estimated GFR (MDRD) > 60.0 ml/min Glucose 74 (74-106) mg/dL Calcium 8.5 (8.5-10.1) mg/dL Total Bilirubin 0.6 (0.2-1.0) mg/dL AST 15 (15-37) IU/L ALT 18 (14-63) IU/L Alkaline Phosphatase 32 L (46-116) U/L Total Protein 6.7 (6.4-8.2) g/dL Albumin 3.1 L (3.4-5.0) g/dL Globulin 3.6 (2.6-4.0) g/dL Albumin/Globulin Ratio 0.9 (0.9-1.6) Urine Color YELLOW Urine Appearance CLEAR Urine pH 7.5 (5.0-8.0) Ur Specific [place] <= 1.005 (1.001-1.035) Urine Protein NEGATIVE (NEGATIVE) mg/dL Urine Glucose (UA) NEGATIVE (NEGATIVE) mg/dL Urine Ketones NEGATIVE (NEGATIVE) mg/dL Urine Occult Blood NEGATIVE (NEGATIVE) Urine Nitrite NEGATIVE (NEGATIVE) Urine Bilirubin NEGATIVE (NEGATIVE) Urine Urobilinogen 0.2 (<2.0) EU/dL Ur Leukocyte Esterase NEGATIVE (NEGATIVE) Urine HCG, Qual (NEGATIVE) 08/10/18 Range/Units 16:15 WBC (4.0-11.0) K/uL RBC (4.30-5.90) M/uL Hgb (12.0-16.0) g/dL Hct (36.0-46.0) % MCV (80.0-98.0) fL MCH (27.0-32.0) pg MCHC (31.0-37.0) g/dL RDW Std Deviation (28.0-62.0) fl RDW Coeff of Dionne (11.0-15.0) % Plt Count (150-400) K/uL MPV (7.40-12.00) fL Neut % (Auto) (48.0-80.0) % Lymph % (Auto) (16.0-40.0) % Roberts % (Auto) (0.0-15.0) % Eos % (Auto) (0.0-7.0) % Baso % (Auto) (0.0-1.5) % Neut # (Auto) (1.4-5.7) K/uL Lymph # (Auto) (0.6-2.4) K/uL Roberts # (Auto) (0.0-0.8) K/uL Eos # (Auto) (0.0-0.7) K/uL Baso # (Auto) (0.0-0.1) K/uL Nucleated RBC % /100WBC Nucleated RBCs # K/uL Sodium (136-145) mmol/L Potassium (3.5-5.1) mmol/L Chloride (98-107) mmol/L Carbon Dioxide (21.0-32.0) mmol/L BUN (7.0-18.0) mg/dL Creatinine (0.6-1.0) mg/dL Est Cr Clr Drug Dosing mL/min Estimated GFR (MDRD) ml/min Glucose (74-106) mg/dL Calcium (8.5-10.1) mg/dL Total Bilirubin (0.2-1.0) mg/dL AST (15-37) IU/L ALT (14-63) IU/L Alkaline Phosphatase (46-116) U/L Total Protein (6.4-8.2) g/dL Albumin (3.4-5.0) g/dL Globulin (2.6-4.0) g/dL Albumin/Globulin Ratio (0.9-1.6) Urine Color Urine Appearance Urine pH (5.0-8.0) Ur Specific [place] (1.001-1.035) Urine Protein (NEGATIVE) mg/dL Urine Glucose (UA) (NEGATIVE) mg/dL Urine Ketones (NEGATIVE) mg/dL Urine Occult Blood (NEGATIVE) Urine Nitrite (NEGATIVE) Urine Bilirubin (NEGATIVE) Urine Urobilinogen (<2.0) EU/dL Ur Leukocyte Esterase (NEGATIVE) Urine HCG, Qual POSITIVE (NEGATIVE) Meds: Medications Discontinued Medications Generic Name Dose Route Start Last Admin Trade Name Freq PRN Reason Stop Dose Admin Sodium Chloride 1,000 mls @ 999 mls/hr 08/10/18 15:12 08/10/18 15:27 Normal Saline IV 08/10/18 16:12 999 mls/hr STAT ONE Administration Departure - Departure Time of Disposition: 16:37 Disposition: Home, Self-Care 01 Condition: Good Clinical Impression: Second trimester , Cephalgia, Dizziness - Discharge Information Referrals: PCP,Unknown [Primary Care Provider] - Forms: ED Department Discharge Additional Instructions: The following information is given to patients seen in the emergency department who are being discharged to home. This information is to outline your options for follow-up care. We provide all patients seen in our emergency department with a follow-up referral. The need for follow-up, as well as the timing and circumstances, are variable depending upon the specifics of your emergency department visit. If you don't have a primary care physician on staff, we will provide you with a referral. We always advise you to contact your personal physician following an emergency department visit to inform them of the circumstance of the visit and for follow-up with them and/or the need for any referrals to a consulting specialist. The emergency department will also refer you to a specialist when appropriate. This referral assures that you have the opportunity for followup care with a specialist. All of these measure are taken in an effort to provide you with optimal care, which includes your followup. Under all circumstances we always encourage you to contact your private physician who remains a resource for coordinating your care. When calling for followup care, please make the office aware that this follow-up is from your recent emergency room visit. If for any reason you are refused follow-up, please contact the [facility] emergency department at and asked to speak to the emergency department charge nurse. Push fluids Tylenol as directed follow-up private medical doctor and BOOKSTORE MANAGER as discussed and return as needed as discussed
[2018-08-10] MEDS ORDERED: Sodium Chloride 0.9% 1,000 ML IV ONE (15:12)
[2018-08-10 15:47] LABS: CHLORIDE,CL 104 mmol/L (98-107); SODIUM,NA 137 mmol/L (136-145)
[2018-08-10 16:51] VITALS: BP 96/54
== END 2018-08-10 16:45 | disposition home or self-care (01) ==
LOC: MW.ED 14:59
DX: O99.89 Other specified diseases and conditions complicating pregnancy, childbirth and the puerperium (principal); R42 Dizziness and giddiness; R51 Headache; Z3A.16 16 weeks gestation of pregnancy
CPT/HCPCS: 36415; 80053; 81003; 81025; 85025; 93005; 96360; 99284; J7040

== ENCOUNTER 2018-09-09 06:57 | Observation (INO) | payer MEDICAID ==
[2018-09-09] MEDS: Lactated Ringers 1,000 ML IV SCH ×2 (08:45→19:43)
[2018-09-09] MEDS ORDERED: Azithromycin 1,000 MG in Sodium Chloride 0.9% 500 ML IV ONE (09:11)
[2018-09-09] MEDS ORDERED: Indomethacin 25 MG Cap PO ONE (09:11)
--- NOTE | 2018-09-09 13:44 | US ---
EXAMINATION: Transabdominal obstetric ultrasound HISTORY: Check cervical length COMPARISON: 07/01/2018 TECHNIQUE: Grayscale, color Doppler, and real-time imaging obtained. FINDINGS: Single live intrauterine is noted in a cephalic position. The cervix appears open with bulging of the amniotic sac. Remaining Cervical length is thin at approximately 8 mm. heart rate at this time is 148 bpm. IMPRESSION: 1. Opening of the endocervical canal is likely bulging of membranes.
[2018-09-09] MEDS: Indomethacin 25 MG Cap PO SCH ×2 (15:49→22:35)
--- NOTE | 2018-09-09 20:13 | PCM.PREANE ---
Preanesthetic Assessment - Anesthesia/Transfusion/Family Hx Anesthesia History: Prior Anesthesia Without Reaction Transfusion History: No Prior Transfusion(s) - Review of Systems General: No Symptoms Pulmonary: Other (patient states that she has nasal congestion due to being in the head down position) Cardiovascular: No Symptoms Gastrointestinal: No Symptoms Neurological: No Symptoms Other: Reports: None - Physical Assessment Height: 1.6 m Weight: 54.431 kg ASA Class: 2E Mental Status: Alert & Oriented x3 Airway Class: Mallampati = 2 Dentition: Reports: Normal Dentition Thyro-Mental Finger Breadths: 3 Mouth Opening Finger Breadths: 3 ROM/Head Extension: Full Lungs: Clear to Auscultation, Normal Respiratory Effort Cardiovascular: Regular Rate, Regular Rhythm - Lab Values: Laboratory Last Values WBC 7.56 K/uL (4.0-11.0) 09/09/18 10:16 RBC 3.77 M/uL (4.30-5.90) L 09/09/18 10:16 Hgb 10.7 g/dL (12.0-16.0) L 09/09/18 10:16 Hct 32.1 % (36.0-46.0) L 09/09/18 10:16 MCV 85.1 fL (80.0-98.0) 09/09/18 10:16 MCH 28.4 pg (27.0-32.0) 09/09/18 10:16 MCHC 33.3 g/dL (31.0-37.0) 09/09/18 10:16 RDW Std Deviation 40.2 fl (28.0-62.0) 09/09/18 10:16 RDW Coeff of Dionne 13 % (11.0-15.0) 09/09/18 10:16 Plt Count 212 K/uL (150-400) 09/09/18 10:16 MPV 10.60 fL (7.40-12.00) 09/09/18 10:16 Neut % (Auto) 66.7 % (48.0-80.0) 09/09/18 10:16 Lymph % (Auto) 25.8 % (16.0-40.0) 09/09/18 10:16 [place] % (Auto) 6.9 % (0.0-15.0) 09/09/18 10:16 Eos % (Auto) 0.3 % (0.0-7.0) 09/09/18 10:16 Baso % (Auto) 0.3 % (0.0-1.5) 09/09/18 10:16 Neut # (Auto) 5.1 K/uL (1.4-5.7) 09/09/18 10:16 Lymph # (Auto) 2.0 K/uL (0.6-2.4) 09/09/18 10:16 [place] # (Auto) 0.5 K/uL (0.0-0.8) 09/09/18 10:16 Eos # (Auto) 0.0 K/uL (0.0-0.7) 09/09/18 10:16 Baso # (Auto) 0.0 K/uL (0.0-0.1) 09/09/18 10:16 Nucleated RBC % 0.0 /100WBC 09/09/18 10:16 Nucleated RBCs # 0 K/uL 09/09/18 10:16 Urine Color YELLOW 09/09/18 07:55 Urine Appearance CLEAR 09/09/18 07:55 Urine pH 7.0 (5.0-8.0) 09/09/18 07:55 Ur Specific [place] <= 1.005 (1.001-1.035) 09/09/18 07:55 Urine Protein NEGATIVE mg/dL (NEGATIVE) 09/09/18 07:55 Urine Glucose (UA) NEGATIVE mg/dL (NEGATIVE) 09/09/18 07:55 Urine Ketones NEGATIVE mg/dL (NEGATIVE) 09/09/18 07:55 Urine Occult Blood NEGATIVE (NEGATIVE) 09/09/18 07:55 Urine Nitrite NEGATIVE (NEGATIVE) 09/09/18 07:55 Urine Bilirubin NEGATIVE (NEGATIVE) 09/09/18 07:55 Urine Urobilinogen 0.2 EU/dL (<2.0) 09/09/18 07:55 Ur Leukocyte Esterase NEGATIVE (NEGATIVE) 09/09/18 07:55 Blood Type A POSITIVE 09/09/18 10:16 Antibody Screen NEGATIVE 09/09/18 10:16 - Allergies Allergies/Adverse Reactions: Allergies Allergy/AdvReac Type Severity Reaction Status Date / Time No Known Allergies Allergy Verified 08/10/18 15:05 - Anesthesia Plan Pre-Op Medication Ordered: Antacids (bicitra. ) - Acknowledgements Anesthesia Type Planned: Spinal (patient states that she has scoliosis. Discussed that this increases the difficulty of placing the spinal due to her anatomical anomaly. Discussed possible chronic back pain, and possible conversion to general anesthesia if the spinal is unsuccessful. ) Pt an Appropriate Candidate for the Planned Anesthesia: Yes Alternatives and Risks of Anesthesia Discussed w Pt/Guardian: Yes Pt/Guardian Understands and Agrees with Anesthesia Plan: Yes PreAnesthesia Questionnaire - Past Health History Medical/Surgical History: Denies Medical/Surgical History HEENT History: Reports: None Cardiovascular History: Reports: None Respiratory History: Reports: None Gastrointestinal History: Reports: Other (See Below) Other Gastrointestinal History: occasional heartburn Genitourinary History: Reports: None LABEL FUSER TENDER History: Reports: , Other (See Below) Other OB/BYN History: missed AB June 2016 Musculoskeletal History: Reports: Other (See Below) Other Musculoskeletal History: scoliosis Neurological History: Reports: None Psychiatric History: Reports: None Endocrine/Metabolic History: Reports: None Hematologic History: Reports: Anemia, Blood Transfusion(s) Immunologic History: Reports: None Oncologic (Cancer) History: Reports: None Dermatologic History: Reports: None - Infectious Disease History Infectious Disease History: Reports: None - Past Surgical History Head Surgeries/Procedures: Reports: None HEENT Surgical History: Reports: None Cardiovascular Surgical History: Reports: None Respiratory Surgical History: Reports: None Female Surgical History: Reports: D&C Endocrine Surgical History: Reports: None Neurological Surgical History: Reports: None Musculoskeletal Surgical History: Reports: None Oncologic Surgical History: Reports: None Dermatological Surgical History: Reports: None - SUBSTANCE USE Smoking Status *Q: Light Tobacco Smoker (occasional for 3 years.) Days Per Week of Alcohol Use: 0 (none during . ) Recreational Drug Use History: No Recreational Drug Type: Reports: Marijuana/Hashish (is exposed to second hand. denies alll other illicit drug use.) - HOME MEDS Home Medications: Home Meds . [No Known Home Meds] 07/01/18 [History] - CURRENT (IN HOUSE) MEDS Current Meds: Current Medications Lactated Ringer's (Ringers, Lactated) 1,000 mls @ 150 mls/hr IV ASDIRECTED JOSI Last Admin: 09/09/18 19:43 Dose: 150 mls/hr Indomethacin (Indocin) 50 mg PO Q6H JOSI Last Admin: 09/09/18 15:49 Dose: 50 mg Discontinued Medications Azithromycin 1,000 mg/ Sodium (Chloride) 500 mls @ 250 mls/hr IV ONETIME ONE Stop: 09/09/18 11:10 Last Admin: 09/09/18 10:11 Dose: 250 mls/hr Indomethacin (Indocin) 100 mg PO ONETIME ONE Stop: 09/09/18 09:12 Last Admin: 09/09/18 10:00 Dose: 100 mg
[2018-09-10] MEDS: Lactated Ringers 1,000 ML IV SCH (02:20)
[2018-09-10] MEDS: Indomethacin 25 MG Cap PO SCH (04:05)
[2018-09-10] MEDS ORDERED: Ketorolac 30 MG/ML SDV IVPUSH ONE (04:59)
[2018-09-10] MEDS ORDERED: ceFAZolin 2 GM in Premix Bag 1 BAG IV ONE (06:29)
[2018-09-10] MEDS ORDERED: Phenylephrine/Normal Saline 100 MCG/ML 10 ML Syringe ONE (07:16)
[2018-09-10] MEDS ORDERED: ceFAZolin 1 GM Vial ONE (07:39)
[2018-09-10] MEDS ORDERED: Ondansetron 4 MG/2 ML SDV IVPUSH PRN ×2 (07:48→08:34)
[2018-09-10] MEDS ORDERED: Dexamethasone 4 MG/ML 5 ML MDV ONE (08:16)
[2018-09-10] MEDS ORDERED: Acetaminophen/oxyCODONE 325-5 MG Tab PO PRN (08:34)
[2018-09-10] MEDS ORDERED: Promethazine 25 MG/ML SDV IM PRN (08:34)
--- NOTE | 2018-09-10 08:34 | PCM.OPNOTE ---
- General Post-Op/Procedure Note Date of Surgery/Procedure: 09/10/18 Operative Procedure(s): Rescue Cervical Cerclage Findings: Shortened cervix , with dilation about 2-3 cm with membrane visible Prolapsed membrane reduced with reno containing 30cc of fluid Purse string suture placed from 12 oclock back to 12 oclock ( X 2) Pre Op Diagnosis: Cervical Insufficiency with cervical dilatation Post-Op Diagnosis: same Anesthesia Technique: Spinal Primary Surgeon: Petty Sanchez Secondary Surgeon: Christina Berry Fluid Replacement, Intraop: 900 Output, Urine Amount: 450 EBL in mLs: 5 Complications: None Condition: Good Free Text/Narrative:: Intake & Output 09/09/18 09/10/18 09/10/18 22:59 06:59 14:59 Output Total 1250 600 Balance -1250 -600
[2018-09-10] MEDS ORDERED: Azithromycin 1,000 MG in Sodium Chloride 0.9% 500 ML IV ONE (08:37)
[2018-09-10 08:42] VITALS: BP 97/35
--- NOTE | 2018-09-10 08:43 | PCM.POSTAN ---
POST ANESTHESIA ASSESSMENT - MENTAL STATUS Mental Status: Alert, Oriented - RESPIRATORY Respiratory Status: Respiratory Rate WNL, Airway Patent, O2 Saturation Stable - CARDIOVASCULAR CV Status: Pulse Rate WNL, Blood Pressure Stable - GASTROINTESTINAL GI Status: No Symptoms Free Text/Narrative:: Nausea and vomitting which resolved with decadron 8 mg iv given by me at 0833, and zofran given by Na - PAIN Pain Score: 0 - POST OP HYDRATION Hydration Status: Adequate & Stable - OBSERVATIONS Free Text/Narrative:: The patient has no complaints at this time. There were no apparent anesthetic complications at this time.
[2018-09-10] MEDS: Ketorolac 30 MG/ML SDV IVPUSH SCH ×4 (11:31→23:54)
[2018-09-10] MEDS ORDERED: Metoclopramide 10 MG/2 ML SDV IVPUSH PRN (18:27)
[2018-09-10] MEDS ORDERED: PROGESTERONE 200 MG SCH (21:00)
[2018-09-10] MEDS ORDERED: PROGESTERONE 200 MG VAG SCH (21:00)
--- NOTE | 2018-09-11 02:49 | OR ---
SURGEON: ODILIA RUGGIERO DATE OF PROCEDURE: 09/10/2018 PREOPERATIVE DIAGNOSES: A 23-year-old 2, para 0-0-1-0 at 20 weeks 5 days. Cervical insufficiency with prolapse of membranes. cervical dilatation. POSTOPERATIVE DIAGNOSES: Same PROCEDURE PERFORMED: Rescue cervical cerclage. ESTIMATED BLOOD LOSS: 5 mL. IV FLUIDS: 900. URINE OUTPUT: 450. ANESTHESIA: Spinal. FINDING: Speculum exam showed dilated cervix about 2 cm dilated with prolapsed membrane. BRIEF HISTORY The patient came to L&D complaining of contractions. She was examined and noted to have cervical dilatation with membranes visible. Maternal- medicine doctor was consulted and recommended indomethacin for 24 hrs and cervical cerclage done after 24 hours if patient is stable. He also recommended antibiotics. However, around 2 a.m., she was complaining of pelvic pressure and was given toradol which resolved the pelvic pressure.She was once again informed of the risk of prematurity, rupture of membranes, possible delivery , which my result in increased morbidity for the baby.The patient understood all the risk and decided to proceed. DESCRIPTION OF PROCEDURE: The patient was taken to the operating room where spinal anesthesia was performed without difficulty. The patient was placed in the dorsal lithotomy position with Giuseppe stirrups. A wedge was placed on the left side, a steep Trendelenburg position was obtained. The perineum was prepared. However, the vagina prepared with just normal saline slightly to avoid the membranes being contacted with Betadine. Then, the anterior and posterior lip of the cervix was grasped with a sponge forceps and the membrane was reduced with a Andres catheter. Then, a purse string suture of Prolene 1.0 on the CTX was taken form 3 to 12, 1 to 11 o'clock position, from 11 to 9 o'clock position, and 9 to 7 o'clock, 7 o'clock to 5 o'clock, 5 o'clock to 3 o'clock, and 3 o'clock back to about 12 o'clock position and was tied. Again, another Prolene stitch was placed in the same manner as above slightly lower than the previous suture. Hemostasis was noted after the procedure. During the procedure, the patient received Ancef. The patient will be observed for 24 hours, and she will receive another azithromycin antibiotic after which she will be discharged to home. The patient tolerated the procedure well and was taken to the recovery room in stable condition. HENNA EUBANKS /[id number]
== END 2018-09-11 02:00 | disposition home or self-care (01) ==
LOC: MW.OBCHECK 06:57 → MW.OB 07:00 → MW.OBCHECK 16:56 → MW.OB 16:56
PROVIDERS: ADMIT Obstetrics & Gynecology; ATTEND Obstetrics & Gynecology
DX: O34.32 Maternal care for cervical incompetence, second trimester (principal); O99.332 Smoking (tobacco) complicating pregnancy, second trimester; F17.200 Nicotine dependence, unspecified, uncomplicated; Z3A.20 20 weeks gestation of pregnancy
CPT/HCPCS: 36415; 51702; 76815; 76815-26; 81003; 85025; 86850; 86900; 86901; 87491; 87591; 96361; 96365; 96366; 96375; 96376; A9270-GY; G0378; J0456; J0690; J1100; J1885; J2370; J2765; J7040; J7120

== ENCOUNTER 2018-11-11 17:36 | Emergency (ER) | payer MEDICAID ==
--- NOTE | 2018-11-11 17:41 | EDM.PDOC ---
ED HPI GENERAL MEDICAL PROBLEM - General Stated Complaint: BACK PAIN Time Seen by Provider: 11/11/18 17:36 Source of Information: Reports: Patient History Limitations: Reports: No Limitations - History of Present Illness INITIAL COMMENTS - FREE TEXT/NARRATIVE: HISTORY AND PHYSICAL: History of present illness: Patient is a 23-year-old female who presents to the emergency room with complaints of thoracic back pain that radiates into her right scapula. She states the pain started shortly after delivery of her baby on October 03, 2018. She had a vaginal delivery at 24 weeks gestation, baby is currently in [facility]. She states she had a follow-up appointment last week, then was informed her appointment was canceled and did not attempt to make a follow-up appointment. She states he Review of systems: As per history of present illness and below otherwise all systems reviewed and negative. Past medical history: As per history of present illness and as reviewed below otherwise noncontributory. Surgical history: As per history of present illness and as reviewed below otherwise noncontributory. Social history: See social history for further information Family history: As per history of present illness and as reviewed below otherwise noncontributory. Physical exam: General: Well-developed and well-nourished 23-year-old female. Alert and oriented. Nontoxic appearing and in no acute distress. HEENT: Atraumatic, normocephalic, pupils equal and reactive bilaterally, negative for conjunctival pallor or scleral icterus, mucous membranes moist, TMs normal bilaterally, throat clear, neck supple, nontender, trachea midline. No drooling or trismus noted. No meningeal signs. No hot potato voice noted. Lungs: Clear to auscultation, breath sounds equal bilaterally, chest nontender. Heart: S1S2, regular rate and rhythm without overt murmur Abdomen: Soft, nondistended, nontender. Negative for masses or hepatosplenomegaly. Negative for costovertebral tenderness. Pelvis: Stable nontender. Genitourinary: Deferred. Rectal: Deferred. C-spine/Back: No pinpoint vertebral tenderness upon palpation. No crepitus, step -offs or obvious deformities. Paraspinous muscular tenderness to the midthoracic spine bilaterally. Patient is ambulatory into the emergency room without difficulty or deficit. Able to rock back on heels and walk on toes. Denies any urinary or fecal incontinence. Denies any numbness, tingling or saddle paresthesia. Skin: Intact, warm, dry. No lesions or rashes noted. Extremities: Atraumatic, moves all extremities per self without difficulty or deficits, negative for cords or calf pain. Neurovascular unremarkable. Neuro: Awake, alert, oriented. Cranial nerves II through XII unremarkable. Cerebellum unremarkable. Motor and sensory unremarkable throughout. Exam nonfocal. Notes: Patient states she is currently menstruating. She does have a follow-up appointment with her MANAGER DISTRIBUTION [facility] on Saturday. Encouraged her to keep this appointment. She states she may not be able to fill her Macrobid as she is currently experiencing some financial troubles. I will give her Rocephin IM while here. Supportive care measures were reviewed and discussed. Voices understanding and is agreeable to plan of care. Denies any further questions or concerns at this time. Diagnostics: CBC, CMP, UA, Thoracic Spine Therapeutics: Rocephin, Toradol Prescription: Macrobid Impression: Back Pain UTI Plan: 1. Increase your oral fluids. Take the antibiotic as prescribed. 2. Tylenol and/or ibuprofen as needed for pain management. 3. Follow-up with your MANAGER [employer]RIBUTION/primary care provider as discussed. Return to the ED as needed and as discussed. Definitive disposition and diagnosis as appropriate pending reevaluation and review of above. Middle Back Pain Score (Numeric/FACES): 8 - Related Data Allergies Allergy/AdvReac Type Severity Reaction Status Date / Time No Known Allergies Allergy Verified 11/11/18 17:46 Home Meds: Home Meds Nitrofurantoin Monohyd/M-Cryst [Macrobid 100 mg Capsule] 100 mg PO BID #10 capsule 11/11/18 [Rx] traMADol [Ultram] 50 mg PO Q4H PRN #15 tab 11/11/18 [Rx] Past Medical History - Past Health History Medical/Surgical History: Denies Medical/Surgical History HEENT History: Reports: None Cardiovascular History: Reports: None Respiratory History: Reports: None Gastrointestinal History: Reports: Other (See Below) Other Gastrointestinal History: occasional heartburn Genitourinary History: Reports: None MANAGER [employer]ION History: Reports: , Other (See Below) Other MANAGER [employer]ION History: missed AB June 2016 Musculoskeletal History: Reports: Other (See Below) Other Musculoskeletal History: scoliosis Neurological History: Reports: None Psychiatric History: Reports: None Endocrine/Metabolic History: Reports: None Hematologic History: Reports: Anemia, Blood Transfusion(s) Immunologic History: Reports: None Oncologic (Cancer) History: Reports: None Dermatologic History: Reports: None - Infectious Disease History Infectious Disease History: Reports: None - Past Surgical History Head Surgeries/Procedures: Reports: None HEENT Surgical History: Reports: None Cardiovascular Surgical History: Reports: None Respiratory Surgical History: Reports: None Female Surgical History: Reports: D&C Endocrine Surgical History: Reports: None Neurological Surgical History: Reports: None Musculoskeletal Surgical History: Reports: None Oncologic Surgical History: Reports: None Dermatological Surgical History: Reports: None Social & Family History - Family History Family Medical History: Noncontributory - Caffeine Use Caffeine Use: Reports: Coffee, Tea ED ROS GENERAL - Review of Systems Review Of Systems: ROS reveals no pertinent complaints other than HPI. ED EXAM,LOWER BACK PAIN/INJURY - Physical Exam Exam: See Below (See dictation) Course - Vital Signs Last Recorded V/S: Last Vital Signs Temp 97.5 F 11/11/18 19:04 Pulse 93 11/11/18 19:04 Resp 18 11/11/18 19:04 BP 105/73 11/11/18 19:04 Pulse Ox 98 11/11/18 19:04 - Orders/Labs/Meds Labs: Laboratory Tests 11/11/18 11/11/18 11/11/18 Range/Units 17:50 18:00 18:00 WBC 3.18 L (4.0-11.0) K/uL RBC 4.63 (4.30-5.90) M/uL Hgb 12.4 (12.0-16.0) g/dL Hct 38.0 (36.0-46.0) % MCV 82.1 (80.0-98.0) fL MCH 26.8 L (27.0-32.0) pg MCHC 32.6 (31.0-37.0) g/dL RDW Std Deviation 40.1 (28.0-62.0) fl RDW Coeff of Dionne 14 (11.0-15.0) % Plt Count 219 (150-400) K/uL MPV 10.80 (7.40-12.00) fL Neut % (Auto) 44.7 L (48.0-80.0) % Lymph % (Auto) 43.4 H (16.0-40.0) % [place] % (Auto) 9.4 (0.0-15.0) % Eos % (Auto) 2.2 (0.0-7.0) % Baso % (Auto) 0.3 (0.0-1.5) % Neut # (Auto) 1.4 (1.4-5.7) K/uL Lymph # (Auto) 1.4 (0.6-2.4) K/uL [place] # (Auto) 0.3 (0.0-0.8) K/uL Eos # (Auto) 0.1 (0.0-0.7) K/uL Baso # (Auto) 0.0 (0.0-0.1) K/uL Nucleated RBC % 0.0 /100WBC Nucleated RBCs # 0 K/uL Sodium 143 (136-145) mmol/L Potassium 3.4 L (3.5-5.1) mmol/L Chloride 105 (98-107) mmol/L Carbon Dioxide 28.4 (21.0-32.0) mmol/L BUN 6 L (7.0-18.0) mg/dL Creatinine 0.8 (0.6-1.0) mg/dL Est Cr Clr Drug Dosing 91.24 mL/min Estimated GFR (MDRD) > 60.0 ml/min Glucose 96 (74-106) mg/dL Calcium 9.1 (8.5-10.1) mg/dL Total Bilirubin 1.0 (0.2-1.0) mg/dL AST 13 L (15-37) IU/L ALT 15 (14-63) IU/L Alkaline Phosphatase 57 (46-116) U/L Total Protein 7.3 (6.4-8.2) g/dL Albumin 3.7 (3.4-5.0) g/dL Globulin 3.6 (2.6-4.0) g/dL Albumin/Globulin Ratio 1.0 (0.9-1.6) Urine Color YELLOW Urine Appearance SLT CLOUDY Urine pH 6.0 (5.0-8.0) Ur Specific [place] 1.025 (1.001-1.035) Urine Protein NEGATIVE (NEGATIVE) mg/dL Urine Glucose (UA) NEGATIVE (NEGATIVE) mg/dL Urine Ketones NEGATIVE (NEGATIVE) mg/dL Urine Occult Blood LARGE H (NEGATIVE) Urine Nitrite NEGATIVE (NEGATIVE) Urine Bilirubin NEGATIVE (NEGATIVE) Urine Urobilinogen 1.0 (<2.0) EU/dL Ur Leukocyte Esterase NEGATIVE (NEGATIVE) Urine RBC 1-3 (0-2/HPF) Urine WBC 2-4 (0-5/HPF) Ur Epithelial Cells MODERATE (NONE-FEW) Urine Bacteria FEW (NEGATIVE) Urine Mucus MODERATE (NONE-MOD) Meds: Medications Discontinued Medications Generic Name Dose Route Start Last Admin Trade Name Freq PRN Reason Stop Dose Admin Ceftriaxone Sodium 1 gm 11/11/18 18:32 11/11/18 18:40 Rocephin IM 11/11/18 18:33 1 gm ONETIME ONE Administration Ketorolac Tromethamine 60 mg 11/11/18 17:48 11/11/18 17:59 Toradol IM 11/11/18 17:49 60 mg ONETIME ONE Administration Lidocaine HCl 2 ml 11/11/18 18:32 11/11/18 18:40 Xylocaine-Mpf 1% INJECT 11/11/18 18:33 2 ml ONETIME ONE Administration Departure - Departure Time of Disposition: 18:33 Disposition: Home, Self-Care 01 Clinical Impression: Back pain Qualifiers: Back pain location: thoracic back pain Chronicity: unspecified Back pain laterality: right Qualified Code(s): M54.6 - Pain in thoracic spine UTI (urinary tract infection) Qualifiers: Urinary tract infection type: site unspecified Hematuria presence: with hematuria Qualified Code(s): N39.0 - Urinary tract infection, site not specified - Discharge Information Prescriptions: Nitrofurantoin Monohyd/M-Cryst [Macrobid 100 mg Capsule] 100 mg PO BID #10 capsule traMADol [Ultram] 50 mg PO Q4H PRN #15 tab PRN Reason: Pain Instructions: Acute Back Pain, Adult, Urinary Tract Infection, Adult Referrals: PCP,Unknown [Primary Care Provider] - Forms: ED Department Discharge Additional Instructions: The following information is given to patients seen in the emergency department who are being discharged to home. This information is to outline your options for follow-up care. We provide all patients seen in our emergency department with a follow-up referral. The need for follow-up, as well as the timing and circumstances, are variable depending upon the specifics of your emergency department visit. If you don't have a primary care physician on staff, we will provide you with a referral. We always advise you to contact your personal physician following an emergency department visit to inform them of the circumstance of the visit and for follow-up with them and/or the need for any referrals to a consulting specialist. The emergency department will also refer you to a specialist when appropriate. This referral assures that you have the opportunity for follow-up care with a specialist. All of these measure are taken in an effort to provide you with optimal care, which includes your follow-up. Under all circumstances we always encourage you to contact your private physician who remains a resource for coordinating your care. When calling for follow-up care, please make the office aware that this follow-up is from your recent emergency room visit. If for any reason you are refused follow-up, please contact the [facility] Emergency Department at and asked to speak to the emergency department charge nurse. [facility] [address] [place] [id number] [place] [address] 1. Increase your oral fluids. Take the antibiotic as prescribed. 2. Tylenol and/or ibuprofen as needed for pain management. 3. Follow-up with your MANAGER DISTRIBUTION or primary care provider as discussed. Return to the ED as needed and as discussed.
[2018-11-11] MEDS ORDERED: Ketorolac 60 MG/2 ML SDV IM ONE (17:48)
[2018-11-11 18:29] LABS: CHLORIDE,CL 105 mmol/L (98-107); SODIUM,NA 143 mmol/L (136-145)
--- NOTE | 2018-11-11 18:30 | CR ---
INDICATION: Back pain and injury. TECHNIQUE: Two-view. FINDINGS: Mild curvature of the lower thoracic and upper lumbar spine is identified which is convex to the right. Intervertebral disc space are well maintained. Alignment otherwise is preserved. No fracture, dislocation, significant degenerative change is seen. IMPRESSION: Mild curvature of the lower thoracic and upper lumbar spine is identified. No acute fracture or dislocation is seen. Intervertebral disc spaces appear well maintained. Dictated by Ryan Escalante MD @ Nov 11 2018 6:27PM Signed by Dr. Ryan Escalante @ Nov 11 2018 6:29PM
[2018-11-11] MEDS ORDERED: cefTRIAXone 1 GM Vial IM ONE (18:32)
[2018-11-11] MEDS ORDERED: Lidocaine 1% PF 2 ML SDV INJECT ONE (18:32)
[2018-11-11 19:04] VITALS: BP 105/73
== END 2018-11-11 19:05 | disposition home or self-care (01) ==
LOC: MW.ED 17:36
DX: O86.20 Urinary tract infection following delivery, unspecified (principal); O99.89 Other specified diseases and conditions complicating pregnancy, childbirth and the puerperium; M54.6 Pain in thoracic spine
CPT/HCPCS: 36415; 72070; 80053; 81001; 85025; 96372; 99283; J0696; J1885; J2001